=== PATIENT | male | born 1960 | race Caucasian/White ===

== ENCOUNTER 2019-11-20 09:38 | Outpatient (CLI) | payer MEDICARE, SELFPAY ==
--- NOTE | ~2019-11-20 | CT_ITS ---
EXAMINATION: CT lung screening EXAM DATE: 11/20/2019 10:03 INDICATION: Personal history of nicotine dependence. TECHNIQUE: Spiral low dose CT of the chest without contrast. Axial, coronal and sagittal images were reviewed. The dose-length product (DLP) for this examination was 124.01 mGy-cm. The exposure was t ailored according to patient size (auto mA exposure control), and iterative reconstruction (ASIR) was used as additional dose reduction technique. Comparison is made to prior examination from 11/11/2018. FINDINGS: Small ill-defined groundglass region difficult to measure has developed in the right middl e lobe measuring, just above the major fissure. It is about 1 cm in size. There is mild to moderate e mphysema and moderate hyperinflation. Tracheobronchial tree is patent. There is no mediastinal, hi lar or axillary lymphadenopathy. Trace pericardial effusion. There is no pneumothorax. Heart nor mal in size. There is moderate coronary arterial calcification, arterial sclerosis. Upper abdomen i s unremarkable. There is mild thoracic spondylosis without osteoblastic or osteolytic lesions ident ified. IMPRESSION: Lung-RADS category 2, benign appearance or behavior (<1% chance of malignancy); recommend continued LDCT screening in 1 year. Reviewed, dictated and finalized at location A.
== END 2019-11-20 09:39 | disposition home or self-care (01) ==
LOC: ANHIMG 09:48
PROVIDERS: PCP Family Medicine; Visit Provider Family Medicine
DX: Z12.2 Encounter for screening for malignant neoplasm of respiratory organs (principal); Z87.891 Personal history of nicotine dependence
CPT/HCPCS: G0297

== ENCOUNTER 2020-11-04 13:49 | Inpatient (IN) | payer MEDICARE, SELFPAY ==
[2020-11-04] VITALS (8 sets, daily range): BP systolic 92–166; BP diastolic 52–112; PULSE 101–107; RESP 16–22; TEMP 36.2–36.6; O2SAT 94–100; BMI 20.3
--- NOTE | ~2020-11-04 | CT_ITS ---
EXAMINATION: CT chest abdomen pelvis w con EXAM DATE: 11/04/2020 19:10 INDICATION: Altered mental status, syncope. Throat cancer. Low abdominal, mid and low back pain. TECHNIQUE: Spiral CT of the chest, abdomen and pelvis was performed following intravenous injection o f 100 mL Omnipaque 350. Axial, coronal and sagittal images chest, abdomen and pelvis were reviewed. Coronal maximum intensity pixel images of chest reviewed. The dose-length product (DLP) for this ex amination was 407.48 mGy-cm. The exposure was tailored according to patient size (auto mA exposure c ontrol), and iterative reconstruction (ASIR) was used as additional dose reduction technique. Compari son is made to prior examination from 11/20/2019, 11/11/2018. FINDINGS: CHEST: There is mild emphysema and mild bronchiectasis. There are some regions of subsolid left lowe r lobe density appearance most consistent with infectious, postinfectious, or chronic nonspecific pne umonitis (there was similar appearing opacity on prior study in different location). Bronchoalveolar cell cancer not excludable. There are no pleural or pericardial effusions. Tracheobronchial tree is patent. There is no mediastinal, hilar or axillary lymphadenopathy. There is no pneumothorax. Heart normal in size. There is moderate coronary arterial calcification, arterial sclerosis. ABDOMEN PELVIS: The liver, spleen, adrenal glands and pancreas are unremarkable. Gallbladder is unre markable. No biliary obstruction. Portal and splenic veins are patent. Kidneys enhance symmetrical ly. There is no hydronephrosis. The prostate is unremarkable. Small inguinal fat-containing hernia s. The bladder is distended but otherwise unremarkable. There is no retroperitoneal or pelvic lymph adenopathy. There is mild scattered arteriosclerotic disease. The appendix is normal. There is small sliding gastroesophageal hiatal hernia. There is expected am ount of colonic stool. No free intraperitoneal gas. There is mild compression fracture T11 superior endplate, could be acute. Right 4th through 6th subacute rib fractures laterally. There is a T12 bur st fracture with moderate loss of the height centrally, mild loss posteriorly, mild retropulsion supe rior endplate, about 3 mm only causing mild central canal stenosis. Sclerosis of this vertebral body indicates healing response, it is subacute, but is new compared to previous examination and can't exc lude acute component. No osteoblastic or osteolytic lesions identified. IMPRESSION: 1. Several small right lung groundglass opacities, different location than the previously seen opaci ty on prior study. Could be chronic process such as cryptogenic organizing pneumonia, acute or chroni c infectious process, less likely bronchoalveolar cell cancer. Recommend 6-12 month follow-up chest C T. 2. Mild emphysema and bronchiectasis. 3. T11 mild compression fracture which could be acute. 4. Subacute T12 burst fracture, subacute right 4th-6th rib fractures. Can't exclude superimposed acu te component to these. 5. Distended but otherwise unremarkable bladder. Reviewed, dictated and finalized at location A. IMPRESSION: 1. Several small right lung groundglass opacities, different location than the previously seen opacity on prior study. Could be chronic process such as crypt ogenic organizing pneumonia, acute or chronic infectious process, less likely b ronchoalveolar cell cancer. Recommend 6-12 month follow-up chest CT. 2. Mild emphysema and bronchiectasis. 3. T11 mild compression fracture which could be acute. 4. Subacute T12 burst fracture, subacute right 4th-6th rib fractures. Can't ex clude superimposed acute component to these. 5. Distended but otherwise unremarkable bladder.
--- NOTE | ~2020-11-04 | XR_ITS ---
EXAMINATION: XR lumbar spine 2-3V, XR thoracic spine 3V EXAM DATE: 11/04/2020 19:31 INDICATION: Syncope, multiple falls. Mid and low back pain. TECHNIQUE: Lumber spine frontal, lateral, lateral L5-S1 projections for interpretation. Thoracic spi ne frontal, lateral, swimmer's projections. Correlation was made with CT chest abdomen pelvis same da te. FINDINGS: There is T12 burst fracture, with healing response confirmed on CT same date. This has mod erate loss of its height centrally and anteriorly, mild loss posteriorly and slight retropulsion. There is mild compression fracture superior endplate T11 which could be acute. The vertebral body and disc heights are otherwise well maintained. The vertebral bodies are aligned in the AP dimension. Pa raspinal soft tissue is unremarkable. Mild to moderate lower lumbar spondylosis. IMPRESSION: 1. Mild acute T11 compression fracture. 2. Mild to moderate T12 burst fracture, likely subacute. Reviewed, dictated and finalized at location A. IMPRESSION: 1. Mild acute T11 compression fracture. 2. Mild to moderate T12 burst fracture, likely subacute.
--- NOTE | ~2020-11-04 | CT_ITS ---
EXAMINATION: CT brain wo con DATE: 11/04/2020 15:33 INDICATION: Syncope TECHNIQUE: Computed tomography (CT) of the head was performed without intravenous contrast. The mA wa s adjusted according to patient size. Iterative reconstruction technique was employed. Exam dose: 60 5.33 mGy-cm total exam DLP. COMPARISON: None FINDINGS: No intracranial mass lesion or hemorrhage, midline shift or mass effect is evident. There is a chronic lacunar infarct of the left caudate nucleus. There is nonspecific diminished attenuation of the cerebral white matter, likely due to chronic small vessel ischemic changes. Some carotid siphon internal carotid artery calcification is noted. No subdural or epidural hematoma. No orbital mass lesion is detected. There is mucoperiosteal thickening of the maxillary sinuses, right greater than left and some focal s oft tissue opacification of the right ethmoid air cells. The sphenoid and frontal sinuses are clear. The mastoid air cells are normally developed and aerated. No fracture or bone destruction of the cranial vault. IMPRESSION: Cerebral atherosclerosis and chronic small vessel ischemic changes of the cerebral white matter Chronic lacunar infarct left caudate nucleus No acute intracranial abnormality Reviewed, dictated and finalized at Location A. Reviewed, dictated and finalized at location B.
--- NOTE | ~2020-11-04 | XR_ITS ---
EXAMINATION: XR chest 2V DATE: 11/04/2020 15:54 INDICATION: Syncopal episode. Altered mental status. TECHNIQUE: frontal and lateral views of the chest were obtained. COMPARISON: Chest radiograph dated 10/23/[address] dated 11/20/2019 FINDINGS: The lungs are clear with no focal airspace opacities, pulmonary edema, pleural effusion or pneumothor ax. The cardiomediastinal silhouette is normal. Age-indeterminate compression fracture near the thora columbar junction which is new since 11/20/2019. Postoperative changes with multiple surgical clips at the neck. Chronic appearing posterolateral right fourth-sixth rib fractures. IMPRESSION: 1. No acute cardiopulmonary disease. Reviewed, dictated and finalized at location A.
[2020-11-04 14:21] LABS: Glucose Point of Care 183 mg/dl (65-105)
--- NOTE | 2020-11-04 15:15 | ECG_ITS ---
Measurements Intervals Maria Stein Rate: 106 P: 68 CO: 131 QRS: 58 QRSD: 94 T: 50 QT: 371 QTc: 494 Interpretive Statements SINUS TACHYCARDIA BASELINE ARTIFACT- I, II, III, AVR, AVL, AVF, V1-V6 ABNORMAL ECG Electronically Signed On 11-04-2020 16:30:02 CDT by Sourav Limon D.O.
[2020-11-04 15:35] LABS: Add Urine Microscopic? YES; Appearance Urine Clear (Clear); Bilirubin Urine Negative (Negative); Blood Urine Negative (Negative); Color Urine Yellow (Yellow); Glucose Urine UA Negative (Negative); Ketones Urine Trace mg/dL (Negative); Leukocyte Esterase Ur Negative LEU/UL (Negative); Mucus Urine Rare /lpf; Nitrate Urine Negative (Negative); Protein Urine 1+ mg/dL (Negative); RBC Urine 0-2 /hpf (0-2); Specific Grav Ur 1.009 (1.001-1.035); Urobilinogen Urine Negative mg/dL (<2.0); WBC Urine 0-3 /hpf
[2020-11-04 15:56] LABS: Basophils Absolute Auto 0.1 K/mm3 (0.0-0.1); Basophils Percent Auto 0.4 % (0.2-1.2); Eosinophils Absolute Auto 0.2 K/mm3 (0-0.3); Eosinophils Percent Auto 1.3 % (0-4.4); Hematocrit 41.1 % (42.0-52.0); Hemoglobin 12.4 g/dL (14.0-18.0); Immature Granulocyte Absolute 0.15 K/mm3 (0.00-0.031); Immature Granulocyte Percent A 1.1 % (0-0.5); Lymphocytes Absolute Auto 0.77 K/mm3 (0.9-3.2); Lymphocytes Percent Auto 5.9 % (18.3-44.2); Mean Corpuscular HGB Conc 30.2 g/dl (32-36); Mean Corpuscular Hemoglobin 26.8 pg (26-34); Mean Platelet Volume 10.2 fl (7.4-10.4); Monocytes Absolute Auto 0.5 K/mm3 (0.1-0.6); Monocytes Percent Auto 3.4 % (2.6-8.5); Neutrophils Absolute Auto 11.6 K/mm3 (1.3-6.7); Neutrophils Percent Auto 87.9 % (45.5-73.1); Platelet Count Result 315 k/mm3 (150-375); Red Blood Count 4.62 M/mm3 (4.6-6.20); Red Cell Distribution Width 15.4 % (11.5-14.5); White Blood Count 13.2 K/mm3 (4.5-10.0)
[2020-11-04] MEDS: LORazepam INJ (*CRX) 2 MG/ML VIAL 1 MG IV PUSH (16:33)
[2020-11-04] MEDS: SODIUM CHLORIDE 0.9% IV 2,500 ML/1,000 ML BAG 999 ML IV CONT (16:39)
[2020-11-04 16:49] LABS: Lactic Acid Reflex 3.1 mmol/L (0.7-2.1)
[2020-11-04 16:55] LABS: INR 1.1; Prothrombin Time 13.6 Seconds (11.1-14.7)
[2020-11-04 17:03] LABS: Partial Thromboplastin Time 30.7 SECONDS (22.3-36.8)
--- NOTE | 2020-11-04 17:34 | ED.GENADULT ---
HPI - General Adult General Chief complaint: Unspecified <Mike Pacheco MD - Last Filed: 11/05/20 18:34> Stated complaint: ALT LOC <Mike Pacheco MD - Last Filed: 11/05/20 18:34> Time Seen by Provider: 11/04/20 14:38 <Mike Pacheco MD - Last Filed: 11/05/20 18:34> History of Present Illness HPI narrative: Patient is a 60-year-old male who presents ER with syncope and altered mental status. Patient's mother reports over the last several days patient has had multiple episodes of syncope when going from sitting to standing. He is also become more confused than usual. She reports she feels like he needs to use restroom frequently. Patient can only state that he is at a hospital and what his name is. He reports that he is feeling like he has to urinate repeatedly but cannot urinate. No visual evidence of trauma. Patient is not particularly healthy in appearance. <Mike Pacheco MD - Last Filed: 11/05/20 18:34> Related Data Home medications: Home Medications Medication Instructions Recorded Confirmed aspirin 81 mg tablet,delayed 81 mg PO DAILY 05/15/19 11/04/20 release <Mike Pacheco MD - Last Filed: 11/05/20 18:34> Allergies/adverse reactions: Allergies Allergy/AdvReac Type Severity Reaction Status Date / Time morphine Allergy Unknown Vomiting Verified 11/04/20 14:18 <Mike Pacheco MD - Last Filed: 11/05/20 18:34> Review of Systems Review of Systems: ROS unobtainable: Yes unobtainable due to mental status <Mike Pacheco MD - Last Filed: 11/05/20 18:34> [facility] Past Medical History Medical History: Medical History (Updated 11/05/20 @ 11:52 by Jessica Dennis PA-C) Acquired hypothyroidism Autonomic instability Malignant neoplasm overlapping lip, oral cavity and pharynx sites Pure hypercholesterolemia <Mike Pacheco MD - Last Filed: 11/05/20 18:34> Surgical History Surgical History: Surgical History (Updated 11/05/20 @ 01:27 by Sophie Casarez DO) History of oral surgery (~2010) 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 Godwin Rubin code status: DNR/DNI surrogate decision maker: Mother Smoking packs per day: 3 Smoking cigarettes per day: 60.0 Years smoked: 30 Smoking pack-years: 90.00 Smoking status: Former smoker Tobacco type: cigarettes Second hand tobacco smoke exposure: No Smoking end date: 04/26/07 Alcohol intake: never Alcohol use details: He used to drink up to 6 drinks per week but has not done so many years. Substance use: never Substance use type: does not use Additional living arrangements comments: He lives with his mother. 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 Gender identity (if verbalized by the patient): Male Spiritual care concerns: No <Mike Pacheco MD - Last Filed: 11/05/20 18:34> Exam Narrative: Exam Narrative: GENERAL: Ill-appearing, well-nourished, and in mild distress. HEAD: Normocephalic, atraumatic. EYES: PERRL and EOMI. ENT: Mucous membranes moist. CHEST: Clear to auscultation. No respiratory distress. HEART: Tachycardic regular. Normal peripheral pulses. ABDOMEN: Soft, nontender, nondistended, normal active bowel sounds. EXTREMITIES: Normal range of motion. No edema. SKIN: Warm, dry, no rash. NEURO: Alert and
[2020-11-04 17:53] LABS: Alanine Aminotransferase 23 U/L (4-50); Albumin Level 4.4 g/dL (3.5-5.1); Alkaline Phosphatase 62 U/L (38-126); Anion Gap 10 mmol/L (8-16); Aspartate Amino Transferase 70 U/L (17-59); Bilirubin,Total 2.2 mg/dL (0.2-1.3); Blood Urea Nitrogen 8 mg/dL (9-20); Calcium 8.7 mg/dL (8.4-10.2); Carbon Dioxide 23 mmol/L (22-30); Chloride 84 mmol/L (98-107); Estimated CRCL calculation 129 ml/min; Estimated Glomerular Filt Rate > 60; Glucose 126 mg/dL (75-110); Potassium 2.4 mmol/L (3.4-5.0); Sodium 117 mmol/L (137-145)
[2020-11-04 18:07] LABS: CRP 3.6 mg/dL (<1.0)
[2020-11-04] MEDS: POTASSIUM CHLORIDE 20 MEQ PACKET (FOR LIQUID) 40 MEQ PO ×2 (18:23→23:46)
[2020-11-04] MEDS: LORazepam INJ (*CRX) 2 MG/ML VIAL 0.5 MG IV PUSH (19:35)
[2020-11-04 19:38] LABS: Reflex Lactic Acid Yes or No Add Lactic
[2020-11-04] MEDS: SODIUM CHLORIDE 0.9% IV 1,000 ML 999 ML IV CONT (19:40)
[2020-11-04 20:10] LABS: Lactic Acid 1.7 mmol/L (0.7-2.1)
[2020-11-04] MEDS: fentaNYL CITRATE INJ (*CRX) 100 MCG/2 ML VIAL 25 MCG IV PUSH (20:43)
[2020-11-04] MEDS: ONDANSETRON INJ 4 MG/2 ML VIAL IV PUSH (21:44)
[2020-11-04 22:10] LABS: Anion Gap 13 mmol/L (8-16); Blood Urea Nitrogen 6 mg/dL (9-20); Calcium 8.7 mg/dL (8.4-10.2); Carbon Dioxide 25 mmol/L (22-30); Chloride 84 mmol/L (98-107); Estimated CRCL calculation 129 ml/min; Estimated Glomerular Filt Rate > 60; Glucose 166 mg/dL (75-110); Potassium 2.3 mmol/L (3.4-5.0); Sodium 122 mmol/L (137-145)
[2020-11-04 22:31] LABS: Magnesium 1.4 mg/dL (1.6-2.3)
[2020-11-04] MEDS: DEXTROSE 5% 1,000 ML 1,000 ML 100 ML IV CONT (23:46)
[2020-11-05] VITALS (14 sets, daily range): BP systolic 104–137; BP diastolic 52–90; PULSE 64–98; RESP 16–20; TEMP 35.5–36.6; O2SAT 96–100
--- NOTE | 2020-11-05 00:47 | ADMGEN ---
This patient, Emeka Velazco, was admitted to IMU Room 205-01. Patient/family oriented to hospital policies and general routines including ID bracelet, bed and alarms, visiting hours, pain management, procedures, bathroom and other care routines, personal items, smoking policy, room service/diet, and visiting hours. Information on how to activate the Rapid Response Team has been discussed. Patient/Family are encouraged to report perceived risks to care and to ask questions if they do not understand what they are told or what they should do.
--- NOTE | 2020-11-05 01:23 | PM.IMHP ---
H&P: HPI History of Present Illness Date/Time: 11/05/20 01:23 Chief Complaint: Altered mental status Narrative: 60-year-old male with past medical history of oral pharyngeal cancer, COPD, and hypothyroidism who presented to the ER via EMS due to multiple falls and altered mental status. source of information is patient's mother's report and the patient. The patient is a fair historian beds moments of confusion. The patient's mother called EMS because the patient was not acting right. The patient had multiple falls over the last 3-4 days. His mother reported that the patient have been passing out. The patient reports midback pain since his initial fall 3 or 4 days ago. He denies any loss of bowel or bladder control. He reports that his pain is severe in nature and aching. He cannot find a comfortable position. He denies any nausea or vomiting. 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 His mother reports that the patient has no difficulty swallowing thin liquids but has difficulty swallowing certain foods. He reports that he has been feeling very thirsty and states that he drinks a lot a water. Our patients mucous membranes are markedly dry. As he denies any headache or visual changes. He does not think he is been confused recently. He denies any chest pain or shortness of breath. He has not been having any cough or congestion. He did receive his COVID vaccines in June. Review of Systems Review of Systems: Narrative: 12 systems were reviewed with pertinent positives and negatives per HPI. Except as documented in the HPI, all other systems were reviewed and are negative. however patient is only a fair historian and history is somewhat limited. 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 Godwin Rubin code status: DNR/DNI surrogate decision maker: Mother Smoking packs per day: 3 Smoking cigarettes per day: 60.0 Years smoked: 30 Smoking pack-years: 90.00 Smoking status: Former smoker Tobacco type: cigarettes Second hand tobacco smoke exposure: No Smoking end date: 04/26/07 Alcohol intake: never Alcohol use details: He used to drink up to 6 drinks per week but has not done so many years. Substance use: never Substance use type: does not use Additional living arrangements comments: He lives with his mother. 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 Gender identity (if verbalized by the patient): Male Spiritual care concerns: No Meds Home Medications and Allergies Home Medications Medication Instructions Recorded Confirmed Type aspirin 81 mg tablet,delayed 81 mg PO DAILY 05/15/19 11/04/20 History release tramadol 50 mg tablet 50 mg PO Q12H PRN #60 tablet 05/21/20 11/04/20 Rx pantoprazole 40 mg tablet,delayed 40 mg PO QAM #30 tablet 07/02/20 11/04/20 Rx release metoprolol tartrate 50 mg tablet 50 mg PO Q12H #180 tablet 08/20/20 11/04/20 Rx escitalopram oxalate 10 mg tablet 10 mg PO DAILY #30 tablet 09/11/20 11/04/20 Rx levothyroxine 25 mcg tablet 25 mcg PO DAILY #90 table
[2020-11-05] MEDS: HYDROmorphone HCL INJ (*CRX) 1 MG/ML SYR 0.5 MG IV PUSH ×4 (01:55→20:31)
[2020-11-05] MEDS: MAGNESIUM SULF 4 GM/WATER100ML 4 GM/100 ML BAG IVPB (01:55)
[2020-11-05 02:49] LABS: Anion Gap 12 mmol/L (8-16); Blood Urea Nitrogen 5 mg/dL (9-20); Calcium 8.7 mg/dL (8.4-10.2); Carbon Dioxide 23 mmol/L (22-30); Chloride 85 mmol/L (98-107); Estimated CRCL calculation 137 ml/min; Estimated Glomerular Filt Rate > 60; Glucose 141 mg/dL (75-110); Potassium 2.8 mmol/L (3.4-5.0); Sodium 120 mmol/L (137-145)
[2020-11-05] MEDS: POTASSIUM CHLORIDE 20 MEQ PACKET (FOR LIQUID) 40 MEQ PO ×3 (03:20→16:52)
[2020-11-05 05:21] LABS: Free T4 Free Thyroxine Reflex 1.15 ng/dL (0.78-2.19)
[2020-11-05 05:43] LABS: Basophils Percent Auto 0.3 % (0.2-1.2); Eosinophils Absolute Auto 0.1 K/mm3 (0-0.3); Eosinophils Percent Auto 0.7 % (0-4.4); Hematocrit 36.3 % (42.0-52.0); Hemoglobin 12.9 g/dL (14.0-18.0); Immature Granulocyte Absolute 0.15 K/mm3 (0.00-0.031); Immature Granulocyte Percent A 1.3 % (0-0.5); Lymphocytes Absolute Auto 0.76 K/mm3 (0.9-3.2); Lymphocytes Percent Auto 6.6 % (18.3-44.2); Mean Corpuscular HGB Conc 35.5 g/dl (32-36); Mean Corpuscular Hemoglobin 33.9 pg (26-34); Mean Corpuscular Volume 95.5 fl (80-100); Mean Platelet Volume 8.7 fl (7.4-10.4); Monocytes Absolute Auto 0.4 K/mm3 (0.1-0.6); Monocytes Percent Auto 3.6 % (2.6-8.5); Neutrophils Absolute Auto 10.1 K/mm3 (1.3-6.7); Neutrophils Percent Auto 87.5 % (45.5-73.1); Platelet Count Result 221 k/mm3 (150-375); White Blood Count 11.6 K/mm3 (4.5-10.0)
[2020-11-05] MEDS: LEVOTHYROXINE SODIUM 25 MCG TABLET PO (05:51)
[2020-11-05 06:01] LABS: Anion Gap 11 mmol/L (8-16); Blood Urea Nitrogen 4 mg/dL (9-20); Calcium 8.4 mg/dL (8.4-10.2); Carbon Dioxide 26 mmol/L (22-30); Chloride 85 mmol/L (98-107); Estimated CRCL calculation 116 ml/min; Estimated Glomerular Filt Rate > 60; Glucose 132 mg/dL (75-110); Potassium 2.6 mmol/L (3.4-5.0); Sodium 122 mmol/L (137-145)
[2020-11-05 07:38] LABS: Total Triiodothyronine (T3) 0.95 NG/ML (0.97-1.69)
[2020-11-05] MEDS: ENOXAPARIN 40 MG/0.4 ML SYRINGE SUB-Q (08:07)
[2020-11-05] MEDS: ASPIRIN 81 MG ENTERIC TABLET PO (08:07)
[2020-11-05] MEDS: PANTOPRAZOLE 40 MG TABLET PO (08:07)
[2020-11-05] MEDS: METOPROLOL TARTRATE 50 MG TAB PO ×2 (08:08→20:30)
[2020-11-05 09:26] LABS: Anion Gap 10 mmol/L (8-16); Blood Urea Nitrogen 4 mg/dL (9-20); Calcium 8.2 mg/dL (8.4-10.2); Carbon Dioxide 22 mmol/L (22-30); Chloride 86 mmol/L (98-107); Estimated CRCL calculation 137 ml/min; Estimated Glomerular Filt Rate > 60; Glucose 138 mg/dL (75-110); Potassium 3.4 mmol/L (3.4-5.0); Sodium 118 mmol/L (137-145)
--- NOTE | 2020-11-05 11:34 | PM.CNNEP ---
Assessment and Plan Assessment and plan (1) Hyponatremia: Code(s): E87.1 - Hypo-osmolality and hyponatremia Status: Chronic Assessment and Plan: chronic issues as appears to have been present since at least 2016 the highest sodium I was able to find was a readings of 132mmol/L in 2018; most of the time it runs 26 - 130mmol/L related to several issues: - on SSRI - excessive free water intake - possible recurrence of malignancy(?) - less likely based on CT chest/abd/pelvis - lung disease (as noted by CT scan) TSH results noted check cortisol, urine/serum osmolality, SPEP and UPEP check urine electrolytes as well start free water/fluid restriction (2) Hypokalemia: Code(s): E87.6 - Hypokalemia Status: Acute Assessment and Plan: suspect due to total body store depletion continue aggressive repletion follow magnesium (3) Syncope: Qualifiers: Syncope type: unspecified Qualified Code(s): R55 - Syncope and collapse Code(s): R55 - Syncope and collapse Status: Acute Assessment and Plan: related to #1 and #2(?) Brain CT with no acute findings, just old strokes no neurological deficits telemetry without arrhythmias continue supportive therapy (4) Multiple falls: Code(s): R29.6 - Repeated falls Status: Acute Assessment and Plan: as noted by history PT/OT as tolerated Long and extensive discussion (> 20 minutes) with patient's mother at bedside regarding the above issues and plan of action/care. Will continue to follow. History of Present Illness Reason for Consult Consult date: 11/07/20 Reason for consult: hyponatremia and hypokalemia Chief Complaint Chief complaint: Syncopes, multiple falls, hyponatremia,hypokalemia Review of Systems Review of Systems: Narrative: As per HPI. 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 Godwin Rubin code status: DNR/DNI surrogate decision maker: Mother Smoking packs per day: 3 Smoking cigarettes per day: 60.0 Years smoked: 30 Smoking pack-years: 90.00 Smoking status: Former smoker Tobacco type: cigarettes Second hand tobacco smoke exposure: No Smoking end date: 04/26/07 Alcohol intake: never Alcohol use details: He used to drink up to 6 drinks per week but has not done so many years. Substance use: never Substance use type: does not use Additional living arrangements comments: He lives with his mother. 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 Gender identity (if verbalized by the patient): Male Spiritual care concerns: No Meds Home Medications and Allergies Home Medications Medication Instructions Recorded Confirmed Type aspirin 81 mg tablet,delayed 81 mg PO DAILY 05/15/19 11/04/20 History release tramadol 50 mg tablet 50 mg PO Q12H PRN #60 tablet 05/21/20 11/04/20 Rx pantoprazole 40 mg tablet,delayed 40 mg PO QAM #30 tablet 07/02/20 11/04/20 Rx release metoprolol tartrate 50 mg tablet 50 mg PO Q12H #180 tablet 08/20/20 11/04/20 Rx
--- NOTE | 2020-11-05 11:41 | PM.IMPN ---
Progress Note: A&P Assessment and Plan (1) Acute hyponatremia: Code(s): E87.1 - Hypo-osmolality and hyponatremia Status: Acute Assessment and Plan: patient was found to have a sodium of 117 in the ER and was started on normal saline IV fluids - he a corrected a little too fast and was 122 about 4 hours later. He was then switched to D5W by the production administrator - new sodium was 118. D5W has been stopped and repeat sodium in place - Lexapro has been stopped. TSH high and T4 is normal. Will increase levothyroxine by 12.5 as this can cause hyponatremia. - neurology has been consulted and I appreciate their recommendations -last sodium in our records 11/13/19 was 127 so this may be more chronic (2) Acute hypokalemia: Code(s): E87.6 - Hypokalemia Status: Acute Assessment and Plan: potassium was significantly low on admission at 2.4 with a magnesium of 1.4 - he has been getting potassium and his last potassium was 3.4. Will redraw later today as well -electrolyte abnormalities likely cuasing weakness (3) Syncope: Qualifiers: Syncope type: unspecified Qualified Code(s): R55 - Syncope and collapse Code(s): R55 - Syncope and collapse Status: Acute Assessment and Plan: Triage note states pt had been 'passing out since wednesday' -ct brain shows old strokes, nothing acute -no neurological deficits -tele without any arrhythmias, will continue to monitor on there -could be due to dehydration. Will monitor for further symptoms. No seizure like activity here (4) Closed wedge compression fracture of T11 vertebra: Qualifiers: Encounter type: subsequent encounter Fracture healing: with nonunion Qualified Code(s): S22.080K - Wedge compression fracture of T11-T12 vertebra, subsequent encounter for fracture with nonunion Code(s): S22.080A - Wedge compression fracture of T11-T12 vertebra, initial encounter for closed fracture Status: Acute Assessment and Plan: Discussed fractures with Dr. Bishop -No worrisome neurological symptoms as the pt has sensation and function in her LE -Plan for TLSO brace when out of bed -f/u with Dr. bishop -PT/OT for hx of falls (5) Closed burst fracture of T12 vertebra: Code(s): S22.081A - Stable burst fracture of T11-T12 vertebra, initial encounter for closed fracture Status: Acute Assessment and Plan: As above (6) Right rib fracture: Qualifiers: Encounter type: subsequent encounter Fracture healing: with nonunion Fracture type: closed Rib fracture type: multiple ribs Qualified Code(s): S22.41XK - Multiple fractures of ribs, right side, subsequent encounter for fracture with nonunion Code(s): S22.31XA - Fracture of one rib, right side, initial encounter for closed fracture Status: Acute Assessment and Plan: Due to falls (7) Multiple falls: Code(s): R29.6 - Repeated falls Status: Acute Assessment and Plan: PT/OT ordered (8) Abnormal CT scan, lung: Code(s): R91.8 - Other nonspecific abnormal finding of lung field Status: Acute Assessment and Plan: CT reads: Several small right lung groundglass opacities, different location than the previously seen opacity on prior study. Could be chronic process such as cryptogenic organizing pneumonia, acute or chronic infectious process, less likely bronchoalveolar cell cancer. Recommend 6-12 month follow-up chest CT. -No signs of active PNA on exam today but will monitor for cough -consult pulmonology (9) Hypothyroid: Code(s): E03.9 - Hypothyroidism, unspecified Status: Acute Assessment and Plan: TSH 10.3, T4 1.15, T3 .95 -increase levothyroxine dose by 12.5 -can affect sodium Additional Plan old lacunar infarct in the left caudate nucleus-continue daily aspirin. Time Spent With Patient Time with patient: 25 - 35 m
--- NOTE | 2020-11-05 15:05 | PCPTNOTE ---
Attempted PT evaluation. Unable to see due to orders for TLSO brace when out of bed per Dr. Bishop. Pt does not yet have TLSO brace in room. Will follow. KEVIN ArroyoT
[2020-11-05 15:11] LABS: Anion Gap 11 mmol/L (8-16); Blood Urea Nitrogen 4 mg/dL (9-20); Calcium 8.7 mg/dL (8.4-10.2); Carbon Dioxide 24 mmol/L (22-30); Chloride 87 mmol/L (98-107); Estimated CRCL calculation 116 ml/min; Estimated Glomerular Filt Rate > 60; Glucose 85 mg/dL (75-110); Potassium 3.3 mmol/L (3.4-5.0); Sodium 122 mmol/L (137-145)
[2020-11-05 18:12] LABS: Anion Gap 11 mmol/L (8-16); Blood Urea Nitrogen 4 mg/dL (9-20); Calcium 8.6 mg/dL (8.4-10.2); Carbon Dioxide 21 mmol/L (22-30); Chloride 87 mmol/L (98-107); Estimated CRCL calculation 137 ml/min; Estimated Glomerular Filt Rate > 60; Glucose 95 mg/dL (75-110); Potassium 3.8 mmol/L (3.4-5.0)
[2020-11-05 18:20] LABS: Sodium 119 mmol/L (137-145)
[2020-11-05 18:53] LABS: Creatinine Urine 75.8 mg/dL; Total Protein Urine Random 35 mg/dL; Ur Ttl Prot Creatinine Ratio 0.46 mg/mg (0-0.20)
[2020-11-05 19:25] LABS: Potassium Urine Random 47.6 meq/L; Sodium Urine Random 50 meq/L
[2020-11-05 19:47] LABS: Eosinophil Urine None Seen % (None Seen)
[2020-11-05 22:23] LABS: Sodium 120 mmol/L (137-145)
[2020-11-06] VITALS (14 sets, daily range): BP systolic 92–166; BP diastolic 59–85; PULSE 47–100; RESP 14–20; TEMP 36.2–36.5; O2SAT 94–100
[2020-11-06] MEDS: HYDROmorphone HCL INJ (*CRX) 1 MG/ML SYR 0.5 MG IV PUSH ×2 (03:02→20:09)
[2020-11-06 05:37] LABS: Basophils Absolute Auto 0.1 K/mm3 (0.0-0.1); Basophils Percent Auto 1.1 % (0.2-1.2); Eosinophils Absolute Auto 0.4 K/mm3 (0-0.3); Eosinophils Percent Auto 4.5 % (0-4.4); Hematocrit 34.7 % (42.0-52.0); Hemoglobin 12.3 g/dL (14.0-18.0); Lymphocytes Absolute Auto 0.67 K/mm3 (0.9-3.2); Lymphocytes Percent Auto 6.8 % (18.3-44.2); Mean Corpuscular HGB Conc 35.4 g/dl (32-36); Mean Corpuscular Hemoglobin 33.8 pg (26-34); Mean Corpuscular Volume 95.3 fl (80-100); Mean Platelet Volume 9.7 fl (7.4-10.4); Monocytes Absolute Auto 1.4 K/mm3 (0.1-0.6); Monocytes Percent Auto 13.8 % (2.6-8.5); Neutrophils Absolute Auto 7.1 K/mm3 (1.3-6.7); Neutrophils Percent Auto 71.8 % (45.5-73.1); Platelet Count Result 243 k/mm3 (150-375); Red Blood Count 3.64 M/mm3 (4.6-6.20); Red Cell Distribution Width 10.9 % (11.5-14.5); White Blood Count 9.9 K/mm3 (4.5-10.0)
[2020-11-06 05:45] LABS: CRP 4.8 mg/dL (<1.0); Magnesium 1.9 mg/dL (1.6-2.3)
[2020-11-06] MEDS: LEVOTHYROXINE SODIUM 37.5 MCG BY MOUTH (05:58)
[2020-11-06 06:12] LABS: Albumin Level 4.1 g/dL (3.5-5.1); Anion Gap 10 mmol/L (8-16); Blood Urea Nitrogen 8 mg/dL (9-20); Carbon Dioxide 24 mmol/L (22-30); Chloride 86 mmol/L (98-107); Estimated CRCL calculation 80 ml/min; Estimated Glomerular Filt Rate > 60; Glucose 102 mg/dL (75-110); Phosphorus 2.8 mg/dL (2.5-4.5); Potassium 3.8 mmol/L (3.4-5.0); Sodium 120 mmol/L (137-145)
[2020-11-06] MEDS: METOPROLOL TARTRATE 50 MG TAB PO ×2 (08:44→20:08)
[2020-11-06] MEDS: PANTOPRAZOLE 40 MG TABLET PO (08:44)
[2020-11-06] MEDS: ASPIRIN 81 MG ENTERIC TABLET PO (08:44)
[2020-11-06] MEDS: ENOXAPARIN 40 MG/0.4 ML SYRINGE SUB-Q (08:44)
[2020-11-06] MEDS: SODIUM CHLORIDE 500 MG TABLET PO ×2 (12:56→18:02)
[2020-11-06 13:08] LABS: Sodium 120 mmol/L (137-145)
[2020-11-06] MEDS: SODIUM CHLORIDE 0.9% IV 250 ML 50 ML IV CONT (14:01)
--- NOTE | 2020-11-06 14:10 | PM.IMPN ---
Progress Note: A&P Assessment and Plan (1) Acute hyponatremia: Code(s): E87.1 - Hypo-osmolality and hyponatremia Status: Acute Assessment and Plan: patient was found to have a sodium of 117 in the ER and has fluctuated since then. -Last sodium 120, trial of NS now with recheck after it is finished. Dr. Croft has been monitoring this and adjusting treatment as needed - Lexapro has been stopped. TSH high and T4 is normal. Levothyroxine by 12.5 as this can cause hyponatremia. - nephrology has been consulted and I appreciate their recommendations -last sodium in our records 11/13/19 was 127 so this may be more chronic (2) Acute hypokalemia: Code(s): E87.6 - Hypokalemia Status: Acute Assessment and Plan: potassium was significantly low on admission at 2.4 with a magnesium of 1.4 -today his potassium is 3.8 and mag 1.9 -electrolyte abnormalities likely causing weakness (3) Syncope: Qualifiers: Syncope type: unspecified Qualified Code(s): R55 - Syncope and collapse Code(s): R55 - Syncope and collapse Status: Acute Assessment and Plan: Triage note states pt had been 'passing out since wednesday' -ct brain shows old strokes, nothing acute. Pt unaware of old stroke but mom not here to verify -no neurological deficits -tele without any arrhythmias, will continue to monitor on there -could be due to dehydration/ electrolyte imbalances. Will monitor for further symptoms. No seizure like activity here (4) Closed wedge compression fracture of T11 vertebra: Qualifiers: Encounter type: subsequent encounter Fracture healing: with nonunion Qualified Code(s): S22.080K - Wedge compression fracture of T11-T12 vertebra, subsequent encounter for fracture with nonunion Code(s): S22.080A - Wedge compression fracture of T11-T12 vertebra, initial encounter for closed fracture Status: Acute Assessment and Plan: Discussed fractures with Dr. Bishop -No worrisome neurological symptoms as the pt has sensation and function in her LE -Continue TLSO brace when out of bed -f/u with Dr. bishop -PT/OT for hx of falls (5) Closed burst fracture of T12 vertebra: Code(s): S22.081A - Stable burst fracture of T11-T12 vertebra, initial encounter for closed fracture Status: Acute Assessment and Plan: As above (6) Right rib fracture: Qualifiers: Encounter type: subsequent encounter Fracture healing: with nonunion Fracture type: closed Rib fracture type: multiple ribs Qualified Code(s): S22.41XK - Multiple fractures of ribs, right side, subsequent encounter for fracture with nonunion Code(s): S22.31XA - Fracture of one rib, right side, initial encounter for closed fracture Status: Acute Assessment and Plan: Due to falls (7) Multiple falls: Code(s): R29.6 - Repeated falls Status: Acute Assessment and Plan: PT/OT ordered (8) Abnormal CT scan, lung: Code(s): R91.8 - Other nonspecific abnormal finding of lung field Status: Acute Assessment and Plan: CT reads: Several small right lung groundglass opacities, different location than the previously seen opacity on prior study. Could be chronic process such as cryptogenic organizing pneumonia, acute or chronic infectious process, less likely bronchoalveolar cell cancer. Recommend 6-12 month follow-up chest CT. -No signs of active PNA on exam today but will monitor for cough -consult pulmonology (9) Hypothyroid: Code(s): E03.9 - Hypothyroidism, unspecified Status: Acute Assessment and Plan: TSH 10.3, T4 1.15, T3 .95 -levothyroxine increased by 12.5 -can affect sodium Subjective Date/time seen: 11/06/20 14:10 Interval history: Pt is a 60 y/o male here for Electrolyte abnormalities and fall. Patient was seen today and states his pain is much better and feels like
--- NOTE | 2020-11-06 17:21 | P.PNNP_ITS ---
Progress Note: A&P Assessment and Plan (1) Hyponatremia: Code(s): E87.1 - Hypo-osmolality and hyponatremia Status: Chronic Assessment and Plan: * chronic issues as appears to have been present since at least 2015 * the highest sodium I was able to find was a readings of 132mmol/L in 2018; most of the time it runs 126 - 130mmol/L * related to several issues: - on SSRI - excessive free water intake - possible recurrence of malignancy(?) - less likely based on CT chest/abd/pelvis - lung disease (as noted by CT scan) * TSH noted and levothyroxine adjusted * urine/serum osmolality, SPEP and UPEP pending * urine electrolytes suggest some pre-renal issues (due to poor oral intake presumably) * start free water/fluid restriction (known history of excessive fluid/water intake) * will also start salt tabs as well. (2) Hypokalemia: Code(s): E87.6 - Hypokalemia Status: Acute Assessment and Plan: * suspect due to total body store depletion * continue aggressive repletion * follow magnesium (3) Syncope: Qualifiers: Syncope type: unspecified Qualified Code(s): R55 - Syncope and collapse Code(s): R55 - Syncope and collapse Status: Acute Assessment and Plan: * related to #1 and #2(?) * Brain CT with no acute findings, just old strokes * no neurological deficits * telemetry without arrhythmias * continue supportive therapy (4) Multiple falls: Code(s): R29.6 - Repeated falls Status: Acute Assessment and Plan: * as noted by history * PT/OT as tolerated Will continue to follow. Subjective Date/time seen: 11/06/20 17:21 States he is slowly feeling better in general; although his sodium has not improved that much, clinically, he is much more awake and alert than on admission; no apparent distress voiced. Exam Narrative: Exam Narrative: General: WD/WN male in NAD Heart: normal S1 and S2; no rub Lungs: clear to auscultation Abdomen: soft, nontender, nondistended, positive bowel sounds Extremities: no cyanosis or clubbing; no edema Skin: warm and dry Objective Data Vital Signs Vital Signs: Vital Signs Temp Pulse Resp BP Pulse Ox 11/06/20 16:00 36.2 C L 77 18 166/85 H 100 11/06/20 14:00 78 11/06/20 12:00 36.2 C L 100 20 141/83 H 94 11/06/20 10:00 77 11/06/20 08:44 89 11/06/20 08:00 36.5 C 65 18 92/59 L 97 11/06/20 06:00 76 11/06/20 04:00 36.3 C L 74 20 112/66 97 11/06/20 02:00 69 11/05/20 23:26 36.2 C L 64 20 106/52 L 97 11/05/20 22:00 84 11/05/20 20:30 92 11/05/20 20:00 36.4 C 92 20 104/71 97 11/05/20 18:00 75 Intake/Output Intake/Output: Intake & Output 11/03/20 11/04/20 11/05/20 11/06/20 23:59 23:59 23:59 23:59 Intake Total 2800 1750 620 Output Total 500 875 300 Balance 2300 875 320 Meds/Results Medications: Active Medications Generic Name Dose Route Start Last Admin Trade Name Billy PRN Reason Stop Dose Admin Aspirin 81 mg 11/05/20 09:00 11/06/20 08:44 Aspirin 81 Mg Enteric Tablet PO 81 mg DAILY [facility] Administ
--- NOTE | 2020-11-06 17:21 | PM.PNNEP ---
Progress Note: A&P Assessment and Plan (1) Hyponatremia: Code(s): E87.1 - Hypo-osmolality and hyponatremia Status: Chronic Assessment and Plan: chronic issues as appears to have been present since at least 2016 the highest sodium I was able to find was a readings of 132mmol/L in 2018; most of the time it runs 126 - 130mmol/L related to several issues: - on SSRI - excessive free water intake - possible recurrence of malignancy(?) - less likely based on CT chest/abd/pelvis - lung disease (as noted by CT scan) TSH noted and levothyroxine adjusted urine/serum osmolality, SPEP and UPEP pending urine electrolytes suggest some pre-renal issues (due to poor oral intake presumably) start free water/fluid restriction (known history of excessive fluid/water intake) will also start salt tabs as well. (2) Hypokalemia: Code(s): E87.6 - Hypokalemia Status: Acute Assessment and Plan: suspect due to total body store depletion continue aggressive repletion follow magnesium (3) Syncope: Qualifiers: Syncope type: unspecified Qualified Code(s): R55 - Syncope and collapse Code(s): R55 - Syncope and collapse Status: Acute Assessment and Plan: related to #1 and #2(?) Brain CT with no acute findings, just old strokes no neurological deficits telemetry without arrhythmias continue supportive therapy (4) Multiple falls: Code(s): R29.6 - Repeated falls Status: Acute Assessment and Plan: as noted by history PT/OT as tolerated Will continue to follow. Subjective Date/time seen: 11/06/20 17:21 States he is slowly feeling better in general; although his sodium has not improved that much, clinically, he is much more awake and alert than on admission; no apparent distress voiced. Exam Narrative: Exam Narrative: General: WD/WN male in NAD Heart: normal S1 and S2; no rub Lungs: clear to auscultation Abdomen: soft, nontender, nondistended, positive bowel sounds Extremities: no cyanosis or clubbing; no edema Skin: warm and dry Objective Data Vital Signs Vital Signs: Vital Signs Temp Pulse Resp BP Pulse Ox 11/06/20 16:00 36.2 C L 77 18 166/85 H 100 11/06/20 14:00 78 11/06/20 12:00 36.2 C L 100 20 141/83 H 94 11/06/20 10:00 77 11/06/20 08:44 89 11/06/20 08:00 36.5 C 65 18 92/59 L 97 11/06/20 06:00 76 11/06/20 04:00 36.3 C L 74 20 112/66 97 11/06/20 02:00 69 11/05/20 23:26 36.2 C L 64 20 106/52 L 97 11/05/20 22:00 84 11/05/20 20:30 92 11/05/20 20:00 36.4 C 92 20 104/71 97 11/05/20 18:00 75 Intake/Output Intake/Output: Intake & Output 11/03/20 11/04/20 11/05/20 11/06/20 23:59 23:59 23:59 23:59 Intake Total 2800 1750 620 Output Total 500 875 300 Balance 2300 875 320 Meds/Results Medications: Active Medications Generic Name Dose Route Start Last Admin Trade Name Freq PRN Reason Stop Dose Admin Aspirin 81 mg 11/05/20 09:00 11/06/20 08:44 Aspirin 81 Mg Enteric Tablet PO 81 mg DAILY AMANDA Administration Enoxaparin Sodium 40 mg 11/05/20 09:00 11/06/20 08:44 Enoxaparin 40 Mg/0.4 Ml Syringe SUB-Q 40 mg DAILY AMANDA Administration Hydromorphone HCl 0.5 mg 11/05/20 01:22 11/06/20 03:02 Hydromorphone Hcl Inj (*Crx) 1 Mg/Ml Syr IV PUSH 0.5 mg Q3H PRN Administration Pain Rated 7-10 Sodium Chloride 250 mls @ 50 mls/hr 11/06/20 13:45 11/06/20 14:01 Normal Saline Iv IV CONT 11/06/20 17:44 50 mls/hr .Q5H AMANDA Administration Levothyroxine Sodium 12.5 mcg/ 37.5 mcg 11/06/20 06:30 11/06/20 05:58 Levothyroxine Sodium 25 mcg BY MOUTH 37.5 mcg DAILY@0630 AMANDA Administration Metoprolol Tartrate 50 mg 11/05/20 09:00 11/06/20 08:44 Metoprolol Tartrate 50 Mg Tab PO 50 mg Q12HR AMANDA Administration Pantoprazole Sodium
[2020-11-06 19:03] LABS: Sodium 120 mmol/L (137-145)
[2020-11-06 22:56] LABS: Sodium 120 mmol/L (137-145)
[2020-11-07] VITALS (12 sets, daily range): BP systolic 120–151; BP diastolic 75–88; PULSE 68–86; RESP 14–18; TEMP 36.6–37.1; O2SAT 92–100
[2020-11-07 05:25] LABS: Hematocrit 37.6 % (42.0-52.0); Hemoglobin 12.9 g/dL (14.0-18.0); Mean Corpuscular HGB Conc 34.3 g/dl (32-36); Mean Corpuscular Hemoglobin 33.5 pg (26-34); Mean Corpuscular Volume 97.7 fl (80-100); Mean Platelet Volume 9.4 fl (7.4-10.4); Platelet Count Result 264 k/mm3 (150-375); Red Blood Count 3.85 M/mm3 (4.6-6.20); White Blood Count 11.2 K/mm3 (4.5-10.0)
[2020-11-07 05:38] LABS: Anion Gap 11 mmol/L (8-16); Blood Urea Nitrogen 12 mg/dL (9-20); Calcium 9.2 mg/dL (8.4-10.2); Carbon Dioxide 25 mmol/L (22-30); Chloride 88 mmol/L (98-107); Estimated CRCL calculation 80 ml/min; Estimated Glomerular Filt Rate > 60; Glucose 102 mg/dL (75-110); Magnesium 1.6 mg/dL (1.6-2.3); Potassium 3.5 mmol/L (3.4-5.0); Sodium 124 mmol/L (137-145)
[2020-11-07] MEDS: LEVOTHYROXINE SODIUM 37.5 MCG BY MOUTH (05:46)
[2020-11-07] MEDS: ASPIRIN 81 MG ENTERIC TABLET PO (08:56)
[2020-11-07] MEDS: METOPROLOL TARTRATE 50 MG TAB PO ×2 (08:56→20:30)
[2020-11-07] MEDS: SODIUM CHLORIDE 1 GM TABLET PO ×2 (08:58→17:01)
[2020-11-07] MEDS: ENOXAPARIN 40 MG/0.4 ML SYRINGE SUB-Q (08:58)
[2020-11-07] MEDS: PANTOPRAZOLE 40 MG TABLET PO (08:58)
--- NOTE | 2020-11-07 14:05 | PM.IMPN ---
Progress Note: A&P Assessment and Plan (1) Acute hyponatremia: Code(s): E87.1 - Hypo-osmolality and hyponatremia Status: Acute Assessment and Plan: Patient was found to have a sodium of 117 in the ER. Possibly related to excess free water intake and/or hypothyroidism and/or Lexapro. Lexapro has been stopped. TSH high and T4 is normal. Levothyroxine by 12.5 as this can cause hyponatremia. Trial of NS and remains on NaCl. Last sodium in our records 11/13/19 was 127 so this may be more chronic. Sodium 124 this morning. Continue to monitor. Continue fluid restrictions. Home in 1-2 days if sodium continues to improve. (2) Acute hypokalemia: Code(s): E87.6 - Hypokalemia Status: Acute Assessment and Plan: Potassium was significantly low on admission at 2.4 with a magnesium of 1.4. These were replaced. Today his potassium is 3.5 and mag 1.6. Electrolyte abnormalities likely contributing to his weakness. (3) Syncope: Qualifiers: Syncope type: unspecified Qualified Code(s): R55 - Syncope and collapse Code(s): R55 - Syncope and collapse Status: Acute Assessment and Plan: Triage note states pt had been 'passing out since Wednesday'. CT brain shows old strokes but nothing acute. Pt unaware of old stroke. No neurological deficits and up walking in the halls. No seizure like activity here. Tele without any arrhythmias so will stop. Suspect syncope related to dehydration/ electrolyte imbalances. Will monitor for further symptoms. (4) Closed wedge compression fracture of T11 vertebra: Qualifiers: Encounter type: subsequent encounter Fracture healing: with nonunion Qualified Code(s): S22.080K - Wedge compression fracture of T11-T12 vertebra, subsequent encounter for fracture with nonunion Code(s): S22.080A - Wedge compression fracture of T11-T12 vertebra, initial encounter for closed fracture Status: Acute Assessment and Plan: Patient presents with an acute T11 compression fracture and a subacute T12 compression fracture. Case has been discussed with Dr. Bishop. Continue TLSO brace when out of bed. Follow-up with Dr. Bishop. Continue PT and OT. (5) Closed burst fracture of T12 vertebra: Code(s): S22.081A - Stable burst fracture of T11-T12 vertebra, initial encounter for closed fracture Status: Acute Assessment and Plan: As above (6) Right rib fracture: Qualifiers: Encounter type: subsequent encounter Fracture healing: with nonunion Fracture type: closed Rib fracture type: multiple ribs Qualified Code(s): S22.41XK - Multiple fractures of ribs, right side, subsequent encounter for fracture with nonunion Code(s): S22.31XA - Fracture of one rib, right side, initial encounter for closed fracture Status: Acute Assessment and Plan: Due to falls. Continue symptomatic care. (7) Multiple falls: Code(s): R29.6 - Repeated falls Status: Acute Assessment and Plan: Related to his hyponatremia. Continue PT/OT (8) Abnormal CT scan, lung: Code(s): R91.8 - Other nonspecific abnormal finding of lung field Status: Acute Assessment and Plan: CT showing several small right lung groundglass opacities, different location than the previously seen opacity on prior study. Could be chronic process such as cryptogenic organizing pneumonia, acute or chronic infectious process, less likely bronchoalveolar cell cancer. No signs of active PNA. White count was mildly elevated on admission but did trend downward. Recommend 6-12 month follow-up chest CT. (9) Hypothyroid: Code(s): E03.9 - Hypothyroidism, unspecified Status: Acute Assessment and Plan: TSH 10.3, FT4 1.15 and TT3 0.95. Could be contributing to the low sodium. Levothyroxine increased by 12.5mcg. will need repeat TSH as an outpatient. (10) DVT prophylaxis: Cod
[2020-11-07 15:35] LABS: Sodium 122 mmol/L (137-145)
--- NOTE | 2020-11-07 16:33 | P.PNNP_ITS ---
Progress Note: A&P Assessment and Plan (1) Hyponatremia: Code(s): E87.1 - Hypo-osmolality and hyponatremia Status: Chronic Assessment and Plan: * chronic issues as appears to have been present since at least 2015 * the highest sodium I was able to find was a readings of 132mmol/L in 2018; most of the time it runs 126 - 130mmol/L * related to several issues: - on SSRI - excessive free water intake - possible recurrence of malignancy(?) - less likely based on CT chest/abd/pelvis - lung disease (as noted by CT scan) * TSH noted and levothyroxine adjusted * urine/serum osmolality, SPEP and UPEP pending * urine electrolytes suggest some pre-renal issues (due to poor oral intake presumably) * start free water/fluid restriction (known history of excessive fluid/water intake) * titrate salt tab dosage (2) Hypokalemia: Code(s): E87.6 - Hypokalemia Status: Acute Assessment and Plan: * suspect due to total body store depletion * continue aggressive repletion * follow magnesium (3) Syncope: Qualifiers: Syncope type: unspecified Qualified Code(s): R55 - Syncope and collapse Code(s): R55 - Syncope and collapse Status: Acute Assessment and Plan: * related to #1 and #2(?) * Brain CT with no acute findings, just old strokes * no neurological deficits * telemetry without arrhythmias * continue supportive therapy (4) Multiple falls: Code(s): R29.6 - Repeated falls Status: Acute Assessment and Plan: * as noted by history * PT/OT as tolerated Will continue to follow. Subjective Date/time seen: 11/07/20 16:33 Overall, he seems to be doing much better; ambulating in room and hallway; eating okay and in no apparent distress; asking me when can he go home. Exam Narrative: Exam Narrative: General: WD/WN male in NAD Heart: normal S1 and S2; no rub Lungs: clear to auscultation Abdomen: soft, nontender, nondistended, positive bowel sounds Extremities: no cyanosis or clubbing; no edema Skin: warm and intact Objective Data Vital Signs Vital Signs: Vital Signs Temp Pulse Resp BP Pulse Ox 11/07/20 15:52 36.6 C 80 16 151/88 H 100 11/07/20 12:00 36.6 C 73 18 133/75 100 11/07/20 10:47 92 11/07/20 10:00 72 11/07/20 08:56 82 11/07/20 08:00 36.9 C 72 14 148/83 H 94 11/07/20 05:58 76 11/07/20 04:00 37.1 C 72 14 140/86 98 11/07/20 03:29 72 17 96 11/07/20 02:00 70 11/07/20 00:00 37.1 C 68 17 120/80 96 11/06/20 23:59 78 14 100 11/06/20 22:00 76 11/06/20 20:08 78 11/06/20 20:00 36.4 C 75 14 123/85 100 Intake/Output Intake/Output: Intake & Output 11/04/20 11/05/20 11/06/20 11/07/20 23:59 23:59 23:59 23:59 Intake Total 2800 1750 1900 120 Output Total 396 158 9182 1050 Balance 2300 875 400 -930 Meds/Results Medications: Active Medications Generic Name Dose Route Start Last Admin Trade Name Freq PRN Reason Stop Dose Admin Aspirin 81 mg 11/05/20 09:00 11/07/20 08:56 Aspirin 81 Mg Enteric Tablet PO 81 mg DAILY [facility] Administ
--- NOTE | 2020-11-07 16:33 | PM.PNNEP ---
Progress Note: A&P Assessment and Plan (1) Hyponatremia: Code(s): E87.1 - Hypo-osmolality and hyponatremia Status: Chronic Assessment and Plan: chronic issues as appears to have been present since at least 2016 the highest sodium I was able to find was a readings of 132mmol/L in 2018; most of the time it runs 126 - 130mmol/L related to several issues: - on SSRI - excessive free water intake - possible recurrence of malignancy(?) - less likely based on CT chest/abd/pelvis - lung disease (as noted by CT scan) TSH noted and levothyroxine adjusted urine/serum osmolality, SPEP and UPEP pending urine electrolytes suggest some pre-renal issues (due to poor oral intake presumably) start free water/fluid restriction (known history of excessive fluid/water intake) titrate salt tab dosage (2) Hypokalemia: Code(s): E87.6 - Hypokalemia Status: Acute Assessment and Plan: suspect due to total body store depletion continue aggressive repletion follow magnesium (3) Syncope: Qualifiers: Syncope type: unspecified Qualified Code(s): R55 - Syncope and collapse Code(s): R55 - Syncope and collapse Status: Acute Assessment and Plan: related to #1 and #2(?) Brain CT with no acute findings, just old strokes no neurological deficits telemetry without arrhythmias continue supportive therapy (4) Multiple falls: Code(s): R29.6 - Repeated falls Status: Acute Assessment and Plan: as noted by history PT/OT as tolerated Will continue to follow. Subjective Date/time seen: 11/07/20 16:33 Overall, he seems to be doing much better; ambulating in room and hallway; eating okay and in no apparent distress; asking me when can he go home. Exam Narrative: Exam Narrative: General: WD/WN male in NAD Heart: normal S1 and S2; no rub Lungs: clear to auscultation Abdomen: soft, nontender, nondistended, positive bowel sounds Extremities: no cyanosis or clubbing; no edema Skin: warm and intact Objective Data Vital Signs Vital Signs: Vital Signs Temp Pulse Resp BP Pulse Ox 11/07/20 15:52 36.6 C 80 16 151/88 H 100 11/07/20 12:00 36.6 C 73 18 133/75 100 11/07/20 10:47 92 07/15/21 10:00 72 11/07/20 08:56 82 11/07/20 08:00 36.9 C 72 14 148/83 H 94 11/07/20 05:58 76 11/07/20 04:00 37.1 C 72 14 140/86 98 11/07/20 03:29 72 17 96 11/07/20 02:00 70 11/07/20 00:00 37.1 C 68 17 120/80 96 11/06/20 23:59 78 14 100 11/06/20 22:00 76 11/06/20 20:08 78 11/06/20 20:00 36.4 C 75 14 123/85 100 Intake/Output Intake/Output: Intake & Output 11/04/20 11/05/20 11/06/20 11/07/20 23:59 23:59 23:59 23:59 Intake Total 2800 1750 1900 120 Output Total 961 658 4986 1050 Balance 2300 875 400 -930 Meds/Results Medications: Active Medications Generic Name Dose Route Start Last Admin Trade Name Freq PRN Reason Stop Dose Admin Aspirin 81 mg 11/05/20 09:00 11/07/20 08:56 Aspirin 81 Mg Enteric Tablet PO 81 mg DAILY AMANDA Administration Enoxaparin Sodium 40 mg 11/05/20 09:00 11/07/20 08:58 Enoxaparin 40 Mg/0.4 Ml Syringe SUB-Q 40 mg DAILY AMANDA Administration Hydromorphone HCl 0.5 mg 11/05/20 01:22 11/06/20 20:09 Hydromorphone Hcl Inj (*Crx) 1 Mg/Ml Syr IV PUSH 0.5 mg Q3H PRN Administration Pain Rated 7-10 Levothyroxine Sodium 12.5 mcg/ 37.5 mcg 11/06/20 06:30 11/07/20 05:46 Levothyroxine Sodium 25 mcg BY MOUTH 37.5 mcg DAILY@0630 AMANDA Administration Metoprolol Tartrate 50 mg 11/05/20 09:00 11/07/20 08:56 Metoprolol Tartrate 50 Mg Tab PO 50 mg Q12HR AMANDA Administration Pantoprazole Sodium 40 mg 11/05/20 09:00 11/07/20 08:58 Pantoprazole 40 Mg Tablet PO 40 mg QAM AMANDA Administration Sodium Chloride 1 gm 11/07/20 09:00 11/07/20 17:01
--- NOTE | 2020-11-07 18:53 | PM.CNPUL ---
Assessment and Plan Assessment and plan (1) Abnormal CT scan, lung: Code(s): R91.8 - Other nonspecific abnormal finding of lung field Status: Acute Assessment and Plan: He has ground-glass opacities seen in the right lower lung field, radiologist suggests repeat chest CT in 6-12 months Diff Dx : [employer], acute vs chronic infection, bronchoalveolar carcinoma He was admitted with confusion, falls, and abnormal thinking. His ability to give a coherent history is questionable. He does not have specific symptoms to suggest lung disease. He needs PFTs, 6 min walk, f/u CT scan and close observation. He does not require any acute intervention at this time. he was exposed to asbestos using asbestos gloves when he worked at [employer] over 30 yeras ago. He did not use respiratory protective equipment. Latency for development of asbestos-related lung disease is 20-30 years, and he does not have findings on CT scan to suggest asbestosis or mesothelioma. Chest CT shows mild emphysema and bronchiectasis. He is not on COPD meds. He does not says that he has a chronic productive cough. Will start Symbicort 160/4.5, Spiriva 1 inhalation daily and albuterol q.i.d. scheduled to see if this treatment improves pulmonary hygiene and possibly symptoms. Some people with COPD do not realize limitations until starting bronchodilator therapy then feel better. (2) History of tobacco abuse: Code(s): Z87.891 - Personal history of nicotine dependence Status: Acute Assessment and Plan: quit 10 years ago smoked up to 2 ppd, smoked 25 years (3) Emphysema of lung: Code(s): J43.9 - Emphysema, unspecified Status: Acute Assessment and Plan: mild emphysema is noted on chest CT as well as bronchiectasis COPD can be accompanied by bronchiectasis but the patient does not have significant symptoms to suggest his bronchiectasis is clinically problematic will start Symbicort, Spiriva and albuterol outpatient PFTs History of Present Illness History of Present Illness Consult date: 11/07/20 Requesting physician: Jessica Dennis PA-C Reason for consult: abnormal CXR/CT Chief complaint: Syncopes, multiple falls, hyponatremia,hypokalemia Narrative: Had COVID vaccination in June NEW: Emeka Velazco is a 60 yo man with history of oral pharyngeal cancer, COPD, and hypothyroidism admitted 11/05 with multiple falls over 3 days and altered mental status. His mother called 911 because he was confused and not acting right. The patient can provide history but not clearly. After falling he had midback pain. 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 His mother reports that the patient has no difficulty swallowing thin liquids but has difficulty swallowing certain foods. He reports that he has been feeling very thirsty and states that he drinks a lot a water. He had a chest CT showing areas of ground-glass opacities in the right lung, different locations compared to a prior study. The differential diagnosis included cryptogenic organizing pneumonia, acute or chronic infectious process, less likely bronchoalveolar cancer and the radiologist recommended a 6-12 month follow-up CT scan. The patient smokes cigarettes from age 13 until 10 years ago. At most he smoked 2 packs a day. He worked in a [employer] using asbestos gloves. He did this for about for 5 years and this work ended around 1989, so over 30 years ago. He has not been exposed to asbestos in over 30 years. He coughs but not daily. He wheezes when he exerts himself. He does not have a diagnosis of COPD and does not use inhalers. He does not have recurrent infections. He denies sputum production. He does
--- NOTE | 2020-11-07 21:53 | PC.NURSE ---
This patient, Emeka Velazco, was received from [ IMU] on 11/07/20 at 2145. Patient/family oriented to unit policies and routines
--- NOTE | 2020-11-07 22:02 | PC.NURSE ---
This patient, Emeka Velazco, was transferred to [[id number] ] on 11/07/20 at 2202. Personal belongings sent with patient. Report given to [Ramona GLEASON]. Appropriate documentation sent with patient.
[2020-11-07] MEDS: MELATONIN 5 MG TABLET PO (22:36)
[2020-11-07 23:22] LABS: Sodium 122 mmol/L (137-145)
[2020-11-08] VITALS (8 sets, daily range): BP systolic 90–167; BP diastolic 68–90; PULSE 68–93; RESP 14–18; TEMP 36.3–36.9; O2SAT 95–100
[2020-11-08] MEDS: LEVOTHYROXINE SODIUM 37.5 MCG BY MOUTH (06:04)
[2020-11-08 06:49] LABS: Hematocrit 36.1 % (42.0-52.0); Hemoglobin 12.4 g/dL (14.0-18.0); Mean Corpuscular HGB Conc 34.3 g/dl (32-36); Mean Corpuscular Hemoglobin 33.2 pg (26-34); Mean Corpuscular Volume 96.5 fl (80-100); Mean Platelet Volume 9.2 fl (7.4-10.4); Platelet Count Result 282 k/mm3 (150-375); Red Blood Count 3.74 M/mm3 (4.6-6.20); White Blood Count 7.9 K/mm3 (4.5-10.0)
[2020-11-08 07:16] LABS: Albumin Level 4.2 g/dL (3.5-5.1); Carbon Dioxide 27 mmol/L (22-30)
[2020-11-08 07:20] LABS: Anion Gap 11 mmol/L (8-16); Blood Urea Nitrogen 11 mg/dL (9-20); Calcium 9.3 mg/dL (8.4-10.2); Chloride 86 mmol/L (98-107); Estimated CRCL calculation 89 ml/min; Estimated Glomerular Filt Rate > 60; Glucose 107 mg/dL (75-110); Magnesium 1.3 mg/dL (1.6-2.3); Phosphorus 4.1 mg/dL (2.5-4.5); Potassium 3.3 mmol/L (3.4-5.0); Sodium 124 mmol/L (137-145)
[2020-11-08] MEDS: ALBUTEROL SULFATE (*SP) AEROSOL 1 PUFF 2 PUFF INHALATION ×4 (08:00→19:20)
[2020-11-08] MEDS: BUDESONIDE/FORMOTEROL (*SP) 160-4.5 MCG 6 GM INH 2 PUFF INHALATION ×2 (08:00→21:19)
[2020-11-08] MEDS: POTASSIUM CHLORIDE 20 MEQ TABLET 40 MEQ PO (09:18)
[2020-11-08] MEDS: MAGNESIUM SULF 2 GM/WATER 50ML 2 GM/50 ML BAG IVPB (09:18)
[2020-11-08] MEDS: ENOXAPARIN 40 MG/0.4 ML SYRINGE SUB-Q (09:19)
[2020-11-08] MEDS: PANTOPRAZOLE 40 MG TABLET PO (09:19)
[2020-11-08] MEDS: ASPIRIN 81 MG ENTERIC TABLET PO (09:20)
[2020-11-08] MEDS: SODIUM CHLORIDE 0.9% IV 250 ML IV CONT (11:20)
[2020-11-08] MEDS: SODIUM CHLORIDE 0.9% IV 1,000 ML 100 ML IV CONT (13:06)
--- NOTE | 2020-11-08 14:01 | P.PNNP_ITS ---
Progress Note: A&P Assessment and Plan (1) Hyponatremia: Code(s): E87.1 - Hypo-osmolality and hyponatremia Status: Chronic Assessment and Plan: * chronic issues as appears to have been present since at least 2015 * the highest sodium I was able to find was a readings of 132mmol/L in 2018; most of the time it runs 126 - 130mmol/L * related to several issues: - on SSRI - excessive free water intake - possible recurrence of malignancy(?) - less likely based on CT chest/abd/pelvis - lung disease (as noted by CT scan) * TSH noted and levothyroxine adjusted * urine/serum osmolality; SPEP and UPEP pending * urine electrolytes suggest some pre-renal issues (due to poor oral intake presumably) * start free water/fluid restriction (known history of excessive fluid/water intake) * titrate salt tab dosage (2) Hypokalemia: Code(s): E87.6 - Hypokalemia Status: Acute Assessment and Plan: * suspect due to total body store depletion * continue aggressive repletion * follow magnesium (3) Syncope: Qualifiers: Syncope type: unspecified Qualified Code(s): R55 - Syncope and collapse Code(s): R55 - Syncope and collapse Status: Acute Assessment and Plan: * related to #1 and #2(?) * Brain CT with no acute findings, just old strokes * no neurological deficits * telemetry without arrhythmias * continue supportive therapy (4) Multiple falls: Code(s): R29.6 - Repeated falls Status: Acute Assessment and Plan: * as noted by history * PT/OT as tolerated Will continue to follow. Subjective Date/time seen: 11/08/20 14:01 No new issues or problems voiced at this time; electrolytes are slowly improving if not stabilizing with current interventions; no apparent distress to report. Exam Narrative: Exam Narrative: General: WD/WN male in NAD Heart: normal S1 and S2; no rub Lungs: clear to auscultation Abdomen: soft, nontender, nondistended, positive bowel sounds Extremities: no cyanosis or clubbing; no edema Skin: warm and dry Objective Data Vital Signs Vital Signs: Laboratory Tests 11/08/20 06:13 11/08/20 06:13 Intake/Output Intake/Output: Intake & Output 11/05/20 11/06/20 11/07/2016/21 23:59 23:59 23:59 23:59 Intake Total 1750 1900 120 240 Output Total 875 1500 1050 500 Balance [phone] -709 -925 Meds/Results Medications: Active Medications Generic Name Dose Route Start Last Admin Trade Name Freq PRN Reason Stop Dose Admin Albuterol 2 puff 11/08/20 08:00 11/08/20 13:16 Albuterol Sulfate (*Sp) Aerosol 1 Puff INHALATION 2 puff QIDRT AMANDA Administration Aspirin 81 mg 11/05/20 09:00 11/08/20 09:20 Aspirin 81 Mg Enteric Tablet PO 81 mg DAILY AMANDA Administration Budesonide/Formoterol Fumarate 2 puff 11/08/20 08:00 11/08/20 08:00 Budesonide/Formoterol (*Sp) 160-4.5 Mcg 6 Gm Inh INHALATION 2 puff Q12HRT AMANDA Administration Enoxaparin Sodium 40 mg 11/05/20 09:00 11/08/20 09:19 Enoxaparin 40 Mg/0.4 Ml Syringe SUB-Q 40 mg DAILY AMANDA Administration Hydromorphone HCl 0.5 mg 11/05/20 01:22 07
--- NOTE | 2020-11-08 14:01 | PM.PNNEP ---
Progress Note: A&P Assessment and Plan (1) Hyponatremia: Code(s): E87.1 - Hypo-osmolality and hyponatremia Status: Chronic Assessment and Plan: chronic issues as appears to have been present since at least 2016 the highest sodium I was able to find was a readings of 132mmol/L in 2018; most of the time it runs 126 - 130mmol/L related to several issues: - on SSRI - excessive free water intake - possible recurrence of malignancy(?) - less likely based on CT chest/abd/pelvis - lung disease (as noted by CT scan) TSH noted and levothyroxine adjusted urine/serum osmolality; SPEP and UPEP pending urine electrolytes suggest some pre-renal issues (due to poor oral intake presumably) start free water/fluid restriction (known history of excessive fluid/water intake) titrate salt tab dosage (2) Hypokalemia: Code(s): E87.6 - Hypokalemia Status: Acute Assessment and Plan: suspect due to total body store depletion continue aggressive repletion follow magnesium (3) Syncope: Qualifiers: Syncope type: unspecified Qualified Code(s): R55 - Syncope and collapse Code(s): R55 - Syncope and collapse Status: Acute Assessment and Plan: related to #1 and #2(?) Brain CT with no acute findings, just old strokes no neurological deficits telemetry without arrhythmias continue supportive therapy (4) Multiple falls: Code(s): R29.6 - Repeated falls Status: Acute Assessment and Plan: as noted by history PT/OT as tolerated Will continue to follow. Subjective Date/time seen: 11/08/20 14:01 No new issues or problems voiced at this time; electrolytes are slowly improving if not stabilizing with current interventions; no apparent distress to report. Exam Narrative: Exam Narrative: General: WD/WN male in NAD Heart: normal S1 and S2; no rub Lungs: clear to auscultation Abdomen: soft, nontender, nondistended, positive bowel sounds Extremities: no cyanosis or clubbing; no edema Skin: warm and dry Objective Data Vital Signs Vital Signs: Laboratory Tests 11/08/20 06:13 11/08/20 06:13 Intake/Output Intake/Output: Intake & Output 11/05/20 11/06/20 11/07/20 11/08/20 23:59 23:59 23:59 23:59 Intake Total 1750 1900 120 240 Output Total 875 1500 1050 500 Balance [phone] -[phone] Meds/Results Medications: Active Medications Generic Name Dose Route Start Last Admin Trade Name Freq PRN Reason Stop Dose Admin Albuterol 2 puff 11/08/20 08:00 11/08/20 13:16 Albuterol Sulfate (*Sp) Aerosol 1 Puff INHALATION 2 puff QIDRT AMANDA Administration Aspirin 81 mg 11/05/20 09:00 11/08/20 09:20 Aspirin 81 Mg Enteric Tablet PO 81 mg DAILY AMANDA Administration Budesonide/Formoterol Fumarate 2 puff 11/08/20 08:00 11/08/20 08:00 Budesonide/Formoterol (*Sp) 160-4.5 Mcg 6 Gm Inh INHALATION 2 puff Q12HRT AMANDA Administration Enoxaparin Sodium 40 mg 11/05/20 09:00 11/08/20 09:19 Enoxaparin 40 Mg/0.4 Ml Syringe SUB-Q 40 mg DAILY AMANDA Administration Hydromorphone HCl 0.5 mg 11/05/20 01:22 11/06/20 20:09 Hydromorphone Hcl Inj (*Crx) 1 Mg/Ml Syr IV PUSH 0.5 mg Q3H PRN Administration Pain Rated 7-10 Sodium Chloride 1,000 mls @ 100 mls/hr 11/08/20 10:46 11/08/20 13:06 Normal Saline Iv IV CONT 100 mls/hr .Q10H AMANDA Administration Levothyroxine Sodium 12.5 mcg/ 37.5 mcg 11/06/20 06:30 11/08/20 06:04 Levothyroxine Sodium 25 mcg BY MOUTH 37.5 mcg DAILY@0630 AMANDA Administration Melatonin 5 mg 11/07/20 22:30 11/07/20 22:36 Melatonin 5 Mg Tablet PO 5 mg HS AMANDA Administration Metoprolol Tartrate 50 mg 11/05/20 09:00 11/08/20 09:30 Metoprolol Tartrate 50 Mg Tab PO Not Given Q12HR AMANDA Pantoprazole Sodium 40 mg 11/05/20 09:00 11/08/20 09:19 Pantoprazole 40 Mg Tablet PO 40 [facility]
[2020-11-08] MEDS: SODIUM CHLORIDE 500 MG TABLET 1500 MG PO (15:44)
[2020-11-08 16:01] LABS: Sodium Urine Random 49 meq/L
--- NOTE | 2020-11-08 16:38 | PM.IMPN ---
Progress Note: A&P Assessment and Plan (1) Acute hyponatremia: Code(s): E87.1 - Hypo-osmolality and hyponatremia Status: Acute Assessment and Plan: Patient was found to have a sodium of 117 in the ER. Possibly related to excess free water intake and/or hypothyroidism and/or Lexapro. Lexapro has been stopped. TSH high and T4 is normal. Levothyroxine dose increased as this can cause hyponatremia. He remains on NaCl. Last sodium in our records 11/13/19 was 127 so this may be more chronic. Sodium 124 this morning. Continue to monitor. Continue fluid restrictions. Repeat sodium now since receiving the NS. (2) Acute hypokalemia: Code(s): E87.6 - Hypokalemia Status: Acute Assessment and Plan: Potassium was significantly low on admission at 2.4 with a magnesium of 1.4. These were replaced. Today his potassium is 3.3 and mag 1.3. Electrolyte abnormalities likely contributing to his weakness. Replace electrolytes. (3) Syncope: Qualifiers: Syncope type: unspecified Qualified Code(s): R55 - Syncope and collapse Code(s): R55 - Syncope and collapse Status: Acute Assessment and Plan: Triage note states pt had been 'passing out since Wednesday'. CT brain shows old strokes but nothing acute. Pt unaware of old stroke. No neurological deficits and up walking in the halls. No seizure like activity here. Tele without any arrhythmias so this was stopped. Suspect syncope related to dehydration/ electrolyte imbalances/orthostatic HoTN. Fluid bolus given and started on IV fluids. Add Rolando hose. Will monitor for further symptoms. (4) Closed wedge compression fracture of T11 vertebra: Qualifiers: Encounter type: subsequent encounter Fracture healing: with nonunion Qualified Code(s): S22.080K - Wedge compression fracture of T11-T12 vertebra, subsequent encounter for fracture with nonunion Code(s): S22.080A - Wedge compression fracture of T11-T12 vertebra, initial encounter for closed fracture Status: Acute Assessment and Plan: Patient presents with an acute T11 compression fracture and a subacute T12 compression fracture. Case has been discussed with Dr. Bishop. Continue TLSO brace when out of bed. Follow-up with Dr. Bishop. Continue PT and OT. (5) Closed burst fracture of T12 vertebra: Code(s): S22.081A - Stable burst fracture of T11-T12 vertebra, initial encounter for closed fracture Status: Acute Assessment and Plan: As above (6) Right rib fracture: Qualifiers: Encounter type: subsequent encounter Fracture healing: with nonunion Fracture type: closed Rib fracture type: multiple ribs Qualified Code(s): S22.41XK - Multiple fractures of ribs, right side, subsequent encounter for fracture with nonunion Code(s): S22.31XA - Fracture of one rib, right side, initial encounter for closed fracture Status: Acute Assessment and Plan: Due to falls. Continue symptomatic care. (7) Multiple falls: Code(s): R29.6 - Repeated falls Status: Acute Assessment and Plan: Related to his hyponatremia and orthostatic HoTN. Continue PT/OT (8) Abnormal CT scan, lung: Code(s): R91.8 - Other nonspecific abnormal finding of lung field Status: Acute Assessment and Plan: CT showing several small right lung groundglass opacities, different location than the previously seen opacity on prior study. Could be chronic process such as cryptogenic organizing pneumonia, acute or chronic infectious process, less likely bronchoalveolar cell cancer. No signs of active PNA. White count was mildly elevated on admission but did trend to normal. Patient has known exposure risk to asbestos. Recommend 6-12 month follow-up chest CT. Pulmonary consulted and appreciate their input. Medications adjusted. (9) Hypothyroid: Code(s): E03.9 - Hypothyroidism, unspecified
[2020-11-08 17:53] LABS: Sodium 125 mmol/L (137-145)
[2020-11-08] MEDS: METOPROLOL TARTRATE 50 MG TAB PO (21:14)
[2020-11-08] MEDS: MELATONIN 5 MG TABLET PO (21:17)
[2020-11-08 23:16] LABS: Sodium 124 mmol/L (137-145)
[2020-11-09] VITALS (10 sets, daily range): BP systolic 93–158; BP diastolic 65–86; PULSE 73–93; RESP 14–20; TEMP 36.2–36.6; O2SAT 91–100
[2020-11-09] MEDS: LEVOTHYROXINE SODIUM 37.5 MCG BY MOUTH (05:33)
[2020-11-09 06:14] LABS: Kappa\\Lambda Light Chains 1.34 (0.26-1.65); Lambda Light Chain 14.3 mg/L (5.7-26.3)
[2020-11-09 06:58] LABS: Alanine Aminotransferase 19 U/L (4-50); Albumin Level 3.9 g/dL (3.5-5.1); Alkaline Phosphatase 44 U/L (38-126); Anion Gap 7 mmol/L (8-16); Aspartate Amino Transferase 24 U/L (17-59); Bilirubin,Total 0.7 mg/dL (0.2-1.3); Blood Urea Nitrogen 8 mg/dL (9-20); Calcium 8.8 mg/dL (8.4-10.2); Carbon Dioxide 24 mmol/L (22-30); Chloride 95 mmol/L (98-107); Estimated CRCL calculation 105 ml/min; Estimated Glomerular Filt Rate > 60; Glucose 108 mg/dL (65-110); Magnesium 1.3 mg/dL (1.6-2.3); Phosphorus 3.8 mg/dL (2.5-4.5); Potassium 3.6 mmol/L (3.4-5.0); Sodium 126 mmol/L (137-145)
[2020-11-09] MEDS: BUDESONIDE/FORMOTEROL (*SP) 160-4.5 MCG 6 GM INH 2 PUFF INHALATION ×2 (09:33→20:32)
[2020-11-09] MEDS: ALBUTEROL SULFATE (*SP) AEROSOL 1 PUFF 2 PUFF INHALATION ×4 (09:33→20:34)
[2020-11-09] MEDS: SODIUM CHLORIDE 500 MG TABLET 1500 MG PO ×2 (09:50→18:34)
[2020-11-09] MEDS: PANTOPRAZOLE 40 MG TABLET PO (09:50)
[2020-11-09] MEDS: ENOXAPARIN 40 MG/0.4 ML SYRINGE SUB-Q (09:50)
[2020-11-09] MEDS: METOPROLOL TARTRATE 50 MG TAB PO ×2 (09:50→20:46)
[2020-11-09] MEDS: ASPIRIN 81 MG ENTERIC TABLET PO (09:51)
[2020-11-09] MEDS: SODIUM CHLORIDE 0.9% IV 1,000 ML 100 ML IV CONT (09:54)
--- NOTE | 2020-11-09 13:48 | PM.IMPN ---
Progress Note: A&P Assessment and Plan (1) Acute hyponatremia: Code(s): E87.1 - Hypo-osmolality and hyponatremia Status: Acute Assessment and Plan: Patient was found to have a sodium of 117 in the ER At the time of presentation. Possibly related to excess free water intake and/or hypothyroidism and/or Lexapro. Lexapro has been stopped. TSH high and T4 is normal. Levothyroxine dose increased. He remains on NaCl. Last sodium in our records 11/13/19 was 127. It seems that his baseline serum sodium is from 126-130. Sodium 126 this morning. Continue to monitor. Continue fluid restrictions. (2) Acute hypokalemia: Code(s): E87.6 - Hypokalemia Status: Acute Assessment and Plan: Potassium was significantly low on admission at 2.4 with a magnesium of 1.4. These were replaced. Today his potassium is Within acceptable range and mag 1.3. Electrolyte abnormalities likely contributing to his weakness. Replace electrolytes and magnesium will be replaced. Repeat BMP in a.m.. (3) Syncope: Qualifiers: Syncope type: unspecified Qualified Code(s): R55 - Syncope and collapse Code(s): R55 - Syncope and collapse Status: Acute Assessment and Plan: Triage note states pt had been 'passing out since Wednesday'. CT brain shows old strokes but nothing acute. Pt unaware of old stroke. No neurological deficits and up walking in the halls. No seizure like activity here. Tele without any arrhythmias so this was stopped. Suspect syncope related to dehydration/ electrolyte imbalances/orthostatic HoTN. He was given IV fluids.Add Rolando hose. Will monitor for further symptoms. Orthostatic vital will be checked today. (4) Closed wedge compression fracture of T11 vertebra: Qualifiers: Encounter type: subsequent encounter Fracture healing: with nonunion Qualified Code(s): S22.080K - Wedge compression fracture of T11-T12 vertebra, subsequent encounter for fracture with nonunion Code(s): S22.080A - Wedge compression fracture of T11-T12 vertebra, initial encounter for closed fracture Status: Acute Assessment and Plan: Patient presents with an acute T11 compression fracture and a subacute T12 compression fracture. Case has been discussed with Dr. Bishop. Continue TLSO brace when out of bed. He has been refusing to put on brace. Follow-up with Dr. Bishop. Continue PT and OT. I will stop IV pain medicine with Dilaudid. I will put him on Percocet and tramadol for pain control in anticipation of discharge. (5) Closed burst fracture of T12 vertebra: Code(s): S22.081A - Stable burst fracture of T11-T12 vertebra, initial encounter for closed fracture Status: Acute Assessment and Plan: As above (6) Right rib fracture: Qualifiers: Encounter type: subsequent encounter Fracture healing: with nonunion Fracture type: closed Rib fracture type: multiple ribs Qualified Code(s): S22.41XK - Multiple fractures of ribs, right side, subsequent encounter for fracture with nonunion Code(s): S22.31XA - Fracture of one rib, right side, initial encounter for closed fracture Status: Acute Assessment and Plan: Due to falls. Continue symptomatic care. Is complaining of any active pain. (7) Multiple falls: Code(s): R29.6 - Repeated falls Status: Acute Assessment and Plan: Related to his hyponatremia and orthostatic HoTN. Continue PT/OT (8) Abnormal CT scan, lung: Code(s): R91.8 - Other nonspecific abnormal finding of lung field Status: Acute Assessment and Plan: CT showing several small right lung groundglass opacities, different location than the previously seen opacity on prior study. Could be chronic process such as cryptogenic organizing pneumonia, acute or chronic infectious process, less likely bronchoalveolar cell cancer. No signs of active PNA. White count was
--- NOTE | 2020-11-09 13:57 | PM.PNNEP ---
Progress Note: A&P Assessment and Plan (1) Hyponatremia: Code(s): E87.1 - Hypo-osmolality and hyponatremia Status: Chronic Assessment and Plan: chronic issues as appears to have been present since at least 2016 the highest sodium I was able to find was a readings of 132mmol/L in 2018; most of the time it runs 126 - 130mmol/L related to several issues: - on SSRI - excessive free water intake - possible recurrence of malignancy(?) - less likely based on CT chest/abd/pelvis - lung disease (as noted by CT scan) TSH noted and levothyroxine adjusted urine/serum osmolality; SPEP and UPEP pending urine electrolytes suggest some pre-renal issues (due to poor oral intake presumably) start free water/fluid restriction (known history of excessive fluid/water intake) follow trend of sodium level (2) Hypokalemia: Code(s): E87.6 - Hypokalemia Status: Acute Assessment and Plan: suspect due to total body store depletion continue aggressive repletion follow magnesium (3) Syncope: Qualifiers: Syncope type: unspecified Qualified Code(s): R55 - Syncope and collapse Code(s): R55 - Syncope and collapse Status: Acute Assessment and Plan: related to #1 and #2(?) Brain CT with no acute findings, just old strokes no neurological deficits telemetry without arrhythmias continue supportive therapy (4) Multiple falls: Code(s): R29.6 - Repeated falls Status: Acute Assessment and Plan: as noted by history PT/OT as tolerated Not opposed to discharge from renal perspective if otherwise medically stable. Will continue to follow. Subjective Date/time seen: 11/09/20 13:57 Some issues with back pain but otherwise in no apparent distress; sodium level continues to improve; K+ stable but issues with hypomagnesemia noted. Exam Narrative: Exam Narrative: General: WD/WN male in NAD Heart: normal S1 and S2; no rub Lungs: clear to auscultation Abdomen: soft, nontender, nondistended, positive bowel sounds Extremities: no cyanosis or clubbing; no edema Skin: warm and dry Objective Data Vital Signs Vital Signs: Vital Signs Temp Pulse Resp BP Pulse Ox 11/09/20 12:43 36.3 C L 88 20 116/73 100 11/09/20 09:50 76 11/09/20 06:00 36.2 C L 76 18 133/69 98 11/08/20 22:11 92 90/68 L 100 11/08/20 21:57 36.4 C 93 18 167/82 H 100 11/08/20 21:14 68 11/08/20 20:00 36.3 C L 83 18 148/90 H 100 Intake/Output Intake/Output: Intake & Output 11/06/20 11/07/20 11/08/20 11/09/20 23:59 23:59 23:59 23:59 Intake Total 1175 984 2139 720 Output Total 1500 1050 1500 Balance 400 -930 220 720 Meds/Results Medications: Active Medications Generic Name Dose Route Start Last Admin Trade Name Freq PRN Reason Stop Dose Admin Albuterol 2 puff 11/08/20 08:00 11/09/20 12:42 Albuterol Sulfate (*Sp) Aerosol 1 Puff INHALATION 2 puff QIDRT AMANDA Administration Aspirin 81 mg 11/05/20 09:00 11/09/20 09:51 Aspirin 81 Mg Enteric Tablet PO 81 mg DAILY AMANDA Administration Budesonide/Formoterol Fumarate 2 puff 11/08/20 08:00 11/09/20 09:33 Budesonide/Formoterol (*Sp) 160-4.5 Mcg 6 Gm Inh INHALATION 2 puff Q12HRT AMANDA Administration Enoxaparin Sodium 40 mg 11/05/20 09:00 11/09/20 09:50 Enoxaparin 40 Mg/0.4 Ml Syringe SUB-Q 40 mg DAILY AMANDA Administration Levothyroxine Sodium 12.5 mcg/ 37.5 mcg 11/06/20 06:30 11/09/20 05:33 Levothyroxine Sodium 25 mcg BY MOUTH 37.5 mcg DAILY@0630 AMANDA Administration Melatonin 5 mg 11/07/20 22:30 11/08/20 21:17 Melatonin 5 Mg Tablet PO 5 mg HS AMANDA Administration Metoprolol Tartrate 50 mg 11/05/20 09:00 11/09/20 09:50 Metoprolol Tartrate 50 Mg Tab PO 50 mg Q12HR AMANDA Administration Oxycodone/Acetaminophen 1 tablet 11/09/20 13:56 Oxycodone/Acetamino
--- NOTE | 2020-11-09 13:57 | P.PNNP_ITS ---
Progress Note: A&P Assessment and Plan (1) Hyponatremia: Code(s): E87.1 - Hypo-osmolality and hyponatremia Status: Chronic Assessment and Plan: * chronic issues as appears to have been present since at least 2016 * the highest sodium I was able to find was a readings of 132mmol/L in 2018; most of the time it runs 126 - 130mmol/L * related to several issues: - on SSRI - excessive free water intake - possible recurrence of malignancy(?) - less likely based on CT chest/abd/pelvis - lung disease (as noted by CT scan) * TSH noted and levothyroxine adjusted * urine/serum osmolality; SPEP and UPEP pending * urine electrolytes suggest some pre-renal issues (due to poor oral intake presumably) * start free water/fluid restriction (known history of excessive fluid/water intake) * follow trend of sodium level (2) Hypokalemia: Code(s): E87.6 - Hypokalemia Status: Acute Assessment and Plan: * suspect due to total body store depletion * continue aggressive repletion * follow magnesium (3) Syncope: Qualifiers: Syncope type: unspecified Qualified Code(s): R55 - Syncope and collapse Code(s): R55 - Syncope and collapse Status: Acute Assessment and Plan: * related to #1 and #2(?) * Brain CT with no acute findings, just old strokes * no neurological deficits * telemetry without arrhythmias * continue supportive therapy (4) Multiple falls: Code(s): R29.6 - Repeated falls Status: Acute Assessment and Plan: * as noted by history * PT/OT as tolerated Not opposed to discharge from renal perspective if otherwise medically stable. Will continue to follow. Subjective Date/time seen: 11/09/20 13:57 Some issues with back pain but otherwise in no apparent distress; sodium level continues to improve; K+ stable but issues with hypomagnesemia noted. Exam Narrative: Exam Narrative: General: WD/WN male in NAD Heart: normal S1 and S2; no rub Lungs: clear to auscultation Abdomen: soft, nontender, nondistended, positive bowel sounds Extremities: no cyanosis or clubbing; no edema Skin: warm and dry Objective Data Vital Signs Vital Signs: Vital Signs Temp Pulse Resp BP Pulse Ox 11/09/20 12:43 36.3 C L 88 20 116/73 100 11/09/20 09:50 76 11/09/20 06:00 36.2 C L 76 18 133/69 98 11/08/20 22:11 92 90/68 L 100 11/08/20 21:57 36.4 C 93 18 167/82 H 100 11/08/20 21:14 68 11/08/20 20:00 36.3 C L 83 18 148/90 H 100 Intake/Output Intake/Output: Intake & Output 11/06/20 11/07/20 11/08/20 11/09/20 23:59 23:59 23:59 23:59 Intake Total 1879 382 9402 720 Output Total 1500 1050 1500 Balance 400 -930 220 720 Meds/Results Medications: Active Medications Generic Name Dose Route Start Last Admin Trade Name Freq PRN Reason Stop Dose Admin Albuterol 2 puff 11/08/20 08:00 11/09/20 12:42 Albuterol Sulfate (*Sp) Aerosol 1 Puff INHALATION 2 puff QIDRT AMANDA Administration Aspirin 81 mg 11/05/20 09:00 11/09/20 09:51 Aspirin 81 Mg Enteric Tablet PO 81 mg DAILY AMANDA Administration Budesonide/Formoterol Fumarate 2 puff
[2020-11-09] MEDS: MAGNESIUM SULF 4 GM/WATER100ML 4 GM/100 ML BAG IVPB (14:23)
[2020-11-09] MEDS: MELATONIN 5 MG TABLET PO (20:46)
[2020-11-09 22:34] LABS: Osmolality, Urine 367 mOsm/kg (50-1200)
[2020-11-10 04:53] LABS: Albumin 3.7 g/dL (3.8-4.8); Alpha 1 Globulin 0.4 g/dL (0.2-0.3); Alpha 2 Globulin 0.8 g/dL (0.5-0.9); Beta 1 Globulin 0.4 g/dL (0.4-0.6); Protein, Total 6.5 g/dL (6.1-8.1)
[2020-11-10 06:00] VITALS: BP 118/72; PULSE 88; RESP 18; TEMP 36.6; O2SAT 100
[2020-11-10] MEDS: LEVOTHYROXINE SODIUM 37.5 MCG BY MOUTH (06:18)
[2020-11-10 07:17] LABS: Albumin Level 3.8 g/dL (3.5-5.1); Anion Gap 9 mmol/L (8-16); Blood Urea Nitrogen 6 mg/dL (9-20); Calcium 9.1 mg/dL (8.4-10.2); Carbon Dioxide 26 mmol/L (22-30); Chloride 92 mmol/L (98-107); Estimated CRCL calculation 104 ml/min; Estimated Glomerular Filt Rate > 60; Glucose 102 mg/dL (65-110); Magnesium 1.6 mg/dL (1.6-2.3); Phosphorus 3.9 mg/dL (2.5-4.5); Sodium 127 mmol/L (137-145)
[2020-11-10] MEDS: BUDESONIDE/FORMOTEROL (*SP) 160-4.5 MCG 6 GM INH 2 PUFF INHALATION (08:04)
[2020-11-10] MEDS: ALBUTEROL SULFATE (*SP) AEROSOL 1 PUFF 2 PUFF INHALATION ×3 (08:05→14:45)
[2020-11-10] MEDS: ENOXAPARIN 40 MG/0.4 ML SYRINGE SUB-Q (08:55)
[2020-11-10] MEDS: SODIUM CHLORIDE 500 MG TABLET 1500 MG PO (08:55)
[2020-11-10 08:56] VITALS: PULSE 88
[2020-11-10] MEDS: METOPROLOL TARTRATE 50 MG TAB PO (08:56)
[2020-11-10] MEDS: PANTOPRAZOLE 40 MG TABLET PO (08:56)
[2020-11-10] MEDS: ASPIRIN 81 MG ENTERIC TABLET PO (08:57)
[2020-11-10 12:04] VITALS: PULSE 84; RESP 14
[2020-11-10] MEDS: POTASSIUM CHLORIDE 20 MEQ TABLET 40 MEQ PO ×2 (12:22→15:01)
--- NOTE | 2020-11-10 12:55 | PM.DS ---
DS: Admitting Diagnosis Admitting Diagnosis Admitting Diagnosis: Acute symptomatic hyponatremia hypokalemia syncope compression fraction of T11 and closed burst fracture of T12 chronic rib fracture multiple falls DS: Discharge Diagnosis Discharge Diagnosis (1) Acute hyponatremia: Code(s): E87.1 - Hypo-osmolality and hyponatremia Status: Acute Assessment and Plan: Patient was found to have a sodium of 117 in the ER At the time of presentation. Possibly related to excess free water intake and/or hypothyroidism and/or Lexapro. Lexapro has been stopped. TSH high and T4 is normal. Levothyroxine dose increased. He remains on NaCl. Last sodium in our records 11/13/19 was 127. It seems that his baseline serum sodium is from 126-130. Sodium 127 this morning. Continue fluid restrictions. He was encouraged to take 5285-4120 cc of fluid on the daily Basis. He will need to have a BMP checked at some point by his primary care physician in 1-2 weeks. (2) Acute hypokalemia: Code(s): E87.6 - Hypokalemia Status: Acute Assessment and Plan: Potassium was significantly low on admission at 2.4 with a magnesium of 1.4. These were replaced. Electrolyte abnormalities likely contributing to his weakness. Today potassium was 3.0. He was given 40 mEq of potassium p.o. and will be given another dose of 40 mEq of potassium p.o. before discharge. He was encouraged to take care of his nutrition and take potassium food. (3) Syncope: Qualifiers: Syncope type: unspecified Qualified Code(s): R55 - Syncope and collapse Code(s): R55 - Syncope and collapse Status: Acute Assessment and Plan: Triage note states pt had been 'passing out since Wednesday'. CT brain shows old strokes but nothing acute. Pt unaware of old stroke. No neurological deficits and up walking in the halls. No seizure like activity here. Tele without any arrhythmias so this was stopped. Suspect syncope related to dehydration/ electrolyte imbalances/orthostatic HoTN. He was given IV fluids. Add Rolando hose. Will monitor for further symptoms. Orthostatic vitals checked yesterday were negative. (4) Closed wedge compression fracture of T11 vertebra: Qualifiers: Encounter type: subsequent encounter Fracture healing: with nonunion Qualified Code(s): S22.080K - Wedge compression fracture of T11-T12 vertebra, subsequent encounter for fracture with nonunion Code(s): S22.080A - Wedge compression fracture of T11-T12 vertebra, initial encounter for closed fracture Status: Acute Assessment and Plan: Patient presents with an acute T11 compression fracture and a subacute T12 compression fracture. Case has been discussed with Dr. Bishop. Continue TLSO brace when out of bed. He has been refusing to put on brace. Follow-up with Dr. Bishop. Continue PT and OT. He was on Dilaudid for pain control initially which was switched to p.o. pain control with Percocet and tramadol. He will continue his tramadol after discharge for pain control. (5) Closed burst fracture of T12 vertebra: Code(s): S22.081A - Stable burst fracture of T11-T12 vertebra, initial encounter for closed fracture Status: Acute Assessment and Plan: As above (6) Right rib fracture: Qualifiers: Encounter type: subsequent encounter Fracture healing: with nonunion Fracture type: closed Rib fracture type: multiple ribs Qualified Code(s): S22.41XK - Multiple fractures of ribs, right side, subsequent encounter for fracture with nonunion Code(s): S22.31XA - Fracture of one rib, right side, initial encounter for closed fracture Status: Acute Assessment and Plan: Due to falls. Continue symptomatic care. Is Not complaining of any active pain. (7) Multiple falls: Code(s): R29.6 - Repeated falls Status: Acute Assessment and Plan: Related t
[2020-11-10 13:47] LABS: Chloride Rand Ur 79 mmol/L (32-290); Chloride/Creatinine Rand Ur 103 (23-275); Creatinine Random Urine 77 mg/dL (20-320)
[2020-11-10 13:56] VITALS: BP 159/99; PULSE 81; RESP 14; TEMP 36.5; O2SAT 90
--- NOTE | 2020-11-10 16:06 | PCPTNOTE ---
Attempted therapy session, Upon entering room Pt was dressed and ready for D/C, ADOPTION WORKER came in a few moments later with W/C to take Pt down to his ride.
--- NOTE | 2020-11-11 13:27 | PC.NURSE ---
SPEP- No M spike. Dr. Avilez aware.
[2020-11-11 21:38] LABS: Creatinine, Random Urine 77 mg/dL (20-320); Total Protein/Creatinine Ratio 455 mg/g creat (22-128)
== END 2020-11-10 16:10 | disposition home health service (06) | DRG 641 ==
LOC: ANHED 17:57 → ANHIMU 11-05 00:42 → ANH3MEDSUR 11-08 13:03
PROVIDERS: Emergency Medicine; Internal Medicine; Internal Medicine Nephrology; Admitting Provider Internal Medicine; Emergency Provider Emergency Medicine; PCP Family Medicine; Visit Provider Physician Assistant
DX: E87.1 Hypo-osmolality and hyponatremia (principal); S22.081A Stable burst fracture of T11-T12 vertebra, initial encounter for closed fracture; S22.080K Wedge compression fracture of T11-T12 vertebra, subsequent encounter for fracture with nonunion; S22.41XK Multiple fractures of ribs, right side, subsequent encounter for fracture with nonunion; I95.1 Orthostatic hypotension; E87.6 Hypokalemia; E83.42 Hypomagnesemia; R29.6 Repeated falls; J43.9 Emphysema, unspecified; R91.8 Other nonspecific abnormal finding of lung field; E03.9 Hypothyroidism, unspecified; E78.00 Pure hypercholesterolemia, unspecified; Z66 Do not resuscitate; Z79.82 Long term (current) use of aspirin; Z79.899 Other long term (current) drug therapy; Z85.818 Personal history of malignant neoplasm of other sites of lip, oral cavity, and pharynx; Z86.73 Personal history of transient ischemic attack (TIA), and cerebral infarction without residual deficits; Z87.891 Personal history of nicotine dependence
CPT/HCPCS: 36415; 51701; 70450; 71046; 71260; 72072; 72100; 74177; 80048; 80053; 80069; 81001; 81050; 82436; 82533; 82570; 82948; 83605; 83735; 83883; 83930; 83935; 84100; 84133; 84155; 84156; 84165; 84166; 84295; 84300; 84439; 84443; 84480; 85025; 85027; 85610; 85730; 85999; 86140; 87040; 93005; 94640; 96361; 96365; 96366; 96375; 96376; 97116; 97161; 97530; 99285; A9270; J0456; J0696; J1170; J1650; J2060; J2405; J3010; J3475; J3480; J7030; J7050; J7070; Q9967

== ENCOUNTER → 2020-12-26 14:00 | Outpatient (CLI) | payer MEDICARE, SELFPAY ==
--- NOTE | ~2020-12-26 | XR_ITS ---
EXAMINATION: XR finger 4th RT min 2V DATE: 12/26/2020 14:26 INDICATION: Right hand fourth digit pain. TECHNIQUE: 5 views of right hand fourth digit were obtained. COMPARISON: None. FINDINGS: There is flexion of the fourth and fifth proximal interphalangeal joints on all views. No f racture. Joint spaces are normal. IMPRESSION: 1. No fracture. Reviewed, dictated and finalized at location A. IMPRESSION: 1. No fracture.
== END ==
PROVIDERS: PCP Family Medicine; Visit Provider Family Medicine
DX: M79.646 Pain in unspecified finger(s) (principal)
CPT/HCPCS: 73140

== ENCOUNTER 2022-01-08 07:12 | Outpatient (CLI) | payer MEDICARE, SELFPAY ==
--- NOTE | ~2022-01-08 | CT_ITS ---
EXAMINATION: CT soft tissue neck w con DATE: 01/08/2022 07:52 INDICATION: Throat cancer. TECHNIQUE: Computed tomography (CT) of the neck was performed with 75 mL Omnipaque-350 intravenous co ntrast. Automated exposure control and iterative reconstruction technique were employed. The dose-shaunna gth product was 652.50 mGy-cm. COMPARISON: Neck CT 04/08/2017 FINDINGS: There is mild emphysema. There is mild scarring at the lung apices. There is mucous in the trachea and right mainstem bronchus. There is plaque in proximal right internal carotid artery with 4 2% stenosis relative to normal distal artery lumen diameter. There is severe stenosis of distal left common carotid artery. There is 0% stenosis of proximal left internal carotid artery relative to norm al distal artery lumen diameter. There are surgical clips in the submandibular region. There are no p athologically enlarged lymph nodes. There is fat stranding in the neck, consistent with changes of rebolledo rgery and radiation. There is mild mucosal thickening in the maxillary sinuses. There are multiple ca rious lesions in the teeth. There are periapical lucencies around many of the teeth. There is moderat e cervical spondylosis. IMPRESSION: 1. No specific evidence of malignancy. 2. Severe stenosis of distal left common carotid artery. Reviewed, dictated and finalized at location A.
[2022-01-08 07:41] LABS: Estimated Glomerular Filt Rate > 60
== END 2022-01-08 07:13 | disposition home or self-care (01) ==
LOC: ANHIMG 07:14
PROVIDERS: PCP Family Medicine; Visit Provider Family Medicine
DX: R68.84 Jaw pain (principal); I65.22 Occlusion and stenosis of left carotid artery; Z85.819 Personal history of malignant neoplasm of unspecified site of lip, oral cavity, and pharynx
CPT/HCPCS: 70491; Q9967

== ENCOUNTER 2023-05-27 01:08 | Day surgery (SDC) | payer MEDICARE, SELFPAY ==
[2023-04-29 11:11] VITALS: BMI 23.8
--- NOTE | 2023-05-25 08:56 | SUR.PREOP ---
Patient called regarding upcoming procedure. Spoke with spouse. Reviewed preop instructions, appointment times, and procedure prep.
--- NOTE | 2023-05-26 15:55 | PM.HPGS ---
History of Present Illness History of Present Illness Consent: Risks, benefits, and alternatives have been discussed and questions answered. Patient agrees to proceed with procedure. Chief complaint: family hx colon ca Narrative: Emeka Velazco is a 62 year old male Referred for colon cancer screening. Her last colonoscopy was 5 years ago. His mother had colon cancer. 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 Godwin Rubin code status: DNR/DNI surrogate decision maker: Mother Smoking packs per day: 3 Smoking cigarettes per day: 60.0 Years smoked: 30 Smoking pack-years: 90.00 Smoking status: Former smoker Tobacco type: cigarettes Second hand tobacco smoke exposure: No Smoking end date: 04/26/07 Alcohol intake: current Drinks per week: 4 Alcohol use details: He used to drink up to 6 drinks per week but has not done so many years. Substance use: never Substance use type: does not use Living arrangements: with family Additional living arrangements comments: He lives with his mother. 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 Gender identity (if verbalized by the patient): Male Sexual Orientation (if Verbalized by the Patient): Straight or Heterosexual Spiritual care concerns: No Meds Home Medications and Allergies Home Medications Medication Instructions Recorded Confirmed Type aspirin 81 mg tablet,delayed 81 mg PO DAILY 05/15/19 04/29/23 History release pantoprazole 40 mg tablet,delayed 40 mg PO QAM #90 tabs 08/07/23 01/04/24 Rx release (Protonix) escitalopram oxalate 10 mg tablet 10 mg PO DAILY 04/29/23 04/29/23 History levothyroxine 25 mcg tablet 25 mcg PO DAILY 04/29/23 04/29/23 History metoprolol tartrate 50 mg tablet 50 mg PO DAILY 04/29/23 04/29/23 History multivitamin 1 tablet PO DAILY 04/29/23 04/29/23 History Allergies Allergy/AdvReac Type Severity Reaction Status Date / Time morphine AdvReac Unknown Nausea and Verified 05/27/23 09:04 Vomiting Exam Const: General: alert Orientation/consciousness: patient oriented x3 Resp: Auscultation: clear to auscultation bilaterally Cardio: Rhythm: regular rhythm GI: GI Palp: Yes Soft to palpation and No Tenderness to palpation present (GI) Neuro: General: patient oriented x3 Assessment and Plan Assessment and plan (1) Family history of colon cancer: Code(s): Z80.0 - Family history of malignant neoplasm of digestive organs Status: Acute Assessment and Plan: Colonoscopy with possible biopsy or polypectomy or cautery or injection of substances.
[2023-05-27 09:06] VITALS: BP 122/80; PULSE 70; RESP 18; TEMP 35.5; O2SAT 100
[2023-05-27] MEDS: LACTATED RINGERS 1,000 ML 150 ML IV CONT (09:20)
--- NOTE | 2023-05-27 09:21 | SUR.PREOP ---
DR SILVA AND DR ABEL MADE AWARE PT HAS BEEN SIPPING WATER THROUGHOUT THE NIGHT AND THIS MORNING UNTIL 0830. NEW ORDERS RECEIVED TO HOLD PT PROCEDURE UNTIL AFTER NEXT PT. DR SILVA SEEING PT.
--- NOTE | 2023-05-27 09:24 | WPDANESEPPF ---
Anes - Initial Pre Proc Eval Procedure: Operation Date: 05/27/23 10:00 Proposed Procedures p Colonoscopy - Aaron Stringer MD Date/Time: 05/27/23 09:24 Surgeon: Aaron Stringer MD Pre Op Diagnosis: family hx colon ca Patient Data Age: 62 Gender: M Height: 1.85 m Weight: 76.6 kg Last Vital Signs Temp 35.5 C L 05/27/23 09:06 Pulse 70 05/27/23 09:06 Resp 18 05/27/23 09:06 BP 122/80 05/27/23 09:06 Pulse Ox 100 05/27/23 09:06 O2 Del Method Room Air 05/27/23 09:06 Allergies Allergy/AdvReac Type Severity Reaction Status Date / Time morphine AdvReac Unknown Nausea and Verified 05/27/23 09:04 Vomiting Home Medications Medication Instructions Recorded Confirmed Type aspirin 81 mg tablet,delayed 81 mg PO DAILY 05/15/19 04/29/23 History release pantoprazole 40 mg tablet,delayed 40 mg PO QAM #90 tabs 11/30/22 04/29/23 Rx release (Protonix) escitalopram oxalate 10 mg tablet 10 mg PO DAILY 04/29/23 04/29/23 History levothyroxine 25 mcg tablet 25 mcg PO DAILY 04/29/23 04/29/23 History metoprolol tartrate 50 mg tablet 50 mg PO DAILY 04/29/23 04/29/23 History multivitamin 1 tablet PO DAILY 04/29/23 04/29/23 History Patient hx anesthesia problems: none Family hx anesthesia problems: none Results Review: All pre-operative results and documents have been reviewed as part of the pre-operative evaluation. 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 Godwin Rubin code status: DNR/DNI surrogate decision maker: Mother Smoking packs per day: 3 Smoking cigarettes per day: 60.0 Years smoked: 30 Smoking pack-years: 90.00 Smoking status: Former smoker Tobacco type: cigarettes Second hand tobacco smoke exposure: No Smoking end date: 04/26/07 Alcohol intake: current Drinks per week: 4 Alcohol use details: He used to drink up to 6 drinks per week but has not done so many years. Substance use: never Substance use type: does not use Living arrangements: with family Additional living arrangements comments: He lives with his mother. 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 Gender identity (if verbalized by the patient): Male Sexual Orientation (if Verbalized by the Patient): Straight or Heterosexual Spiritual care concerns: No Anes - Eval Final PreProcedure Day of Procedure 05/27/23 09:24 Patient weight: normal Heart: regular rate and rhythm Lungs: decreased breath sounds Airway: Mallampati scale class III Neurological: alert and oriented Last oral intake: >/= 8 hours ASA classification: III Emergent: no Anesthetic plan: proceed Anesthesia type and monitoring: general GIVS and standard monitoring Results Review: All pre-operative results and documents have been reviewed as part of the pre-operative evaluation. Informed Consent: The patient's anesthetic plan and its attendant risks and benefits were discussed with the patient/family/POA. Questions were solicited and answers provided to the satisfaction of the patient/family/POA.
[2023-05-27 11:01] VITALS: BP 93/64; PULSE 61; RESP 25; O2SAT 95
[2023-05-27 11:11] VITALS: BP 142/79; PULSE 59; RESP 22; O2SAT 100
[2023-05-27 11:21] VITALS: BP 143/78; PULSE 67; RESP 18; O2SAT 100
== END 2023-05-27 11:45 | disposition home or self-care (01) ==
PROVIDERS: PCP Family Medicine; Visit Provider Internal Medicine Gastroenterology
PROC: 0DJD8ZZ Inspection of Lower Intestinal Tract, Via Natural or Artificial Opening Endoscopic (ICD-10-PCS; CPT 45378; principal; 2023-05-27 10:00)
DX: Z12.11 Encounter for screening for malignant neoplasm of colon (principal); K64.8 Other hemorrhoids; E03.9 Hypothyroidism, unspecified; E78.00 Pure hypercholesterolemia, unspecified; Z79.82 Long term (current) use of aspirin; Z98.890 Other specified postprocedural states; Z87.891 Personal history of nicotine dependence; Z85.818 Personal history of malignant neoplasm of other sites of lip, oral cavity, and pharynx; Z80.0 Family history of malignant neoplasm of digestive organs; Z80.8 Family history of malignant neoplasm of other organs or systems
CPT/HCPCS: G0105; J2001; J2704; J7120

== ENCOUNTER 2024-12-05 19:08 | Inpatient (IN) | payer MEDICARE, SELFPAY ==
[2024-12-05] VITALS (8 sets, daily range): BP systolic 102–147; BP diastolic 53–100; PULSE 92–111; RESP 18–24; TEMP 35.4–37.6; O2SAT 93–100
--- NOTE | ~2024-12-05 | XR_ITS ---
HISTORY: arm pain COMPARISON: None TECHNIQUE: 2 views of the left elbow were performed FINDINGS: No acute fracture is identified. No elevation of the anterior or posterior fat pads are identified to suggest a supracondylar fracture . Overlying soft tissues are unremarkable. Periarticular osteopenia suggesting osteoarthritis. IMPRESSION: Degenerative disease, without acute fracture. Reviewed, dictated and finalized at location A.
--- NOTE | ~2024-12-05 | CT_ITS ---
History: Acute confusion and hyponatremia PROCEDURE: CT head without contrast. COMPARISON: 11/04/2020 TECHNIQUE: Axial imaging of the head performed from the skull base to the vertex without IV contrast. Sagittal a nd coronal reformations obtained. Examination is somewhat by motion artifact DLP: 681 mGy-cm FINDINGS: The ventricles are unremarkable in size, shape and position. There is no mass, mass effect or midline shift. There is no abnormal extra-axial fluid collection or intracranial hemorrhage. Visualized paranasal sinuses are clear. The mastoid air cells are well aerated. No acute displaced fractures within the overlying cranium. Impression: No acute intracranial hemorrhage or suspicious mass effect. Reviewed, dictated and finalized at location A. Impression: No acute intracranial hemorrhage or suspicious mass effect.
--- OUTSIDE RECORDS SUMMARY | 2024-12-05 19:10 | XMS_ITS | Clinical Summary ---
Author Organization [facility] Address [address] [place] [address] Care Team Providers Care Victim Witness Administrator Name Role Phone Godwin Rubin MD Primary Care Provider [phone] Source Comments [facility],non-owned Affiliates and Associated Physician Practices is amultiple site organization consisting of ambulatory clinics and hospital sitesin [place], [place], [place] and [place]. This disclosure is being madepursuant to the Care Everywhere program and may not contain all information available regarding this patient. 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 Gender Identity Not on file Sexual Orientation Not on file Plan of Treatment Health Maintenance Due Date Last Done Comments COLOGUARD (AGES 45-75) - COL ON CA SCREENING 1960 COLON MONITORING 1960 COLONOSCOPY - COLON CA SCREENING 1960 CT COLONOGRAPHY - COLON CA SCREENING 1960 Colorectal Cancer Screening 1960 FIT - COLON CA SCREENING 1960 FLEX SIG - COLON CA SCREENING 1960 LIPID TESTING 1960 HIV SCREENING 07/22/1975 HEPATITIS C SCREENING 07/17/1978 DTAP/TDAP/TD VACCINES (1 - Tdap) 07/22/1979 PNEUMOCOCCAL VACCINE 50+ (1 of 1 - PCV) 2010 ZOSTER VACCINE (1 of 2) 2010 COVID-19 VACCINE (1 - 2023-2 5 season) 2023 DEPRESSION SCREENING 04/26/2024 INFLUENZA VACCINE (#1) 2024 Respiratory Syncytial Virus (RSV) Vaccine Pt: or over 60 yrs (1 - 1-dose 75+ series) 07/22/2035 HEPATITIS B VACCINE Aged Out No longe r eligible based on patient's age to complete this topic HIB VACCINE Aged Out No longer eligi ble based on patient's age to complete this topic HPV VACCINE Aged Out No longer eligi ble based on patient's age to complete this topic MENINGOCOCCAL (Group B) VACC INE SHARED DECISION-MAKING Aged Out No longer eligibl e based on patient's age to complete this topic MENINGOCOCCAL GROUPS A/C/Y/W VACCINE Aged Out No longer eligible b ased on patient's age to complete this topic Care Teams Victim Witness Administrator Relationship Specialty Start Date End Date Godwin Rubin MD [address] [place] [address] PCP - General 10/29/15
--- OUTSIDE RECORDS SUMMARY | 2024-12-05 19:10 | XMS_ITS | Clinical Summary ---
Author Organization [facility] Address [address] [place] [id number] Care Team Providers Care Bulk System Operator Name Role Phone Unavailable Primary Care Provider Unavailabl e Social History Tobacco Use Types Packs/Day Years Used Date Smoking Tobacco: Never Assessed Sex and Gender Information Value Date Recorded Sex Assigned at Not on file Legal Sex Male 6:27 PM CDT Gender Identity Not on file Sexual Orientation Not on file Plan of Treatment Health Maintenance Due Date Last Done Comments Colorectal Cancer Screening Colonoscopy (10 Years) 1960 Annual Physical 07/22/1963 Hepatitis C 1978 DTaP, Tdap and Td Vaccines ( 1 - Tdap) 07/22/1979 Pneumococcal Vaccine: 50+ Ye ars (1 of 1 - PCV) 2010 Zoster Vaccines (1 of 2) 2010 COVID-19 Vaccine ( - 2023-2 5 season) 2023 RSV Immunization or 60+ Years (1 - 1-dose 75+ series) 07/22/2035 Meningococcal B Vaccine Aged Out No l onger eligible based on patient's age to complete this topic Meningococcal Vaccine Aged Out No roseline uzair eligible based on patient's age to complete this topic RSV Immunizations Under 20 Months Aged Out No longer eligible based on patient's age to complete this topic
--- NOTE | 2024-12-05 19:23 | PC.NURSE ---
Rns attempted oral temperature twice, two axillary temperatures, and one temporal. Pt is too diaphoretic for temporal to read. Both oral and axillary both read cool temperatures. RNs attempting rectal temp at this time for accurate reading.
[2024-12-05 19:29] LABS: Hematocrit 49.6 % (42.0-52.0); Hemoglobin 17.7 g/dL (14.0-18.0); Immature Granulocyte Percent A 0.9 % (0-0.5); Lymphocytes Absolute Auto 0.41 K/mm3 (0.9-3.2); Mean Corpuscular HGB Conc 35.7 g/dl (32-36); Mean Corpuscular Hemoglobin 33.0 pg (26-34); Mean Corpuscular Volume 92.5 fl (80-100); Nucleated Red Blood Cells Absolute Auto 0.000 K/mm3 (0.0-0.012); Nucleated Red Blood Cells Perc 0.0 % (0.0-0.2); Platelet Count Result 332 k/mm3 (150-375); Red Blood Count 5.36 M/mm3 (4.6-6.20); White Blood Count 13.8 K/mm3 (4.5-10.0)
[2024-12-05 19:44] LABS: Alanine Aminotransferase 29 U/L (6-50); Albumin Level 5.1 g/dL (3.5-5.1); Alkaline Phosphatase 65 U/L (38-126); Anion Gap 17 mmol/L (4-12); Aspartate Amino Transferase 46 U/L (17-59); Bilirubin,Total 2.2 mg/dL (0.2-1.3); Blood Urea Nitrogen 14 mg/dL (9-20); Calcium 9.8 mg/dL (8.4-10.2); Carbon Dioxide 23 mmol/L (22-30); Chloride 79 mmol/L (98-107); Estimated CRCL calculation 58 ml/min; Estimated Glomerular Filt Rate > 60; Glucose 162 mg/dL (65-110); Lipase 40 U/L (23-300); Potassium 3.5 mmol/L (3.4-5.0); Sodium 119 mmol/L (137-145); Total Protein 8.6 g/dL (6.3-8.2)
--- NOTE | 2024-12-05 20:20 | PC.NURSE ---
Pt. self removed IV. Gauze place on site.
[2024-12-05 20:46] LABS: Acetaminophen < 10 ug/mL (10-30)
[2024-12-05 20:54] LABS: Magnesium 1.5 mg/dL (1.6-2.3)
--- NOTE | 2024-12-05 22:17 | ED_ITS ---
HPI - Nausea/Vomiting/Diarrhea General Chief complaint: Nausea/Vomiting/Diarrhea Stated complaint: n/v x24hrs, R arm injury Time Seen by Provider: 12/05/24 21:58 History of Present Illness HPI Narrative: 64-year-old male with a past medical history including hypothyroidism, throat cancer status post radiation therapy, polydipsia, alcohol abuse, episodes of acute and chronic hyponatremia. Patient presents to the emergency department today with confusion, nausea vomiting for 24 hours in complaints of arm pain. Patient is a terrible historian but states that he had no apparent injuries aside from potentially pulling a muscle in his left arm as complaining of significant amounts of pain in his left shoulder and elbow. States that he injured it while he was trying to reach for 2 L bottle in his car. States he took pain medications at home including Tylenol and ibuprofen. His family knows that he is severely confused, not acting himself and drinking tons of water which is not unusual for him. Ever since his throat cancer he has been having dry mouth chronically and drink significant amounts of water all the time leading to episodes of hyponatremia dating back to 2013. Patient also endorses a pt of whiskey per day drinking. No history of alcohol withdrawals. Patient is in distress, breathing heavily and dramatic in triage requesting water. He is not any respiratory distress and awake and answering questions. Family states these symptoms today and resemble the last time he had acute hyponatremia requiring hospitalization. He has been seen here several times for this and seen by our Nephrology team for this here as well. Related Data Home Medications ?Medication ?Instructions ?Recorded ?Confirmed ?Last Taken ?Type aspirin 81 mg tablet,delayed 81 mg PO DAILY 05/15/19 12/06/24 12/04/24 History release metoprolol tartrate 50 mg tablet 50 mg PO DAILY 04/29/23 12/06/24 12/04/24 History multivitamin 1 tablet PO DAILY 04/29/23 12/06/24 12/04/24 History Allergies Allergy/AdvReac Type Severity Reaction Status Date / Time morphine AdvReac Unknown Nausea and Verified 01/12/24 14:20 Vomiting Review of Systems 2 Review of Systems: As reviewed above in HPI All systems reviewed & are unremarkable except as noted in HPI and below PMFSH Past Medical History Medical History (Updated 12/06/24 @ 06:18 by Arvind Degroot MD) Alcohol abuse Malignant neoplasm overlapping lip, oral cavity and pharynx sites Acquired hypothyroidism Autonomic instability Pure hypercholesterolemia Surgical History Surgical History History of oral surgery (~2010) 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 Godwin Rubin code status: DNR/DNI surrogate decision maker: Mother Smoking packs per day: 3 Smoking cigarettes per day: 60.0 Years smoked: 30 Smoking pack-years: 90.00 Smoking status: Former smoker Tobacco type: cigarettes Second hand tobacco smoke exposure: No Smoking end date: 04/26/07 Alcohol intake: current Drinks per week: 4 Alcohol use details: He used to drink up to 6 drinks per week but has not done so many years. Substance use: current Substance use type: marijuana Other substance usage details: drinks one pint nightly Last use: Wednesday Lack of Transportation: YES Lack of Food: Never True Current Housing: I Have Housing Concerned About Future Housing: No Difficulty Paying Gas/Electric Bills: No Difficulty Paying for Meds: No Currently Unemployed: No Education: High School Diploma/GED Difficulty w/ Childcare or Family Care: No Living arrangements: with family Additional living arrangements comments: He lives with his mother. 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 Gender identity (if verbalized by the patient): Male Sexual Orientation (if Verbalized by the Patient): Straight or Heterosexual Spiritual care concerns: No Exam 2 Narrative: GENERAL: Tachypneic and dramatic in his mannerism and during examination, flopping around the bed HEAD: [Normocephalic, atraumatic.] EYES: [PERRLA and EOMI.] ENT: Nares clear, no rhinorrhea or epistaxis. Mucous membranes dry. NECK: Supple. CHEST: [Clear to auscultation. No respiratory distress.] HEART: [Regular rate and rhythm]. No murmur heard. [Normal peripheral pulses.] ABDOMEN: [Soft, nondistended], [nontender], [No rigidity or guarding] EXTREMITIES: Normal range of motion. [No edema.] No appreciable step-offs deformities in the extremity. Full range of motion of the upper extremity both at the shoulder elbow and at the wrist. No roustabout crew leader strength deficits and able to oppose each digit. SKIN: Warm, dry, no rash. NEURO: No lateralizing deficits. Alert but confused, moving all extremities, no obvious sensory motor deficits. No facial asymmetry or slurring speech. Course Vital Signs Vital signs: Vital Signs Pulse Rate 110 H 12/05/24 19:12 Respiratory Rate 18 12/05/24 19:12 Blood Pressure 126/100 H 12/05/24 19:12 Pulse Oximetry 95 12/05/24 19:12 Oxygen Delivery Room Air 12/05/24 19:12 Temperature 36.4 C 12/06/24 04:00 Pulse Rate 91 12/06/24 04:00 Respiratory Rate 28 H 12/06/24 04:00 Blood Pressure 143/75 H 12/06/24 04:00 Pulse Oximetry 90 12/06/24 04:00 Oxygen Delivery Room Air 12/06/24 04:00 MDM - Nausea/Vomiting/Diarrhea MDM Narrative Medical decision making narrative: 64-year-old male with a past medical history including hypothyroidism, throat cancer status post radiation therapy, polydipsia, alcohol abuse, episodes of acute and chronic hyponatremia. Patient presents to the emergency department today with confusion, nausea vomiting for 24 hours in complaints of arm pain. Patient is a terrible historian but states that he had no apparent injuries aside from potentially pulling a muscle in his left arm as complaining of significant amounts of pain in his left shoulder and elbow. States that he injured it while he was trying to reach for 2 L bottle in his car. States he took pain medications at home including Tylenol and ibuprofen. His family knows that he is severely confused, not acting himself and drinking tons of water which is not unusual for him. Ever since his throat cancer he has been having dry mouth chronically and drink significant amounts of water all the time leading to episodes of hyponatremia dating back to 2013. Patient also endorses a pt of whiskey per day drinking. No history of alcohol withdrawals. Patient is in distress, breathing heavily and dramatic in triage requesting water. He is not any respiratory distress and awake and answering questions. Family states these symptoms today and resemble the last time he had acute hyponatremia requiring hospitalization. He has been seen here several times for this and seen by our Nephrology team for this here as well. Patient is not in any acute physical or respiratory distress but is tachypneic and asking for water. He is tachycardic, normal blood pressure, afebrile, saturating well on room air. Has no lateralizing deficits on neurological examination but is confused and complaining of nauseousness with multiple episodes of vomiting per family. He endorses significant amounts of alcohol intake daily as well as significant amounts of water intake with previous episodes of acute and chronic hyponatremia with similar presentations. No apparent injuries on examination of the extremity but x-rays were obtained to rule out any occult injuries. Suspect primary polydipsia, medication side effects, alcoholism as the source of his acute hyponatremia with a sodium 119 obtained in triage. Several hours of water restriction before patient was triaged to an examination room and repeat sodium obtained as well as urinary tests. CT of the head and other additional laboratory studies to evaluate other causes of acute confusion such as dehydration, kidney injury, liver injury, intracranial pathology, or infection such as urinary tract infection. Patient has not had any vomiting here but is retching and nauseous. Will discuss with Nephrology for hypertonic initiation based on sodium levels. Repeat sodium after 3 hours water restriction without any acute changes. At this time given his severe symptoms he was given 150 cc bolus dose of hypertonic saline and after discussion with Nephrology Dr. Acevedo we will initiate 75 cc of normal saline per hour with Q 4 sodium checks. I discussed the case with the ICU Dr. Hair who accepted the patient to the intensive care unit this time. Discussed with the hospitalist mid-level provider also accepted the patient to the hospital at this time. Remaining workup unremarkable. CT of the head without any acute concerning findings and workup otherwise just shows some slight leukocytosis from significant dehydration with hemoconcentration. Repeat electrolytes came up to 122 in line with appropriate level and rise. Urine studies pending. Patient admitted to the hospital and went upstairs without any further issue. Medical Records Attestation: I reviewed the patient's medical records. Lab Data Attestation: I reviewed the patient's lab results. 12/05/24 19:22 12/06/24 01:33 Labs: Lab Results 12/05/24 12/05/24 12/05/24 Range/Units 19:22 22:14 22:52 WBC 13.8 H (4.5-10.0) K/mm3 RBC 5.36 (4.6-6.20) M/mm3 Hgb 17.7 D (14.0-18.0) g/dL Hct 49.6 (42.0-52.0) % MCV 92.5 (80-100) fl MCH 33.0 (26-34) pg MCHC 35.7 (32-36) g/dl RDW 12.1 (11.5-14.5) % Plt Count 332 (150-375) k/mm3 MPV 8.6 (7.4-10.4) fl Immature Gran % (Auto) 0.9 H (0-0.5) % Neut % (Auto) 89.1 H (45.5-73.1) % Lymph % (Auto) 3.0 L (18.3-44.2) % Marshall % (Auto) 6.6 (2.6-8.5) % Eos % (Auto) 0.1 (0-4.4) % Baso % (Auto) 0.3 (0.2-1.2) % Lymph # (Auto) 0.41 L (0.9-3.2) K/mm3 Marshall # (Auto) 0.9 H (0.1-0.6) K/mm3 Eos # (Auto) 0.0 (0-0.3) K/mm3 Baso # (Auto) 0.0 (0.0-0.1) K/mm3 Abs Immat Gran (auto) 0.12 H (0.00-0.031) K/mm3 Absolute Neuts (auto) 12.3 H (1.3-6.7) K/mm3 Absolute Nucleated RBC 0.000 (0.0-0.012) K/mm3 Nucleated RBC % 0.0 (0.0-0.2) % Sodium 119 L* 119 L* (137-145) mmol/L Potassium 3.5 (3.4-5.0) mmol/L Chloride 79 L (98-107) mmol/L Carbon Dioxide 23 (22-30) mmol/L Anion Gap 17 H (4-12) mmol/L BUN 14 D (9-20) mg/dL Creatinine 0.99 (0.7-1.3) mg/dL Estim Creat Clear Calc 58 ml/min Estimated GFR > 60 (59 - ) Glucose 162 H (65-110) mg/dL Serum Osmolality Pending Calcium 9.8 (8.4-10.2) mg/dL Magnesium 1.5 L (1.6-2.3) mg/dL Total Bilirubin 2.2 H (0.2-1.3) mg/dL AST 46 (17-59) U/L ALT 29 (6-50) U/L Alkaline Phosphatase 65 (38-126) U/L Total Protein 8.6 H (6.3-8.2) g/dL Albumin 5.1 (3.5-5.1) g/dL Lipase 40 (23-300) U/L TSH (Reflex) 3.990 (0.465-4.68) uIU/mL Urine Color Yellow (Yellow) Urine Appearance Clear (Clear) Urine pH 7.0 (5.0-9.0) Ur Specific [place] 1.013 (1.001-1.035) Urine Protein Trace (Negative) mg/dL Urine Glucose (UA) Negative (Negative) mg/dL Urine Ketones 2+ H (Negative) mg/dL Ur Blood (Man) Negative (Negative) Urine Nitrate Negative (Negative) Urine Bilirubin Negative (Negative) Urine Urobilinogen 0.2 (<2.0) mg/dL Leukocyte Esterase Rfl Negative (Negative) RIN/UL Urine RBC 3-5 H (0-2) /hpf Urine WBC 0-5 (0-3) /hpf Ur Squamous Epith Cells None seen (Few) /hpf Urine Bacteria None seen /hpf Urine Casts 0-2 Urine Osmolality Pending Ur Random Creatinine Pending Ur Random Sodium 24 meq/L Urine Creatinine 109.2 mg/dL Urine Chloride Pending Nasal MRSA (PCR) (NOT DETECTE) Urine Opiates Screen Negative (Negative) Urine Methadone Screen Negative (Negative) Acetaminophen < 10 L (10-30) ug/mL Ur Barbiturates Screen Negative (Negative) Ur Phencyclidine Scrn Negative (Negative) Ur Amphetamine Screen Negative (Negative) U Benzodiazepines Scrn Negative (Negative) Urine Cocaine Screen Negative (Negative) U Cannabinoids Screen Positive A (Negative) Ethyl Alcohol < 10 (<10) mg/dL 12/06/24 Range/Units 00:17 WBC (4.5-10.0) K/mm3 RBC (4.6-6.20) M/mm3 Hgb (14.0-18.0) g/dL Hct (42.0-52.0) % MCV (80-100) fl MCH (26-34) pg MCHC (32-36) g/dl RDW (11.5-14.5) % Plt Count (150-375) k/mm3 MPV (7.4-10.4) fl Immature Gran % (Auto) (0-0.5) % Neut % (Auto) (45.5-73.1) % Lymph % (Auto) (18.3-44.2) % Marshall % (Auto) (2.6-8.5) % Eos % (Auto) (0-4.4) % Baso % (Auto) (0.2-1.2) % Lymph # (Auto) (0.9-3.2) K/mm3 Marshall # (Auto) (0.1-0.6) K/mm3 Eos # (Auto) (0-0.3) K/mm3 Baso # (Auto) (0.0-0.1) K/mm3 Abs Immat Gran (auto) (0.00-0.031) K/mm3 Absolute Neuts (auto) (1.3-6.7) K/mm3 Absolute Nucleated RBC (0.0-0.012) K/mm3 Nucleated RBC % (0.0-0.2) % Sodium (137-145) mmol/L Potassium (3.4-5.0) mmol/L Chloride (98-107) mmol/L Carbon Dioxide (22-30) mmol/L Anion Gap (4-12) mmol/L BUN (9-20) mg/dL Creatinine (0.7-1.3) mg/dL Estim Creat Clear Calc ml/min Estimated GFR (59 - ) Glucose (65-110) mg/dL Serum Osmolality Calcium (8.4-10.2) mg/dL Magnesium (1.6-2.3) mg/dL Total Bilirubin (0.2-1.3) mg/dL AST (17-59) U/L ALT (6-50) U/L Alkaline Phosphatase (38-126) U/L Total Protein (6.3-8.2) g/dL Albumin (3.5-5.1) g/dL Lipase (23-300) U/L TSH (Reflex) (0.465-4.68) uIU/mL Urine Color (Yellow) Urine Appearance (Clear) Urine pH (5.0-9.0) Ur Specific [place] (1.001-1.035) Urine Protein (Negative) mg/dL Urine Glucose (UA) (Negative) mg/dL Urine Ketones (Negative) mg/dL Ur Blood (Man) (Negative) Urine Nitrate (Negative) Urine Bilirubin (Negative) Urine Urobilinogen (<2.0) mg/dL Leukocyte Esterase Rfl (Negative) RIN/UL Urine RBC (0-2) /hpf Urine WBC (0-3) /hpf Ur Squamous Epith Cells (Few) /hpf Urine Bacteria /hpf Urine Casts Urine Osmolality Ur Random Creatinine Ur Random Sodium meq/L Urine Creatinine mg/dL Urine Chloride Nasal MRSA (PCR) Not detected (NOT DETECTE) Urine Opiates Screen (Negative) Urine Methadone Screen (Negative) Acetaminophen (10-30) ug/mL Ur Barbiturates Screen (Negative) Ur Phencyclidine Scrn (Negative) Ur Amphetamine Screen (Negative) U Benzodiazepines Scrn (Negative) Urine Cocaine Screen (Negative) U Cannabinoids Screen (Negative) Ethyl Alcohol (<10) mg/dL Imaging Data Attestation: I personally reviewed and interpreted this imaging study as follows: My impression: Impressions Head CT 12/05/24 23:23 Impression: No acute intracranial hemorrhage or suspicious mass effect. Elbow X-Ray 12/05/24 23:45 IMPRESSION: Degenerative disease, without acute fracture. Critical Care Time Critical Care Time Critical Care Time: Yes Total Critical Care Time: 75 Discharge Plan Discharge Clinical Impression: Acute hyponatremia, Alcohol abuse, Acute confusion, Primary polydipsia, Nausea & vomiting, Elbow pain Patient Disposition: Still a Patient Condition: Guarded Prognosis Time of Disposition: 00:00
[2024-12-05] MEDS: LORazepam INJ (*CRX) 2 MG/ML VIAL 1 MG IV PUSH (22:19)
[2024-12-05] MEDS: ONDANSETRON INJ 4 MG/2 ML VIAL IV PUSH (22:20)
--- OUTSIDE RECORDS SUMMARY | 2024-12-05 22:26 | XMS_ITS | Clinical Summary ---
Author Organization [facility] Address [address] [place] [id number] Care Team Providers Care Boat Engines Installer Name Role Phone Unavailable Primary Care Provider [...]
--- OUTSIDE RECORDS SUMMARY | 2024-12-05 22:26 | XMS_ITS | Clinical Summary ---
Author Organization [facility] Address [address] [place] [address] Care Team Providers Care Director Of Compliance Name Role Phone Godwin Rubin MD Primary Care Provider [phone] Source Comments [facility] [employer],non-owned Affiliates and Associated Physician Practices is amultiple site organization consisting of ambulatory clinics and hospital sitesin [place], [place], [place] and [place]. This disclosure is being madepursuant to the Care Everywhere program and may not contain all information available regarding this patient. Last updated 18.[facility] [employer] Social History Tobacco Use Types Packs/Day Years Used Date Smoking Tobacco: Never Assessed Sex and Gender Information Value Date Recorded Sex Assigned at Not on file Legal Sex Male 6:24 PM MUCK [employer] Gender Identity Not on file Sexual Orientation [...] age to complete this topic Care Teams Director Of Compliance Relationship Specialty Start Date End Date Godwin Rubin MD [address] [place] [address] PCP - General 10/29/15
[2024-12-05 22:40] LABS: Sodium 119 mmol/L (137-145)
[2024-12-05 23:03] LABS: Add Urine Microscopic? YES; Appearance Urine Clear (Clear); Glucose Urine UA Negative (Negative); Leukocyte Esterase Ur Negative LEU/UL (Negative); Nitrate Urine Negative (Negative); Non Pathogenic Casts 0-2; Specific Grav Ur 1.013 (1.001-1.035)
[2024-12-05] MEDS: SODIUM CHLORIDE 3% 150 ML 450 ML IV CONT (23:13)
[2024-12-05 23:21] LABS: Cannabinoid Screen Urine Positive (Negative)
[2024-12-05 23:21] LABS: Thyroid Stimulating Hormone Reflex 3.990 uIU/mL (0.465-4.68)
[2024-12-06] VITALS (14 sets, daily range): BP systolic 106–174; BP diastolic 61–92; PULSE 62–106; RESP 11–28; TEMP 36.4–36.7; O2SAT 90–100; BMI 21.0
[2024-12-06] MEDS: SODIUM CHLORIDE 0.9% IV 1,000 ML 75 ML IV CONT (00:07)
[2024-12-06 01:33] LABS: MRSA (PCR) NOT DETECTED (NOT DETECTE)
--- NOTE | 2024-12-06 01:43 | ADMGEN ---
This patient, Emeka Velazco, was admitted to Intensive Care Unit-8. Patient/family oriented to hospital policies and general routines including ID bracelet, bed and alarms, visiting hours, pain management, procedures, bathroom and other care routines, personal items, smoking policy, room service/diet, and visiting hours. Information on how to activate the Rapid Response Team has been discussed. Patient/Family are encouraged to report perceived risks to care and to ask questions if they do not understand what they are told or what they should do.
[2024-12-06 02:08] LABS: Anion Gap 11 mmol/L (4-12); Blood Urea Nitrogen 16 mg/dL (9-20); Calcium 9.2 mg/dL (8.4-10.2); Carbon Dioxide 26 mmol/L (22-30); Chloride 85 mmol/L (98-107); Estimated CRCL calculation 56 ml/min; Estimated Glomerular Filt Rate > 60; Glucose 124 mg/dL (65-110); Potassium 3.0 mmol/L (3.4-5.0); Sodium 122 mmol/L (137-145)
--- NOTE | 2024-12-06 02:50 | P.HP_ITS ---
H&P: HPI History of Present Illness Date/Time: 12/06/24 02:50 Chief Complaint: altered mental status, symptomatic hyponatremia Narrative: 64-year-old male with a past medical history including hypothyroidism, throat cancer status post radiation therapy, polydipsia, alcohol abuse, episodes of acute and chronic hyponatremia. Patient also complained of left arm pain. His family notes that he is severely confused, not acting himself and drinking tons of water which is not unusual for him. Ever since his throat cancer he has been having dry mouth chronically and drink significant amounts of water all the time leading to episodes of hyponatremia dating back to 2013. Patient also endorses a pt of whiskey per day drinking. No history of alcohol withdrawals. Family states these symptoms today and resemble the last time he had acute hyponatremia requiring hospitalization. He has been seen here several times for this and seen by our Nephrology team for this here as well. Workup in ER shows initial sodium level 119 with verification draw confirming 119. He received 3% saline 150 mL over 20 minutes. Potassium was 3.5 but not replaced. Magnesium 1.5 and not replaced. Glucose 162. WBC elevated at 13.8, patient afebrile. Repeat Metabolic panel shows sodium up to 122 and potassium down to 3.0. Ordered potassium and magnesium infusions on arrival to the ICU. Hyponatremia felt to be multifactorial including primary polydypsia/water intoxication, alcohol abuse and possibly side effect of medication as well as physiologic stress on the body. Urine labs and osmolalities collected. Patient NPO for now. Nephrology consulted and ICU consulted. Patient is getting IV potassium so next lab draw will be around 0700. 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 Godwin Rubin code status: DNR/DNI surrogate decision maker: Mother Smoking packs per day: 3 Smoking cigarettes per day: 60.0 Years smoked: 30 Smoking pack-years: 90.00 Smoking status: Former smoker Tobacco type: cigarettes Second hand tobacco smoke exposure: No Smoking end date: 04/26/07 Alcohol intake: current Drinks per week: 4 Alcohol use details: He used to drink up to 6 drinks per week but has not done so many years. Substance use: current Substance use type: marijuana Other substance usage details: drinks one pint nightly Last use: Wednesday Lack of Transportation: YES Lack of Food: Never True Current Housing: I Have Housing Concerned About Future Housing: No Difficulty Paying Gas/Electric Bills: No Difficulty Paying for Meds: No Currently Unemployed: No Education: High School Diploma/GED Difficulty w/ Childcare or Family Care: No Living arrangements: with family Additional living arrangements comments: He lives with his mother. 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 Gender identity (if verbalized by the patient): Male Sexual Orientation (if Verbalized by the Patient): Straight or Heterosexual Spiritual care concerns: No Meds Home Medications and Allergies Home Medications ?Medication ?Instructions ?Recorded ?Confirmed ?Type aspirin 81 mg tablet,delayed 81 mg PO DAILY 05/15/19 12/06/24 History release metoprolol tartrate 50 mg tablet 50 mg PO DAILY 04/29/23 12/06/24 History multivitamin 1 tablet PO DAILY 04/29/23 12/06/24 History escitalopram oxalate 10 mg tablet 10 mg PO DAILY #90 tabs 06/25/24 12/06/24 Rx levothyroxine 75 mcg tablet See Rx Instructions .Route 08/11/24 12/06/24 Rx .COMPLEX #90 tabs pantoprazole 40 mg tablet,delayed 40 mg PO QAM #90 tabs 10/31/24 12/06/24 Rx release (Protonix) Allergies Allergy/AdvReac Type Severity Reaction Status Date / Time morphine AdvReac Unknown Nausea and Verified 01/12/24 14:20 Vomiting Vital Signs Vital Signs - 24 hr 12/05/24 19:12 12/05/24 19:30 12/05/24 20:29 Temperature 37.6 C 35.4 C L Pulse Rate 110 H 111 H Respiratory Rate 18 Blood Pressure 126/100 H 147/53 H Pulse Oximetry 95 96 Oxygen Delivery Room Air 12/05/24 21:37 12/05/24 22:00 12/05/24 22:06 Temperature Pulse Rate 105 H 102 H 111 H Respiratory Rate 20 24 H 22 H Blood Pressure 118/68 104/74 104/74 Pulse Oximetry 100 98 93 Oxygen Delivery Room Air 12/05/24 23:00 12/05/24 23:30 12/06/24 00:00 Temperature Pulse Rate 92 92 88 Respiratory Rate 19 23 H 15 Blood Pressure 102/69 112/69 135/80 Pulse Oximetry 100 98 95 Oxygen Delivery 12/06/24 00:30 12/06/24 01:00 12/06/24 01:47 Temperature Pulse Rate 84 90 106 H Respiratory Rate 21 H 18 Blood Pressure 124/76 139/81 Pulse Oximetry 95 95 Oxygen Delivery 12/06/24 01:55 12/06/24 02:29 Temperature 36.6 C Pulse Rate 103 H Respiratory Rate 20 Blood Pressure 174/92 H Pulse Oximetry 100 Oxygen Delivery Room Air Exam Narrative: GENERAL: Well-appearing, well-nourished, and in no acute distress. HEAD: Normocephalic, atraumatic. ENT:? Mucous membranes moist. CHEST: Clear to auscultation.? No respiratory distress. HEART: Regular rate and rhythm. ? Normal peripheral pulses. ABDOMEN: Soft, nontender, nondistended. EXTREMITIES: Normal range of motion. No peripheral edema. SKIN: Warm dry normal color NEURO: Alert and oriented x3. PSYCH: Normal mood and affect H&P: Results Labs Labs: Short CBC 12/05/24 Range/Units 19:22 WBC 13.8 H (4.5-10.0) K/mm3 Hgb 17.7 D (14.0-18.0) g/dL Hct 49.6 (42.0-52.0) % Plt Count 332 (150-375) k/mm3 [facility] 12/05/24 12/05/24 12/06/24 19:22 22:14 01:33 Sodium 119 L* 119 L* 122 L Potassium 3.5 3.0 L Chloride 79 L 85 L Carbon Dioxide 23 26 BUN 14 D 16 Creatinine 0.99 1.03 Glucose 162 H 124 H Calcium 9.8 9.2 Liver Function 12/05/24 Range/Units 19:22 Total Bilirubin 2.2 H (0.2-1.3) mg/dL AST 46 (17-59) U/L ALT 29 (6-50) U/L Alkaline Phosphatase 65 (38-126) U/L Albumin 5.1 (3.5-5.1) g/dL Urine 12/05/24 Range/Units 22:52 Urine Color Yellow (Yellow) Urine Appearance Clear (Clear) Urine pH 7.0 (5.0-9.0) Ur Specific [place] 1.013 (1.001-1.035) Urine Protein Trace (Negative) mg/dL Urine Glucose (UA) Negative (Negative) mg/dL Pulse Oximetry SpO2 results: 95-100% on room air Attestation: I personally reviewed and interpreted this pulse oximetry as follows: Interpretation: No need for supplemental oxygenation at this time Imaging CT scan - head: Radiologist's impression: History: Acute confusion and hyponatremia PROCEDURE: CT head without contrast. COMPARISON: 11/04/2020 TECHNIQUE: Axial imaging of the head performed from the skull base to the vertex without IV contrast. Sagittal and coronal reformations obtained. Examination is somewhat by motion artifact DLP: 681 mGy-cm FINDINGS: The ventricles are unremarkable in size, shape and position. There is no mass, mass effect or midline shift. There is no abnormal extra-axial fluid collection or intracranial hemorrhage. Visualized paranasal sinuses are clear. The mastoid air cells are well aerated. No acute displaced fractures within the overlying cranium. Impression: No acute intracranial hemorrhage or suspicious mass effect. Reviewed, dictated and finalized at location A. Left elbow x-ray: Radiologist's impression: HISTORY: arm pain COMPARISON: None TECHNIQUE: 2 views of the left elbow were performed FINDINGS: No acute fracture is identified. No elevation of the anterior or posterior fat pads are identified to suggest a supracondylar fracture. Overlying soft tissues are unremarkable. Periarticular osteopenia suggesting osteoarthritis. IMPRESSION: Degenerative disease, without acute fracture. Reviewed, dictated and finalized at location A. Assessment and Plan Assessment and plan (1) Hyponatremia: Code(s): E87.1 - Hypo-osmolality and hyponatremia Status: Acute Assessment and Plan: -Acute exacerbation of chronic hyponatremia, symptomatic with LOC changes -Sodium 119 on arrival -Sodium 122 after 150 mL 3% saline bolus in ER -NS at 75 mL/hr per Nephrology who was consulted by ER -Hold NS while getting Potassium IV infusion then resume -Q4H metabolic panels -Dry mouth s/p facial surgery leads to excessive free water intake (2) Hypokalemia: Code(s): E87.6 - Hypokalemia Status: Acute Assessment and Plan: -Potassium 3.0, ordered 40 mEq oral and 40 mEq IV -Added magnesium to labs expecting it will be low as well (3) Acquired hypothyroidism: Code(s): E03.9 - Hypothyroidism, unspecified Status: Chronic Assessment and Plan: -TSH normal, continue levothyroxine, change to IV at half the dose if patient unable to take oral medication. (4) COPD (chronic obstructive pulmonary disease): Code(s): J44.9 - Chronic obstructive pulmonary disease, unspecified Status: Chronic (5) History of tobacco abuse: Code(s): Z87.891 - Personal history of nicotine dependence Status: Acute Assessment and Plan: -Nicotine patch ordered (6) History of oral surgery: Onset Date: ~2010 Code(s): Z98.890 - Other specified postprocedural states Status: Acute Assessment and Plan: -Facial surgery in 2010 due to head and neck cancer -Dry mouth with primary polydipsia and continued alcohol use daily (7) Alcohol abuse: Code(s): F10.10 - Alcohol abuse, uncomplicated Status: Acute Assessment and Plan: -Drinks a pint of whiskey daily -Contributor to chronic hyponatremia Quality VTE Prophylaxis VTE prophylaxis: pharmacologic ordered Hospitalist MIPS Advance Care Plan I have confirmed that the patient's Advanced Care Plan is present, code status is documented, or surrogate decision maker is listed in patient medical record.: Yes Medication Reconciliation I have utilized all available resources to obtain, update and review the patients current medications (includes all prescriptions, OTC, herbals, cannabis, and nutritional supplements).: Yes
[2024-12-06] MEDS: POTASSIUM CHLORIDE 20 MEQ ER TABLET 40 MEQ PO (03:14)
[2024-12-06] MEDS: POTASSIUM CHLORIDE INJ 40 MEQ in SODIUM CHLORIDE 0.9% IV 500 ML 130 MEQ IVPB (03:17)
[2024-12-06] MEDS: MAGNESIUM SULFATE 3GM/D5W100ML 3 GM/100 ML BAG IVPB (03:29)
[2024-12-06] MEDS: ACETAMINOPHEN 325 MG TABLET 650 MG PO ×2 (03:29→11:50)
[2024-12-06] MEDS: LEVOTHYROXINE SODIUM 75 MCG TABLET PO (05:25)
[2024-12-06 08:00] LABS: Hematocrit 46.7 % (42.0-52.0); Hemoglobin 16.3 g/dL (14.0-18.0); Immature Granulocyte Percent A 2.8 % (0-0.5); Lymphocytes Absolute Auto 0.96 K/mm3 (0.9-3.2); Mean Corpuscular HGB Conc 34.9 g/dl (32-36); Mean Corpuscular Hemoglobin 33.1 pg (26-34); Mean Corpuscular Volume 94.7 fl (80-100); Nucleated Red Blood Cells Absolute Auto 0.000 K/mm3 (0.0-0.012); Nucleated Red Blood Cells Perc 0.0 % (0.0-0.2); Platelet Count Result 301 k/mm3 (150-375); Red Blood Count 4.93 M/mm3 (4.6-6.20); White Blood Count 14.9 K/mm3 (4.5-10.0)
[2024-12-06 08:11] LABS: Alanine Aminotransferase 15 U/L (6-50); Albumin Level 4.1 g/dL (3.5-5.1); Alkaline Phosphatase 54 U/L (38-126); Anion Gap 9 mmol/L (4-12); Aspartate Amino Transferase 39 U/L (17-59); Bilirubin,Total 1.3 mg/dL (0.2-1.3); Blood Urea Nitrogen 14 mg/dL (9-20); Calcium 8.8 mg/dL (8.4-10.2); Carbon Dioxide 24 mmol/L (22-30); Chloride 91 mmol/L (98-107); Estimated CRCL calculation 75 ml/min; Estimated Glomerular Filt Rate > 60; Glucose 106 mg/dL (65-110); Magnesium 2.8 mg/dL (1.6-2.3); Potassium 3.5 mmol/L (3.4-5.0); Sodium 124 mmol/L (137-145); Total Protein 6.9 g/dL (6.3-8.2)
[2024-12-06] MEDS: ASPIRIN 81 MG ENTERIC TABLET PO (08:26)
[2024-12-06] MEDS: MULTIVITAMINS THERAPEUTIC TAB (*BKC) 1 TABLET PO (08:26)
[2024-12-06] MEDS: PANTOPRAZOLE 40 MG TABLET PO (08:26)
[2024-12-06] MEDS: METOPROLOL TARTRATE 50 MG TAB PO ×2 (08:26→21:54)
--- NOTE | 2024-12-06 09:47 | P.CONIN_ITS ---
Assessment and Plan Assessment and plan (1) Acute hyponatremia: Code(s): E87.1 - Hypo-osmolality and hyponatremia Status: Acute Assessment and Plan: Presented with acute to infusion, altered mental status. Polydypsia, sodium levels of 119 -patient was given IV fluids in the ED -started on normal saline at 75 mL/hour per with Nephrology -sodium levels this morning 124 -mentation is improved significantly -appreciate Nephrology following the patient -continue BMPs (2) Acute confusion: Code(s): R41.0 - Disorientation, unspecified Status: Acute Assessment and Plan: Patient presented with altered mental status, acute confusion, polydipsia. According the family these were similar symptoms when he had an episode of acute hypokalemia the last time he was admitted to the hospital [facility]. -12/06: This morning patient is awake, alert, oriented, sodium levels have improved (3) Alcohol abuse: Code(s): F10.10 - Alcohol abuse, uncomplicated Status: Acute Assessment and Plan: Patient drinks 1 pint of whiskey daily, -CIWA protocol has been ordered -Librium 25 mg p.o. q.6 hours schedule -thiamine and folic acid (4) COPD (chronic obstructive pulmonary disease): Code(s): J44.9 - Chronic obstructive pulmonary disease, unspecified Status: Chronic Assessment and Plan: History of COPD, will add p.r.n. bronchodilators (5) Hypothyroid: Code(s): E03.9 - Hypothyroidism, unspecified Status: Acute Assessment and Plan: Continue levothyroxine (6) Hypertension: Code(s): I10 - Essential (primary) hypertension Status: Acute Assessment and Plan: Continue metoprolol Plan DVT prophylaxis: Lovenox Stress ulcer prophylaxis: Not indicated Nutrition: Regular diet Code Status: Full code Critical Care Time Spent: 46 minutes Due to a high probability of clinically significant, life threatening deterioration, the patient required my highest level of preparedness to intervene emergently and I personally spent this critical care time directly and personally managing the patient. This critical care time included obtaining a history; examining the patient; pulse oximetry; ordering and review of studies; arranging urgent treatment with development of a management plan; evaluation of patient's response to treatment; frequent reassessment; and discussions with other providers. It was exclusive of separately billable procedures and treating other patients and teaching time. Please see Assessment and Plan section and the rest of the note for further information on patient assessment and treatment This dictation may have been done utilizing a voice recognition system. Attempts have been made to correct errors. However, there may be uncorrected grammatical, spelling, and recognitions errors present. 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 patient also complained of right arm injury will try and reach out from bottle and scar. Patient to Tylenol and ibuprofen for his right elbow injury. Patient has been drinking a lot of water due to having dry mouth chronically and also has a history of drinking a pint of whiskey per day. His family noted that he was severely confused, not acting himself and drinking a lot of water which is not usual for him. These symptoms according the family resemble the last time he was here at [facility] hyponatremia. Patient was not noted to be any acute physical respiratory distress in the ER. Hemodynamically was stable, O2 sats were good on room air. In the ER patient's WBC count was 13.8, hemoglobin 17.7, platelets 332. Sodium 119, potassium 3.0, chloride 85, CO2 26, BUN 16, creatinine 1.03, blood sugars 124, LFTs are within normal limits. UA was unremarkable. Urine drug screen was positive for cannabinoids, alcohol levels < 10, acetaminophen < 10. CT brain with no acute intracranial hemorrhage or suspicious mass effect Right elbow x-ray degenerative disease without acute fracture Patient was transferred to the ICU for further management, nephrology was consulted Patient seen and examined this morning in the ICU, is awake, alert, oriented, nonfocal, follows simple commands and answers to questions appropriately. Denies any chest pain, shortness of breath, abdominal pain, nausea, vomiting. Hemodynamically stable, afebrile, adequate urine output. 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 Godwin Rubin code status: DNR/DNI surrogate decision maker: Mother Smoking packs per day: 3 Smoking cigarettes per day: 60.0 Years smoked: 30 Smoking pack-years: 90.00 Smoking status: Former smoker Tobacco type: cigarettes Second hand tobacco smoke exposure: No Smoking end date: 04/26/07 Alcohol intake: current Drinks per week: 4 Alcohol use details: He used to drink up to 6 drinks per week but has not done so many years. Substance use: current Substance use type: marijuana Other substance usage details: drinks one pint nightly Last use: Wednesday Lack of Transportation: YES Lack of Food: Never True Current Housing: I Have Housing Concerned About Future Housing: No Difficulty Paying Gas/Electric Bills: No Difficulty Paying for Meds: No Currently Unemployed: No Education: High School Diploma/GED Difficulty w/ Childcare or Family Care: No Living arrangements: with family Additional living arrangements comments: He lives with his mother. 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 Gender identity (if verbalized by the patient): Male Sexual Orientation (if Verbalized by the Patient): Straight or Heterosexual Spiritual care concerns: No Meds Home Medications and Allergies Home Medications ?Medication ?Instructions ?Recorded ?Confirmed ?Type aspirin 81 mg tablet,delayed 81 mg PO DAILY 05/15/19 12/06/24 History release metoprolol tartrate 50 mg tablet 50 mg PO DAILY 04/29/23 12/06/24 History multivitamin 1 tablet PO DAILY 04/29/23 12/06/24 History escitalopram oxalate 10 mg tablet 10 mg PO DAILY #90 tabs 06/25/24 12/06/24 Rx levothyroxine 75 mcg tablet See Rx Instructions .Route 08/11/24 12/06/24 Rx .COMPLEX #90 tabs pantoprazole 40 mg tablet,delayed 40 mg PO QAM #90 tabs 10/31/24 12/06/24 Rx release (Protonix) Allergies Allergy/AdvReac Type Severity Reaction Status Date / Time morphine AdvReac Unknown Nausea and Verified 01/12/24 14:20 Vomiting Vital Signs Vital Signs - 24 hr 12/05/24 19:12 12/05/24 19:30 12/05/24 20:29 Temperature 99.6 F 95.7 F L Pulse Rate 110 H 111 H Respiratory Rate 18 Blood Pressure 126/100 H 147/53 H Pulse Oximetry 95 96 Oxygen Delivery Room Air 12/05/24 21:37 12/05/24 22:00 12/05/24 22:06 Temperature Pulse Rate 105 H 102 H 111 H Respiratory Rate 20 24 H 22 H Blood Pressure 118/68 104/74 104/74 Pulse Oximetry 100 98 93 Oxygen Delivery Room Air 12/05/24 23:00 12/05/24 23:30 12/06/24 00:00 Temperature Pulse Rate 92 92 88 Respiratory Rate 19 23 H 15 Blood Pressure 102/69 112/69 135/80 Pulse Oximetry 100 98 95 Oxygen Delivery 12/06/24 00:30 12/06/24 01:00 12/06/24 01:47 Temperature Pulse Rate 84 90 106 H Respiratory Rate 21 H 18 Blood Pressure 124/76 139/81 Pulse Oximetry 95 95 Oxygen Delivery 12/06/24 01:55 12/06/24 02:29 12/06/24 04:00 Temperature 97.9 F Pulse Rate 103 H 91 Respiratory Rate 20 Blood Pressure 174/92 H Pulse Oximetry 100 Oxygen Delivery Room Air 12/06/24 04:00 12/06/24 04:00 12/06/24 06:00 Temperature 97.6 F Pulse Rate 91 92 Respiratory Rate 28 H 19 Blood Pressure 143/75 H 106/61 Pulse Oximetry 90 95 Oxygen Delivery Room Air 12/06/24 06:00 12/06/24 08:00 12/06/24 08:00 Temperature 98.1 F Pulse Rate 85 86 Respiratory Rate 26 H Blood Pressure 127/69 Pulse Oximetry 92 Oxygen Delivery Room Air 12/06/24 08:00 Temperature Pulse Rate 85 Respiratory Rate Blood Pressure Pulse Oximetry Oxygen Delivery Exam 2 Narrative: General: Pleasant gentleman in no acute distress HEENT:? Pupils equal and reactive, sclera is clear, moist oral mucosa Neck:? Supple Respiratory:? Clear to auscultation bilaterally, no wheezing, adequate air entry Cardiac:? S1-S2 normal, regular rate and rhythm Abdomen:? Soft, nontender, nondistended, normoactive bowel sound Extremities:? No edema, palpable pedal pulses Neuro:? Patient is awake, alert, oriented to place, person, was able to tell me his date of , nonfocal, answers to questions appropriately and follows simple commands in all extremities Skin:? No skin lesions noted, skin is warm and dry Psych:? Normal mentation and affect Results Labs 12/06/24 07:36 12/06/24 07:36 Labs: Short CBC 12/05/24 12/06/24 Range/Units 19:22 07:36 WBC 13.8 H 14.9 H (4.5-10.0) K/mm3 Hgb 17.7 D 16.3 (14.0-18.0) g/dL Hct 49.6 46.7 (42.0-52.0) % Plt Count 332 301 (150-375) k/mm3 [facility] [place]/05/[place] 12/05/24 12/06/24 19:22 22:14 01:33 Sodium 119 L* 119 L* 122 L Potassium 3.5 3.0 L Chloride 79 L 85 L Carbon Dioxide 23 26 BUN 14 D 16 Creatinine 0.99 1.03 Glucose 162 H 124 H Calcium 9.8 9.2 12/06/24 07:36 Sodium 124 L Potassium 3.5 Chloride 91 L Carbon Dioxide 24 BUN 14 Creatinine 0.93 Glucose 106 Calcium 8.8 Liver Function 12/05/24 12/06/24 Range/Units 19:22 07:36 Total Bilirubin 2.2 H 1.3 (0.2-1.3) mg/dL AST 46 39 (17-59) U/L ALT 29 15 (6-50) U/L Alkaline Phosphatase 65 54 (38-126) U/L Albumin 5.1 4.1 (3.5-5.1) g/dL Urine 12/05/24 Range/Units 22:52 Urine Color Yellow (Yellow) Urine Appearance Clear (Clear) Urine pH 7.0 (5.0-9.0) Ur Specific [place] 1.013 (1.001-1.035) Urine Protein Trace (Negative) mg/dL Urine Glucose (UA) Negative (Negative) mg/dL Quality VTE Prophylaxis VTE prophylaxis: pharmacologic ordered Hospitalist MIPS Advance Care Plan I have confirmed that the patient's Advanced Care Plan is present, code status is documented, or surrogate decision maker is listed in patient medical record.: Yes Medication Reconciliation I have utilized all available resources to obtain, update and review the patients current medications (includes all prescriptions, OTC, herbals, cannabis, and nutritional supplements).: Yes
[2024-12-06] MEDS: THIAMINE HCL 100 MG TABLET PO (10:52)
[2024-12-06] MEDS: FOLIC ACID 1 MG TABLET PO (10:52)
[2024-12-06 11:21] LABS: Sodium 125 mmol/L (137-145)
[2024-12-06] MEDS: chlordiazePOXIDE (*CRX) 25 MG CAPSULE PO ×2 (11:50→17:59)
[2024-12-06] MEDS: ENOXAPARIN 40 MG/0.4 ML SYRINGE SUB-Q (11:54)
--- NOTE | 2024-12-06 13:07 | P.CONNP_ITS ---
Assessment and Plan Assessment and plan (1) Hyponatremia: Code(s): E87.1 - Hypo-osmolality and hyponatremia Status: Acute Assessment and Plan: * chronic issue as appears to have been present since at least 2016 (from review of records) * baseline sodium seems to run ~ 126 - 132mmol/L * related to several issues: * alcohol abuse * on SSRI (escitalopram) * thyroid disease * PPI use * excessive free water intake (known history) * lung disease/COPD * evaluation (previous and current hospitalization) noted: * TSH okay * cortisol lower side of normal - consider stim test (if sodium does not improve) * SPEP/UPEP negative * urine electrolytes prerenal * urine > serum osmolality on last check * head CT negative * s/p 3% saline in ER (due to #2) * s/p normal saline IVFs * discontinued to prevent overcorrection * goal of therapy is a rate of change of 6 - 8mmol/L in 24 hours (this was achieved) * follow trend of repeat sodium levels (2) Hypokalemia: Code(s): E87.6 - Hypokalemia Status: Acute Assessment and Plan: * suspect due to total body store depletion from diminished oral intake * low magnesium on admission played a role as well * replete as needed * follow magnesium (3) Altered mental status: Code(s): R41.82 - Altered mental status, unspecified Status: Acute Assessment and Plan: * improvement noted * noted on admission to ER * per family -- similar symptom when he had an episode of acute hyponatremia on previous [facility] admission * mentation seems back to baseline at this time (4) Hypertension: Code(s): I10 - Essential (primary) hypertension Status: Chronic Assessment and Plan: * reasonable control * on metoprolol * follow trend of hemodynamics (5) COPD (chronic obstructive pulmonary disease): Code(s): J44.9 - Chronic obstructive pulmonary disease, unspecified Status: Chronic Assessment and Plan: * no evidence of exacerbation * PRN nebulizer treatments (6) Alcohol abuse: Code(s): F10.10 - Alcohol abuse, uncomplicated Status: Acute Assessment and Plan: * as noted by history * drinks 1 pint of whiskey daily * CIWA protocol in place * Librium 25 mg p.o. q.6 hours * on thiamine and folic acid I will continue to follow the patient with you while he remains hospitalized and make further recommendations as deemed necessary. Thank you for allowing me to participate in the care of this patient. L History of Present Illness Reason for Consult Consult date: 12/06/24 Reason for consult: hyponatremia (acute on chronic) Chief Complaint Chief complaint: Severe symptomatic hyponatremia, confusion nausea History of Present Illness Narrative: The patient is a 64-year-old male with a past medical history as outlined below who presented to [facility] Emergency Room with complaints of the altered mental status. According to his family, the patient has been having issues and problems left arm pain but more recently, he has been quite confused with ongoing progression of this symptom over last few days. He apparently also has been drinking a significant amount of water but this is not unusual for him as he has a chronic issue with regard to this ever since his history of throat cancer and subsequent problems with chronic dry mouth leading to his increased fluid intake. Further complicating matters is that he has also noted to have significant alcohol intake approximately 1 pt of whiskey a day. Given his progressive confusion and the fact that the symptoms seem to be similar to when he has had issues and problems with acute on chronic hyponatremia, his family brought him into the emergency room for further assessment. Workup and evaluation emergency room demonstrated the patient be hemodynamically stable but confused. Routine blood tests were done including a chemistry was she was significant for a sodium of 119 millimoles per L. repeat labs were done and this was confirmed. He had no other critical electrolyte abnormalities although his Potassium and magnesium were on the lower limits of normal. His CBC showed a white blood count of 13.8 but no other abnormalities. CT scan of his head did not demonstrate any acute pathology. Given his acute confusion which is thought to be secondary to his acute hyponatremia, the ER doctor gave 3% saline in effort to correct this issue. He was subsequently admitted to the intensive care unit for closer monitoring as well as further evaluation and therapy. Since his admission, he was receiving normal saline but this was discontinued due to concerns for possible over-correction. His potassium and magnesium dropped to by repeat labs any received IV supplementation for these electrolytes. His mental status has significantly improved this morning. Renal consultation was requested due to his acute on chronic hyponatremia. The patient is somewhat familiar to me as I have taking care of him before in the past for this same issue. From review his records, he has chronic hyponatremia that dates back as far as 2015 if not longer and is thought to be secondary to excessive free water intake which is precipitated by his chronic dry mouth ever since he had his throat cancer treated. Other factors that could be playing a role with regard to his acute and chronic hyponatremia are the fact he is on medications that predispose him to this issue, known history of COPD, and prerenal factors given his poor nutritional intake as well as alcohol abuse. Currently, at the time my evaluation, he appears to be in no acute distress. Review of Systems 2 Review of Systems: As per HPI. 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 Godwin Rubin code status: DNR/DNI surrogate decision maker: Mother Smoking packs per day: 3 Smoking cigarettes per day: 60.0 Years smoked: 30 Smoking pack-years: 90.00 Smoking status: Former smoker Tobacco type: cigarettes Second hand tobacco smoke exposure: No Smoking end date: 04/26/07 Alcohol intake: current Drinks per week: 4 Alcohol use details: He used to drink up to 6 drinks per week but has not done so many years. Substance use: current Substance use type: marijuana Other substance usage details: drinks one pint nightly Last use: Wednesday Lack of Transportation: YES Lack of Food: Never True Current Housing: I Have Housing Concerned About Future Housing: No Difficulty Paying Gas/Electric Bills: No Difficulty Paying for Meds: No Currently Unemployed: No Education: High School Diploma/GED Difficulty w/ Childcare or Family Care: No Living arrangements: with family Additional living arrangements comments: He lives with his mother. 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 Gender identity (if verbalized by the patient): Male Sexual Orientation (if Verbalized by the Patient): Straight or Heterosexual Spiritual care concerns: No Meds Home Medications and Allergies Home Medications ?Medication ?Instructions ?Recorded ?Confirmed ?Type aspirin 81 mg tablet,delayed 81 mg PO DAILY 05/15/19 12/06/24 History release metoprolol tartrate 50 mg tablet 50 mg PO DAILY 04/29/23 12/06/24 History multivitamin 1 tablet PO DAILY 04/29/23 12/06/24 History escitalopram oxalate 10 mg tablet 10 mg PO DAILY #90 tabs 06/25/24 12/06/24 Rx levothyroxine 75 mcg tablet See Rx Instructions .Route 08/11/24 12/06/24 Rx .COMPLEX #90 tabs pantoprazole 40 mg tablet,delayed 40 mg PO QAM #90 tabs 10/31/24 12/06/24 Rx release (Protonix) Allergies Allergy/AdvReac Type Severity Reaction Status Date / Time morphine AdvReac Unknown Nausea and Verified 01/12/24 14:20 Vomiting Vital Signs Vital Signs Temp Pulse Resp BP Pulse Ox O2 Del Method 12/06/24 12:00 98.0 F 71 20 127/75 95 Room Air 12/06/24 10:07 67 25 H 111/67 93 12/06/24 08:00 85 12/06/24 08:00 Room Air 12/06/24 08:00 98.1 F 86 26 H 127/69 92 12/06/24 06:00 85 12/06/24 06:00 92 19 106/61 95 12/06/24 04:00 Room Air 12/06/24 04:00 97.6 F 91 28 H 143/75 H 90 12/06/24 04:00 91 12/06/24 02:29 Room Air 12/06/24 01:55 97.9 F 103 H 20 174/92 H 100 12/06/24 01:47 106 H 12/06/24 01:00 90 18 139/81 95 12/06/24 00:30 84 21 H 124/76 95 12/06/24 00:00 88 15 135/80 95 12/05/24 23:30 92 23 H 112/69 98 12/05/24 23:00 92 19 102/69 100 08/12/25 22:06 111 H 22 H 104/74 93 Room Air 12/05/24 22:00 102 H 24 H 104/74 98 12/05/24 21:37 105 H 20 118/68 100 12/05/24 20:29 95.7 F L 111 H 147/53 H 96 12/05/24 19:30 99.6 F 12/05/24 19:12 110 H 18 126/100 H 95 Room Air Exam 2 Narrative: GENERAL APPEARANCE: well developed well nourished male in no acute distress HEENT: normocephalic, atraumatic, normal conjunctiva and sclera, nares patient NECK: no lymphadenopathy, thyromegaly, or JVD MOUTH: normal lips, teeth, and gums CARDIOVASCULAR: RRR, normal S1 and S2, no rub RESPIRATORY: clear to auscultation bilaterally ABDOMEN: soft, nontender, nondistended, positive bowel sounds present EXTREMITIES: no evidence of cyanosis, clubbing, or edema NEUROLOGICAL: alert and oriented x 3; CN II - XII intact bilaterally; no focal deficits noted Results Lab Results 12/07/24 03:39 12/07/24 03:39 Lab results: Most recent lab results Calcium 8.8 mg/dL (8.4-10.2) 12/06/24 07:36 Phosphorus 2.9 mg/dL (2.5-4.5) 12/06/24 07:36 Phosphorus Cancelled 12/06/24 07:36 Magnesium 2.8 mg/dL (1.6-2.3) H 12/06/24 07:36 Magnesium Cancelled 12/06/24 07:36 Urine Creatinine 109.2 mg/dL 12/05/24 22:52
[2024-12-06 15:20] LABS: Sodium 125 mmol/L (137-145)
--- NOTE | 2024-12-06 16:59 | PM.IMPN ---
Progress Note: A&P Assessment and Plan (1) Acute hyponatremia: Code(s): E87.1 - Hypo-osmolality and hyponatremia Status: Acute Assessment and Plan: Presented with acute to infusion, altered mental status. Polydypsia, sodium levels of 119 -Asymptomatic HypoNa -TSH normal 3.9 -if necessary Cortisol will be measured -Possible due to polydipsia -Euvolemia -Goal 6-8 meq/l in 24 hr period -Urine Na pending -urine osmolarity pending -patient was given IV fluids in the ED -started on normal saline at 75 mL/hour per with Nephrology -fluid stopped As per Nephrology recommendation -sodium levels this morning 124 -mentation is improved significantly -appreciate Nephrology following the patient -continue BMPs (2) Acute confusion: Code(s): R41.0 - Disorientation, unspecified Status: Acute Assessment and Plan: Patient presented with altered mental status, acute confusion, polydipsia. According the family these were similar symptoms when he had an episode of acute hypokalemia the last time he was admitted to the [facility]. -12/06: This morning patient is awake, alert, oriented, sodium levels have improved (3) Alcohol abuse: Code(s): F10.10 - Alcohol abuse, uncomplicated Status: Acute Assessment and Plan: Patient drinks 1 pint of whiskey daily, -CIWA protocol has been ordered -Librium 25 mg p.o. q.6 hours schedule -thiamine and folic acid (4) COPD (chronic obstructive pulmonary disease): Code(s): J44.9 - Chronic obstructive pulmonary disease, unspecified Status: Chronic Assessment and Plan: History of COPD, will add p.r.n. bronchodilators (5) Hypothyroid: Code(s): E03.9 - Hypothyroidism, unspecified Status: Acute Assessment and Plan: Continue levothyroxine (6) Hypertension: Code(s): I10 - Essential (primary) hypertension Status: Acute Assessment and Plan: Continue metoprolol Subjective Date/time seen: 12/06/24 16:59 Interval history: Patient reports doing well. Currently not on fluids. Nephrology on board. 1 L restricted diet Review of Systems Review of Systems: All systems reviewed & are unremarkable except as noted in HPI and below ROS unobtainable: Yes unobtainable due to mental status Exam Narrative: General: Pleasant gentleman in no acute distress HEENT:? Pupils equal and reactive, sclera is clear, moist oral mucosa Neck:? Supple Respiratory:? Clear to auscultation bilaterally, no wheezing, adequate air entry Cardiac:? S1-S2 normal, regular rate and rhythm Abdomen:? Soft, nontender, nondistended, normoactive bowel sound Extremities:? No edema, palpable pedal pulses Neuro:? Patient is awake, alert, oriented to place, person, was able to tell me his date of , nonfocal, answers to questions appropriately and follows simple commands in all extremities Skin:? No skin lesions noted, skin is warm and dry Psych:? Normal mentation and affect Objective Data Vital Signs Vital Signs: Vital Signs - 24 hr 12/05/24 19:12 12/05/24 19:30 12/05/24 20:29 Temperature 99.6 F 95.7 F L Pulse Rate 110 H 111 H Respiratory Rate 18 Blood Pressure 126/100 H 147/53 H Pulse Oximetry 95 96 Oxygen Delivery Room Air 12/05/24 21:37 12/05/24 22:00 12/05/24 22:06 Temperature Pulse Rate 105 H 102 H 111 H Respiratory Rate 20 24 H 22 H Blood Pressure 118/68 104/74 104/74 Pulse Oximetry 100 98 93 Oxygen Delivery Room Air 12/05/24 23:00 12/05/24 23:30 12/06/24 00:00 Temperature Pulse Rate 92 92 88 Respiratory Rate 19 23 H 15 Blood Pressure 102/69 112/69 135/80 Pulse Oximetry 100 98 95 Oxygen Delivery 12/06/24 00:30 12/06/24 01:00 12/06/24 01:47 Temperature Pulse Rate 84 90 106 H Respiratory Rate 21 H 18 Blood Pressure 124/76 139/81 Pulse Oximetry 95 95 Oxygen Delivery 12/06/24 01:55 12/06/24 02:29 12/06/24 04:00 Temperature 97.9 F Pulse Rate 103 H 91 Respiratory Rate 20 Blood Pressure 174/92 H Pulse Oximetry 100 Oxygen Delivery Room Air 12/06/24 04:00 12/06/24 04:00 12/06/24 06:00 Temperature 97.6 F Pulse Rate 91 92 Respiratory Rate 28 H 19 Blood Pressure 143/75 H 106/61 Pulse Oximetry 90 95 Oxygen Delivery Room Air 12/06/24 06:00 12/06/24 08:00 12/06/24 08:00 Temperature 98.1 F Pulse Rate 85 86 Respiratory Rate 26 H Blood Pressure 127/69 Pulse Oximetry 92 Oxygen Delivery Room Air 12/06/24 08:00 12/06/24 10:07 12/06/24 12:00 Temperature 98.0 F Pulse Rate 85 67 71 Respiratory Rate 25 H 20 Blood Pressure 111/67 127/75 Pulse Oximetry 93 95 Oxygen Delivery 12/06/24 12:00 12/06/24 16:00 12/06/24 16:44 Temperature 97.7 F Pulse Rate 70 68 Respiratory Rate 11 L Blood Pressure 115/74 Pulse Oximetry 94 Oxygen Delivery Intake/Output Intake/Output: Intake & Output 12/03/24 12/04/24 12/05/24 12/06/24 23:59 23:59 23:59 23:59 Intake Total 150 896.2 Output Total 1460 Balance 150 -563.8 Meds/Results Medications: Active Medications Generic Name Dose Route Start Last Admin Trade Name Freq PRN Reason Stop Dose Admin Acetaminophen 650 mg 12/06/24 00:01 12/06/24 11:50 Acetaminophen 325 Mg Tablet PO 650 mg Q4H PRN Administration Mild Pain (1-3) or Fever Albuterol/Ipratropium 3 ml 12/06/24 11:02 Ipratropium 0.5 Mg/Albuterol Sulfate 2.5 Mg Ampul.Neb 3 Ml INHALATION Q6HRT PRN Wheezing and respiratory distress Aspirin 81 mg 12/06/24 09:00 12/06/24 08:26 Aspirin 81 Mg Enteric Tablet PO 81 mg DAILY AMANDA Administration Chlordiazepoxide HCl 25 mg 12/06/24 12:00 12/06/24 11:50 Chlordiazepoxide (*Crx) 25 Mg Capsule PO 25 mg Q6HR AMANDA Administration Enoxaparin Sodium 40 mg 12/07/24 09:00 Enoxaparin 40 Mg/0.4 Ml Syringe SUB-Q DAILY AMANDA Escitalopram Oxalate 10 mg 12/06/24 09:00 Escitalopram Oxalate 10 Mg Tablet PO DAILY AMANDA Folic Acid 1 mg 12/06/24 10:00 12/06/24 10:52 Folic Acid 1 Mg Tablet PO 1 mg DAILY AMANDA Administration Sodium Chloride 1,000 mls @ 75 mls/hr 12/06/24 00:05 12/06/24 06:41 Normal Saline Iv IV CONT 0 mls/hr .[id number] AMANDA Infusion Levothyroxine Sodium 75 mcg 12/06/24 06:30 12/06/24 05:25 Levothyroxine Sodium 75 Mcg Tablet PO 75 mcg DAILY@0630 AMANDA Administration Lorazepam 2 mg 12/06/24 09:58 Lorazepam Inj (*Crx) 2 Mg/Ml Vial IV PUSH Q2H PRN CIWA>8, HR>100, or DBP>100 Metoprolol Tartrate 50 mg 12/06/24 09:00 12/06/24 08:26 Metoprolol Tartrate 50 Mg Tab PO 50 mg Q12HR AMANDA Administration Multivitamins Therapeutic 1 tablet 12/06/24 09:00 12/06/24 08:26 Multivitamins Therapeutic Tab (*Bkc) PO 1 tablet DAILY AMANDA Administration Nicotine 1 patch 12/06/24 02:50 12/06/24 03:16 Nicotine (*Pbkc) 21 Mg Patch TRANSDERM Not Given DAILY [facility] Ondansetron HCl 4 mg 12/06/24 00:01 Ondansetron Inj 4 Mg/2 Ml Vial IV PUSH Q4H PRN Nausea Pantoprazole Sodium 40 mg 12/06/24 09:00 12/06/24 08:26 Pantoprazole 40 Mg Tablet PO 40 mg QAM AMANDA Administration Thiamine HCl 100 mg 12/06/24 10:00 12/06/24 10:52 Thiamine Hcl 100 Mg Tablet PO 100 mg DAILY AMANDA Administration Radiology Results: ITS Impressions Head CT 12/05/24 23:23 Impression: No acute intracranial hemorrhage or suspicious mass effect. Elbow X-Ray 12/05/24 23:45 IMPRESSION: Degenerative disease, without acute fracture. Labs Labs: Laboratory Results - last 24 hr 12/05/24 12/05/24 12/05/24 19:22 22:14 22:52 WBC 13.8 H RBC 5.36 Hgb 17.7 D Hct 49.6 MCV 92.5 MCH 33.0 MCHC 35.7 RDW 12.1 Plt Count 332 MPV 8.6 Immature Gran % (Auto) 0.9 H Neut % (Auto) 89.1 H Lymph % (Auto) 3.0 L [place] % (Auto) 6.6 Eos % (Auto) 0.1 Baso % (Auto) 0.3 Lymph # (Auto) 0.41 L [place] # (Auto) 0.9 H Eos # (Auto) 0.0 Baso # (Auto) 0.0 Abs Immat Gran (auto) 0.12 H Absolute Neuts (auto) 12.3 H Absolute Nucleated RBC 0.000 Nucleated RBC % 0.0 Sodium 119 L* 119 L* Potassium 3.5 Chloride 79 L Carbon Dioxide 23 Anion Gap 17 H BUN 14 D Creatinine 0.99 Estim Creat Clear Calc 58 Estimated GFR > 60 Glucose 162 H Serum Osmolality Cancelled Calcium 9.8 Phosphorus Magnesium 1.5 L Total Bilirubin 2.2 H AST 46 ALT 29 Alkaline Phosphatase 65 Total Protein 8.6 H Albumin 5.1 Lipase 40 TSH (Reflex) 3.990 Urine Color Yellow Urine Appearance Clear Urine pH 7.0 Ur Specific [place] 1.013 Urine Protein Trace Urine Glucose (UA) Negative Urine Ketones 2+ H Ur Blood (Man) Negative Urine Nitrate Negative Urine Bilirubin Negative Urine Urobilinogen 0.2 Leukocyte Esterase Rfl Negative Urine RBC 3-5 H Urine WBC 0-5 Ur Squamous Epith Cells None seen Urine Bacteria None seen Urine Casts 0-2 Ur Random Sodium 24 Urine Creatinine 109.2 Nasal MRSA (PCR) Urine Opiates Screen Negative Urine Methadone Screen Negative Acetaminophen < 10 L Ur Barbiturates Screen Negative Ur Phencyclidine Scrn Negative Ur Amphetamine Screen Negative U Benzodiazepines Scrn Negative Urine Cocaine Screen Negative U Cannabinoids Screen Positive A Ethyl Alcohol < 10 12/06/24 12/06/24 12/06/24 00:17 01:33 07:36 WBC 14.9 H RBC 4.93 Hgb 16.3 Hct 46.7 MCV 94.7 MCH 33.1 MCHC 34.9 RDW 12.5 Plt Count 301 MPV 8.6 Immature Gran % (Auto) 2.8 H Neut % (Auto) 78.9 H Lymph % (Auto) 6.4 L [place] % (Auto) 11.2 H Eos % (Auto) 0.4 Baso % (Auto) 0.3 Lymph # (Auto) 0.96 [place] # (Auto) 1.7 H Eos # (Auto) 0.1 Baso # (Auto) 0.0 Abs Immat Gran (auto) 0.41 H Absolute Neuts (auto) 11.8 H Absolute Nucleated RBC 0.000 Nucleated RBC % 0.0 Sodium 122 L 124 L Potassium 3.0 L 3.5 Chloride 85 L 91 L Carbon Dioxide 26 24 Anion Gap 11 9 BUN 16 14 Creatinine 1.03 0.93 Estim Creat Clear Calc 56 75 Estimated GFR > 60 > 60 Glucose 124 H 106 Serum Osmolality Calcium 9.2 8.8 Phosphorus 2.9 Magnesium Total Bilirubin AST ALT Alkaline Phosphatase Total Protein Albumin Lipase TSH (Reflex) Urine Color Urine Appearance Urine pH Ur Specific [place] Urine Protein Urine Glucose (UA) Urine Ketones Ur Blood (Man) Urine Nitrate Urine Bilirubin Urine Urobilinogen Leukocyte Esterase Rfl Urine RBC Urine WBC Ur Squamous Epith Cells Urine Bacteria Urine Casts Ur Random Sodium Urine Creatinine Nasal MRSA (PCR) Not detected Urine Opiates Screen Urine Methadone Screen Acetaminophen Ur Barbiturates Screen Ur Phencyclidine Scrn Ur Amphetamine Screen U Benzodiazepines Scrn Urine Cocaine Screen U Cannabinoids Screen Ethyl Alcohol 12/06/24 12/06/24 12/06/24 07:36 07:36 10:53 WBC RBC Hgb Hct MCV MCH MCHC RDW Plt Count MPV Immature Gran % (Auto) Neut % (Auto) Lymph % (Auto) [place] % (Auto) Eos % (Auto) Baso % (Auto) Lymph # (Auto) [place] # (Auto) Eos # (Auto) Baso # (Auto) Abs Immat Gran (auto) Absolute Neuts (auto) Absolute Nucleated RBC Nucleated RBC % Sodium 125 L Potassium Chloride Carbon Dioxide Anion Gap BUN Creatinine Estim Creat Clear Calc Estimated GFR Glucose Serum Osmolality Calcium Phosphorus Cancelled Magnesium 2.8 H Cancelled Total Bilirubin 1.3 AST 39 ALT 15 Alkaline Phosphatase 54 Total Protein 6.9 Albumin 4.1 Lipase TSH (Reflex) Urine Color Urine Appearance Urine pH Ur Specific [place] Urine Protein Urine Glucose (UA) Urine Ketones Ur Blood (Man) Urine Nitrate Urine Bilirubin Urine Urobilinogen Leukocyte Esterase Rfl Urine RBC Urine WBC Ur Squamous Epith Cells Urine Bacteria Urine Casts Ur Random Sodium Urine Creatinine Nasal MRSA (PCR) Urine Opiates Screen Urine Methadone Screen Acetaminophen Ur Barbiturates Screen Ur Phencyclidine Scrn Ur Amphetamine Screen U Benzodiazepines Scrn Urine Cocaine Screen U Cannabinoids Screen Ethyl Alcohol 12/06/24 14:59 WBC RBC Hgb Hct MCV MCH MCHC RDW Plt Count MPV Immature Gran % (Auto) Neut % (Auto) Lymph % (Auto) [place] % (Auto) Eos % (Auto) Baso % (Auto) Lymph # (Auto) [place] # (Auto) Eos # (Auto) Baso # (Auto) Abs Immat Gran (auto) Absolute Neuts (auto) Absolute Nucleated RBC Nucleated RBC % Sodium 125 L Potassium Chloride Carbon Dioxide Anion Gap BUN Creatinine Estim Creat Clear Calc Estimated GFR Glucose Serum Osmolality Calcium Phosphorus Magnesium Total Bilirubin AST ALT Alkaline Phosphatase Total Protein Albumin Lipase TSH (Reflex) Urine Color Urine Appearance Urine pH Ur Specific [place] Urine Protein Urine Glucose (UA) Urine Ketones Ur Blood (Man) Urine Nitrate Urine Bilirubin Urine Urobilinogen Leukocyte Esterase Rfl Urine RBC Urine WBC Ur Squamous Epith Cells Urine Bacteria Urine Casts Ur Random Sodium Urine Creatinine Nasal MRSA (PCR) Urine Opiates Screen Urine Methadone Screen Acetaminophen Ur Barbiturates Screen Ur Phencyclidine Scrn Ur Amphetamine Screen U Benzodiazepines Scrn Urine Cocaine Screen U Cannabinoids Screen Ethyl Alcohol Quality VTE Prophylaxis VTE prophylaxis: pharmacologic ordered Hospitalist [facility] Advance Care Plan I have confirmed that the patient's Advanced Care Plan is present, code status is documented, or surrogate decision maker is listed in patient medical record.: Yes Medication Reconciliation I have utilized all available resources to obtain, update and review the patients current medications (includes all prescriptions, OTC, herbals, cannabis, and nutritional supplements).: Yes
--- NOTE | 2024-12-06 22:45 | PC.NURSE ---
This patient, Emeka Velazco, was transferred to [facility] on 12/06/24 at 2235. Personal belongings sent with patient. Report given to VICTORINO rIene. Appropriate documentation sent with patient.
[2024-12-06 23:31] LABS: Sodium 125 mmol/L (137-145)
[2024-12-07] VITALS (13 sets, daily range): BP systolic 119–150; BP diastolic 73–98; PULSE 56–77; RESP 16–21; TEMP 36.3–36.7; O2SAT 96–100
[2024-12-07] MEDS: chlordiazePOXIDE (*CRX) 25 MG CAPSULE PO ×4 (00:14→17:19)
[2024-12-07 04:04] LABS: Hematocrit 47.4 % (42.0-52.0); Hemoglobin 16.3 g/dL (14.0-18.0); Immature Granulocyte Percent A 1.0 % (0-0.5); Lymphocytes Absolute Auto 1.52 K/mm3 (0.9-3.2); Mean Corpuscular HGB Conc 34.4 g/dl (32-36); Mean Corpuscular Hemoglobin 33.1 pg (26-34); Mean Corpuscular Volume 96.3 fl (80-100); Nucleated Red Blood Cells Absolute Auto 0.000 K/mm3 (0.0-0.012); Nucleated Red Blood Cells Perc 0.0 % (0.0-0.2); Platelet Count Result 307 k/mm3 (150-375); Red Blood Count 4.92 M/mm3 (4.6-6.20); White Blood Count 11.5 K/mm3 (4.5-10.0)
[2024-12-07 04:17] LABS: Alanine Aminotransferase 18 U/L (6-50); Albumin Level 4.2 g/dL (3.5-5.1); Alkaline Phosphatase 50 U/L (38-126); Anion Gap 10 mmol/L (4-12); Aspartate Amino Transferase 42 U/L (17-59); Bilirubin,Total 1.4 mg/dL (0.2-1.3); Blood Urea Nitrogen 13 mg/dL (9-20); Calcium 9.1 mg/dL (8.4-10.2); Carbon Dioxide 26 mmol/L (22-30); Chloride 92 mmol/L (98-107); Estimated CRCL calculation 77 ml/min; Estimated Glomerular Filt Rate > 60; Glucose 92 mg/dL (65-110); Magnesium 2.0 mg/dL (1.6-2.3); Potassium 3.2 mmol/L (3.4-5.0); Sodium 128 mmol/L (137-145); Total Protein 7.0 g/dL (6.3-8.2)
[2024-12-07] MEDS: SODIUM CHLORIDE 0.9% IV 1,000 ML 75 ML IV CONT (05:02)
[2024-12-07] MEDS: LEVOTHYROXINE SODIUM 75 MCG TABLET PO (05:05)
[2024-12-07] MEDS: NICOTINE (*PBKC) 21 MG PATCH 1 PATCH TRANSDERM (08:58)
[2024-12-07] MEDS: MULTIVITAMINS THERAPEUTIC TAB (*BKC) 1 TABLET PO (08:59)
[2024-12-07] MEDS: THIAMINE HCL 100 MG TABLET PO (08:59)
[2024-12-07] MEDS: METOPROLOL TARTRATE 50 MG TAB PO ×2 (08:59→20:40)
[2024-12-07] MEDS: ASPIRIN 81 MG ENTERIC TABLET PO (08:59)
[2024-12-07] MEDS: ENOXAPARIN 40 MG/0.4 ML SYRINGE SUB-Q (08:59)
[2024-12-07] MEDS: PANTOPRAZOLE 40 MG TABLET PO (08:59)
[2024-12-07] MEDS: FOLIC ACID 1 MG TABLET PO (09:00)
[2024-12-07 12:08] LABS: Chloride, Urine 28 mmol/L (Not Estab.)
[2024-12-07] MEDS: POTASSIUM CHLORIDE 20 MEQ ER TABLET 40 MEQ PO ×2 (12:54→18:17)
--- NOTE | 2024-12-07 13:01 | P.PNNP_ITS ---
Progress Note: A&P Assessment and Plan (1) Hyponatremia: Code(s): E87.1 - Hypo-osmolality and hyponatremia Status: Acute Assessment and Plan: * chronic issues as appears to have been present since at least 2016 (from review of records) * baseline sodium seems to run ~ 126 - 132mmol/L * related to several issues: * alcohol abuse * on SSRI (escitalopram) * thyroid disease * PPI use * excessive free water intake (known history) * lung disease/COPD * evaluation (previous and current hospitalization) noted: * TSH okay * cortisol lowish - consider stim test (if sodium does not improve) * SPEP/UPEP negative * urine electrolytes prerenal * urine > serum osmolality on last check * head CT negative * s/p 3% saline in ER (due to #2) * s/p normal saline IVFs * discontinued to prevent overcorrection * goal of therapy is a rate of change of 6 - 8mmol/L in 24 hours (this was acheived) * agree with fluid restriction * follow trend of repeat sodium levels (2) Hypokalemia: Code(s): E87.6 - Hypokalemia Status: Acute Assessment and Plan: * suspect due to total body store depletion from diminished oral intake * low magnesium on admission played a role as well * replete as needed * follow magnesium (3) Altered mental status: Code(s): R41.82 - Altered mental status, unspecified Status: Acute Assessment and Plan: * improvement noted * noted on admission to ER * per family -- similar symptom when he had an episode of acute hyponatremia on previous [facility] admission * mentation seems back to baseline at this time (4) Hypertension: Code(s): I10 - Essential (primary) hypertension Status: Chronic Assessment and Plan: * reasonable control * on metoprolol * follow trend of hemodynamics (5) COPD (chronic obstructive pulmonary disease): Code(s): J44.9 - Chronic obstructive pulmonary disease, unspecified Status: Chronic Assessment and Plan: * no evidence of exacerbation * PRN nebulizer treatments (6) Alcohol abuse: Code(s): F10.10 - Alcohol abuse, uncomplicated Status: Acute Assessment and Plan: * as noted by history * drinks 1 pint of whiskey daily * CIWA protocol in place * Librium 25 mg p.o. q.6 hours * on thiamine and folic acid Would not be opposed to discharge from renal perspective later today or tomorrow if he is otherwise medically stable. Will continue to follow. L Subjective Date/time seen: 12/07/24 13:01 Interval history: Follow-up for acute on chronic hyponatremia. Transferred out of ICU; sodium continues to improve with current interventions/therapy (just on fluid restriction); no apparent distress noted at the time of my visit; no issues/events overnight or earlier this morning. Exam 2 Narrative: General: WD/WN male in NAD Heart: normal S1 and S2; no rub Lungs: clear to auscultation Abdomen: soft, nontender, nondistended, positive bowel sounds Extremities: no cyanosis or clubbing; no edema Skin: warm and dry Objective Data Vital Signs Vital Signs: Vital Signs Temp Pulse Resp BP Pulse Ox O2 Del Method 12/07/24 12:00 97.8 F 64 18 148/73 H 98 12/07/24 08:59 58 L 12/07/24 08:40 70 12/07/24 08:00 97.9 F 58 L 20 139/80 100 12/07/24 06:23 58 L 12/07/24 04:00 63 12/07/24 00:20 98.1 F 56 L 21 H 143/76 H 97 12/07/24 00:10 97 Room Air 12/07/24 00:00 62 12/06/24 21:54 64 12/06/24 20:00 Room Air 12/06/24 20:00 62 12/06/24 20:00 97.6 F 65 22 H 132/80 98 12/06/24 16:44 97.7 F 94 12/06/24 16:00 69 12/06/24 16:00 68 11 L 115/74 Intake/Output Intake/Output: Intake & Output 12/04/24 12/05/24 12/06/24 12/07/24 23:59 23:59 23:59 23:59 Intake Total 150 1196.2 310 Output Total 1460 1550 Balance 150 -263.8 -1240 Meds/Results Medications: Active Medications Generic Name Dose Route Start Last Admin Trade Name Freq PRN Reason Stop Dose Admin Acetaminophen 650 mg 12/06/24 00:01 12/06/24 11:50 Acetaminophen 325 Mg Tablet PO 650 mg Q4H PRN Administration Mild Pain (1-3) or Fever Albuterol/Ipratropium 3 ml 12/06/24 11:02 Ipratropium 0.5 Mg/Albuterol Sulfate 2.5 Mg Ampul.Neb 3 Ml INHALATION Q6HRT PRN Wheezing and respiratory distress Aspirin 81 mg 12/06/24 09:00 12/07/24 08:59 Aspirin 81 Mg Enteric Tablet PO 81 mg DAILY AMANDA Administration Chlordiazepoxide HCl 25 mg 12/06/24 12:00 12/07/24 12:54 Chlordiazepoxide (*Crx) 25 Mg Capsule PO 25 mg Q6HR AMANDA Administration Enoxaparin Sodium 40 mg 12/07/24 09:00 12/07/24 08:59 Enoxaparin 40 Mg/0.4 Ml Syringe SUB-Q 40 mg DAILY AMANDA Administration Escitalopram Oxalate 10 mg 12/06/24 09:00 Escitalopram Oxalate 10 Mg Tablet PO DAILY AMANDA Folic Acid 1 mg 12/06/24 10:00 12/07/24 09:00 Folic Acid 1 Mg Tablet PO 1 mg DAILY AMANDA Administration Sodium Chloride 1,000 mls @ 75 mls/hr 12/06/24 00:05 12/07/24 05:02 Normal Saline Iv IV CONT 75 mls/hr .[id number] AMANDA Administration Levothyroxine Sodium 75 mcg 12/06/24 06:30 12/07/24 05:05 Levothyroxine Sodium 75 Mcg Tablet PO 75 mcg DAILY@0630 AMANDA Administration Lorazepam 2 mg 12/06/24 09:58 Lorazepam Inj (*Crx) 2 Mg/Ml Vial IV PUSH Q2H PRN CIWA>8, HR>100, or DBP>100 Metoprolol Tartrate 50 mg 12/06/24 09:00 12/07/24 08:59 Metoprolol Tartrate 50 Mg Tab PO 50 mg Q12HR AMANDA Administration Multivitamins Therapeutic 1 tablet 12/06/24 09:00 12/07/24 08:59 Multivitamins Therapeutic Tab (*Bkc) PO 1 tablet DAILY AMANDA Administration Nicotine 1 patch 12/06/24 02:50 12/07/24 08:58 Nicotine (*Pbkc) 21 Mg Patch TRANSDERM 1 patch DAILY AMANDA Administration Ondansetron HCl 4 mg 12/06/24 00:01 Ondansetron Inj 4 Mg/2 Ml Vial IV PUSH Q4H PRN Nausea Pantoprazole Sodium 40 mg 12/06/24 09:00 12/07/24 08:59 Pantoprazole 40 Mg Tablet PO 40 mg QAM AMANDA Administration Thiamine HCl 100 mg 12/06/24 10:00 12/07/24 08:59 Thiamine Hcl 100 Mg Tablet PO 100 mg DAILY AMANDA Administration Radiology Results: ITS Impressions Head CT 12/05/24 23:23 Impression: No acute intracranial hemorrhage or suspicious mass effect. Elbow X-Ray 12/05/24 23:45 IMPRESSION: Degenerative disease, without acute fracture. Labs Labs: Laboratory Tests 12/07/24 03:39 12/07/24 03:39 Calcium 9.1 Phosphorus 3.0 Magnesium 2.0 Total Bilirubin 1.4 H AST 42 ALT 18 Alkaline Phosphatase 50 Total Protein 7.0 Albumin 4.2
--- NOTE | 2024-12-07 14:36 | PC.NURSE ---
pt moved to room 251 via bed accompanied by staff- belongings with pt- report called to [facility]
--- NOTE | 2024-12-07 14:39 | PC.NURSE ---
This patient, Emeka Velazco, was received from IMU on 12/07/24 at 1435. Patient/family oriented to unit policies and routines
--- NOTE | 2024-12-07 16:53 | PM.IMPN ---
Progress Note: A&P Assessment and Plan (1) Acute hyponatremia: Code(s): E87.1 - Hypo-osmolality and hyponatremia Status: Acute Assessment and Plan: Presented with acute to infusion, altered mental status. Polydypsia, sodium levels of 119 -Asymptomatic HypoNa -TSH normal 3.9 -if necessary Cortisol will be measured -Possible due to polydipsia -Euvolemia -Goal 6-8 meq/l in 24 hr period -Urine Na pending -urine osmolarity pending -patient was given IV fluids in the ED -started on normal saline at 75 mL/hour per with Nephrology -fluid stopped As per Nephrology recommendation -sodium levels this morning 124 -mentation is improved significantly -appreciate Nephrology following the patient -continue BMPs (2) Acute confusion: Code(s): R41.0 - Disorientation, unspecified Status: Acute Assessment and Plan: Patient presented with altered mental status, acute confusion, polydipsia. According the family these were similar symptoms when he had an episode of acute hypokalemia the last time he was admitted to the [facility]. -12/06: This morning patient is awake, alert, oriented, sodium levels have improved (3) Alcohol abuse: Code(s): F10.10 - Alcohol abuse, uncomplicated Status: Acute Assessment and Plan: Patient drinks 1 pint of whiskey daily, -CIWA protocol has been ordered -Librium 25 mg p.o. q.6 hours schedule -thiamine and folic acid (4) COPD (chronic obstructive pulmonary disease): Code(s): J44.9 - Chronic obstructive pulmonary disease, unspecified Status: Chronic Assessment and Plan: History of COPD, will add p.r.n. bronchodilators (5) Hypothyroid: Code(s): E03.9 - Hypothyroidism, unspecified Status: Acute Assessment and Plan: Continue levothyroxine (6) Hypertension: Code(s): I10 - Essential (primary) hypertension Status: Chronic Assessment and Plan: Continue metoprolol Subjective Date/time seen: 12/07/24 16:53 Interval history: Discussed with the patient mother. No acute events overnight. Patient lives with his mother. 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 Patient follows up with oncologist but last follow up years ago. As per mother she only able to take care of his son at home. Will discuss with direct support professional caregiver Review of Systems Review of Systems: All systems reviewed & are unremarkable except as noted in HPI and below ROS unobtainable: Yes unobtainable due to mental status Exam Narrative: General: Pleasant gentleman in no acute distress HEENT:? Pupils equal and reactive, sclera is clear, moist oral mucosa Neck:? Supple Respiratory:? Clear to auscultation bilaterally, no wheezing, adequate air entry Cardiac:? S1-S2 normal, regular rate and rhythm Abdomen:? Soft, nontender, nondistended, normoactive bowel sound Extremities:? No edema, palpable pedal pulses Neuro:? Patient is awake, alert, oriented to place, person, was able to tell me his date of , nonfocal, answers to questions appropriately and follows simple commands in all extremities Skin:? No skin lesions noted, skin is warm and dry Psych:? Normal mentation and affect Objective Data Vital Signs Vital Signs: Vital Signs - 24 hr 12/06/24 20:00 12/06/24 20:00 12/06/24 20:00 Temperature 97.6 F Pulse Rate 65 62 Respiratory Rate 22 H Blood Pressure 132/80 Pulse Oximetry 98 Oxygen Delivery Room Air 12/06/24 21:54 12/07/24 00:00 12/07/24 00:10 Temperature Pulse Rate 64 62 Respiratory Rate Blood Pressure Pulse Oximetry 97 Oxygen Delivery Room Air 12/07/24 00:20 12/07/24 04:00 12/07/24 06:23 Temperature 98.1 F Pulse Rate 56 L 63 58 L Respiratory Rate 21 H Blood Pressure 143/76 H Pulse Oximetry 97 Oxygen Delivery 12/07/24 08:00 12/07/24 08:40 12/07/24 08:59 Temperature 97.9 F Pulse Rate 58 L 70 58 L Respiratory Rate 20 Blood Pressure 139/80 Pulse Oximetry 100 Oxygen Delivery 12/07/24 12:00 12/07/24 14:40 12/07/24 16:00 Temperature 97.8 F 97.6 F Pulse Rate 64 61 Respiratory Rate 18 18 Blood Pressure 148/73 H 150/98 H Pulse Oximetry 98 100 Oxygen Delivery Room Air 12/07/24 16:00 Temperature Pulse Rate 77 Respiratory Rate Blood Pressure Pulse Oximetry Oxygen Delivery Intake/Output Intake/Output: Intake & Output 12/04/24 12/05/24 12/06/2425 23:59 23:59 23:59 23:59 Intake Total 150 1196.2 310 Output Total 1460 1550 Balance 150 -263.8 -1240 Meds/Results Medications: Active Medications Generic Name Dose Route Start Last Admin Trade Name Freq PRN Reason Stop Dose Admin Acetaminophen 650 mg 12/06/24 00:01 12/06/24 11:50 Acetaminophen 325 Mg Tablet PO 650 mg Q4H PRN Administration Mild Pain (1-3) or Fever Albuterol/Ipratropium 3 ml 12/06/24 11:02 Ipratropium 0.5 Mg/Albuterol Sulfate 2.5 Mg Ampul.Neb 3 Ml INHALATION Q6HRT PRN Wheezing and respiratory distress Aspirin 81 mg 12/06/24 09:00 12/07/24 08:59 Aspirin 81 Mg Enteric Tablet PO 81 mg DAILY AMANDA Administration Chlordiazepoxide HCl 25 mg 12/06/24 12:00 12/07/24 12:54 Chlordiazepoxide (*Crx) 25 Mg Capsule PO 25 mg Q6HR AMANDA Administration Enoxaparin Sodium 40 mg 12/07/24 09:00 12/07/24 08:59 Enoxaparin 40 Mg/0.4 Ml Syringe SUB-Q 40 mg DAILY AMANDA Administration Escitalopram Oxalate 10 mg 12/06/24 09:00 Escitalopram Oxalate 10 Mg Tablet PO DAILY AMANDA Folic Acid 1 mg 12/06/24 10:00 12/07/24 09:00 Folic Acid 1 Mg Tablet PO 1 mg DAILY AMANDA Administration Levothyroxine Sodium 75 mcg 12/06/24 06:30 12/07/24 05:05 Levothyroxine Sodium 75 Mcg Tablet PO 75 mcg DAILY@0630 AMANDA Administration Lorazepam 2 mg 12/06/24 09:58 Lorazepam Inj (*Crx) 2 Mg/Ml Vial IV PUSH Q2H PRN CIWA>8, HR>100, or DBP>100 Metoprolol Tartrate 50 mg 12/06/24 09:00 12/07/24 08:59 Metoprolol Tartrate 50 Mg Tab PO 50 mg Q12HR AMANDA Administration Multivitamins Therapeutic 1 tablet 12/06/24 09:00 12/07/24 08:59 Multivitamins Therapeutic Tab (*Bkc) PO 1 tablet DAILY AMANDA Administration Nicotine 1 patch 12/06/24 02:50 12/07/24 08:58 Nicotine (*Pbkc) 21 Mg Patch TRANSDERM 1 patch DAILY AMANDA Administration Ondansetron HCl 4 mg 12/06/24 00:01 Ondansetron Inj 4 Mg/2 Ml Vial IV PUSH Q4H PRN Nausea Pantoprazole Sodium 40 mg 12/06/24 09:00 12/07/24 08:59 Pantoprazole 40 Mg Tablet PO 40 mg QAM AMANDA Administration Thiamine HCl 100 mg 12/06/24 10:00 12/07/24 08:59 Thiamine Hcl 100 Mg Tablet PO 100 mg DAILY AMANDA Administration Radiology Results: ITS Impressions Head CT 12/05/24 23:23 Impression: No acute intracranial hemorrhage or suspicious mass effect. Elbow X-Ray 12/05/24 23:45 IMPRESSION: Degenerative disease, without acute fracture. Labs Labs: Laboratory Results - last 24 hr 12/05/24 12/06/24 12/06/24 22:52 18:17 23:13 WBC RBC Hgb Hct MCV MCH MCHC RDW Plt Count MPV Immature Gran % (Auto) Neut % (Auto) Lymph % (Auto) Harney % (Auto) Eos % (Auto) Baso % (Auto) Lymph # (Auto) [place] # (Auto) Eos # (Auto) Baso # (Auto) Abs Immat Gran (auto) Absolute Neuts (auto) Absolute Nucleated RBC Nucleated RBC % Sodium 125 L Potassium Chloride Carbon Dioxide Anion Gap BUN Creatinine Estim Creat Clear Calc Estimated GFR Glucose POC Capillary Glucose 126 H Calcium Phosphorus Magnesium Total Bilirubin AST ALT Alkaline Phosphatase Total Protein Albumin Ur Random Creatinine 103.3 Urine Chloride 28 12/07/24 12/07/24 12/07/24 00:16 03:39 06:13 WBC 11.5 H RBC 4.92 Hgb 16.3 Hct 47.4 MCV 96.3 MCH 33.1 MCHC 34.4 RDW 12.5 Plt Count 307 MPV 8.7 Immature Gran % (Auto) 1.0 H Neut % (Auto) 71.0 Lymph % (Auto) 13.2 L Har[place] % (Auto) 11.5 H Eos % (Auto) 2.0 Baso % (Auto) 1.3 H Lymph # (Auto) 1.52 [place] # (Auto) 1.3 H Eos # (Auto) 0.2 Baso # (Auto) 0.2 H Abs Immat Gran (auto) 0.11 H Absolute Neuts (auto) 8.2 H Absolute Nucleated RBC 0.000 Nucleated RBC % 0.0 Sodium 128 L Potassium 3.2 L Chloride 92 L Carbon Dioxide 26 Anion Gap 10 BUN 13 Creatinine 0.90 Estim Creat Clear Calc 77 Estimated GFR > 60 Glucose 92 POC Capillary Glucose 256 H 105 Calcium 9.1 Phosphorus 3.0 Magnesium 2.0 Total Bilirubin 1.4 H AST 42 ALT 18 Alkaline Phosphatase 50 Total Protein 7.0 Albumin 4.2 Ur Random Creatinine Urine Chloride 12/07/24 11:42 WBC RBC Hgb Hct MCV MCH MCHC RDW Plt Count MPV Immature Gran % (Auto) Neut % (Auto) Lymph % (Auto) Har[place] % (Auto) Eos % (Auto) Baso % (Auto) Lymph # (Auto) Harney # (Auto) Eos # (Auto) Baso # (Auto) Abs Immat Gran (auto) Absolute Neuts (auto) Absolute Nucleated RBC Nucleated RBC % Sodium Potassium Chloride Carbon Dioxide Anion Gap BUN Creatinine Estim Creat Clear Calc Estimated GFR Glucose POC Capillary Glucose 90 Calcium Phosphorus Magnesium Total Bilirubin AST ALT Alkaline Phosphatase Total Protein Albumin Ur Random Creatinine Urine Chloride Quality VTE Prophylaxis VTE prophylaxis: pharmacologic ordered Hospitalist MIPS Advance Care Plan I have confirmed that the patient's Advanced Care Plan is present, code status is documented, or surrogate decision maker is listed in patient medical record.: Yes Medication Reconciliation I have utilized all available resources to obtain, update and review the patients current medications (includes all prescriptions, OTC, herbals, cannabis, and nutritional supplements).: Yes
[2024-12-07 17:28] LABS: Anion Gap 9 mmol/L (4-12); Blood Urea Nitrogen 12 mg/dL (9-20); Calcium 9.0 mg/dL (8.4-10.2); Carbon Dioxide 25 mmol/L (22-30); Chloride 92 mmol/L (98-107); Estimated CRCL calculation 87 ml/min; Estimated Glomerular Filt Rate > 60; Glucose 91 mg/dL (65-110); Potassium 3.3 mmol/L (3.4-5.0); Sodium 126 mmol/L (137-145)
[2024-12-08] VITALS (13 sets, daily range): BP systolic 119–138; BP diastolic 60–89; PULSE 58–82; RESP 16–20; TEMP 36.3–36.4; O2SAT 96–97
[2024-12-08] MEDS: chlordiazePOXIDE (*CRX) 25 MG CAPSULE PO ×5 (00:36→23:41)
[2024-12-08] MEDS: LEVOTHYROXINE SODIUM 75 MCG TABLET PO (05:44)
[2024-12-08 05:48] LABS: Hematocrit 48.1 % (42.0-52.0); Hemoglobin 16.2 g/dL (14.0-18.0); Immature Granulocyte Percent A 1.6 % (0-0.5); Lymphocytes Absolute Auto 1.46 K/mm3 (0.9-3.2); Mean Corpuscular HGB Conc 33.7 g/dl (32-36); Mean Corpuscular Hemoglobin 33.3 pg (26-34); Mean Corpuscular Volume 98.8 fl (80-100); Nucleated Red Blood Cells Absolute Auto 0.000 K/mm3 (0.0-0.012); Nucleated Red Blood Cells Perc 0.0 % (0.0-0.2); Platelet Count Result 303 k/mm3 (150-375); Red Blood Count 4.87 M/mm3 (4.6-6.20); White Blood Count 10.4 K/mm3 (4.5-10.0)
[2024-12-08 06:08] LABS: Alanine Aminotransferase 18 U/L (6-50); Albumin Level 4.3 g/dL (3.5-5.1); Alkaline Phosphatase 52 U/L (38-126); Anion Gap 7 mmol/L (4-12); Aspartate Amino Transferase 38 U/L (17-59); Bilirubin,Total 1.5 mg/dL (0.2-1.3); Blood Urea Nitrogen 13 mg/dL (9-20); Calcium 9.4 mg/dL (8.4-10.2); Carbon Dioxide 26 mmol/L (22-30); Chloride 94 mmol/L (98-107); Estimated CRCL calculation 77 ml/min; Estimated Glomerular Filt Rate > 60; Glucose 82 mg/dL (65-110); Magnesium 1.8 mg/dL (1.6-2.3); Potassium 3.9 mmol/L (3.4-5.0); Sodium 127 mmol/L (137-145); Total Protein 7.1 g/dL (6.3-8.2)
[2024-12-08] MEDS: ENOXAPARIN 40 MG/0.4 ML SYRINGE SUB-Q (08:37)
[2024-12-08] MEDS: FOLIC ACID 1 MG TABLET PO (08:38)
[2024-12-08] MEDS: METOPROLOL TARTRATE 50 MG TAB PO ×2 (08:38→20:13)
[2024-12-08] MEDS: MULTIVITAMINS THERAPEUTIC TAB (*BKC) 1 TABLET PO (08:38)
[2024-12-08] MEDS: PANTOPRAZOLE 40 MG TABLET PO (08:38)
[2024-12-08] MEDS: ASPIRIN 81 MG ENTERIC TABLET PO (08:38)
[2024-12-08] MEDS: THIAMINE HCL 100 MG TABLET PO (08:38)
[2024-12-08 12:41] LABS: Osmolality, Urine 346
--- NOTE | 2024-12-08 13:26 | P.PNNP_ITS ---
Progress Note: A&P Assessment and Plan (1) Hyponatremia: Code(s): E87.1 - Hypo-osmolality and hyponatremia Status: Acute Assessment and Plan: * appears to have stabilized * chronic issues as appears to have been present since at least 2016 (from review of records) * baseline sodium seems to run ~ 126 - 132mmol/L * related to several issues: * alcohol abuse * on SSRI (escitalopram) * thyroid disease * PPI use * excessive free water intake (known history) * lung disease/COPD * evaluation (previous and current hospitalization) noted: * TSH okay * cortisol lowish - consider stim test (if sodium does not improve) * SPEP/UPEP negative * urine electrolytes prerenal * urine > serum osmolality on this and last admission * head CT negative * s/p 3% saline in ER (due to #2) * s/p normal saline IVFs * discontinued to prevent overcorrection * goal of therapy is a rate of change of 6 - 8mmol/L in 24 hours (this was achieved) * continue fluid restriction * consider salt tabs + lasix if sodium declines further * he was apparently on salt tablets before... * follow trend of repeat sodium levels (2) Hypokalemia: Code(s): E87.6 - Hypokalemia Status: Acute Assessment and Plan: * suspect due to total body store depletion from diminished oral intake * low magnesium on admission played a role as well * replete as needed * follow magnesium (3) Altered mental status: Code(s): R41.82 - Altered mental status, unspecified Status: Acute Assessment and Plan: * improvement noted * noted on admission to ER * per family -- similar symptom when he had an episode of acute hyponatremia on previous [facility] admission * mentation seems back to baseline at this time (4) Hypertension: Code(s): I10 - Essential (primary) hypertension Status: Chronic Assessment and Plan: * reasonable control * on metoprolol * follow trend of hemodynamics (5) COPD (chronic obstructive pulmonary disease): Code(s): J44.9 - Chronic obstructive pulmonary disease, unspecified Status: Chronic Assessment and Plan: * no evidence of exacerbation * PRN nebulizer treatments (6) Alcohol abuse: Code(s): F10.10 - Alcohol abuse, uncomplicated Status: Acute Assessment and Plan: * as noted by history * drinks 1 pint of whiskey daily * [facility] protocol in place * Librium 25 mg p.o. q.6 hours * on thiamine and folic acid Will continue to follow. L Subjective Date/time seen: 12/08/24 13:26 Interval history: Follow-up for acute on chronic hyponatremia. Sodium remains relatively stable with current therapy/interventions; mentation appears stable if not at baseline; no apparent distress voiced at this time; no other issues/events overnight or earlier this morning. Exam 2 Narrative: General: WD/WN male in NAD Heart: normal S1 and S2; no rub Lungs: clear to auscultation Abdomen: soft, nontender, nondistended, positive bowel sounds Extremities: no cyanosis or clubbing; no edema Skin: warm and intact Objective Data Vital Signs Vital Signs: Vital Signs Temp Pulse Resp BP Pulse Ox O2 Del Method 12/08/24 12:03 Room Air 12/08/24 10:57 Room Air 12/08/24 08:38 82 12/08/24 08:03 66 12/08/24 08:03 66 20 97 Room Air 12/08/24 06:22 97.3 F L 79 20 123/60 97 12/08/24 05:11 97.3 F L 79 20 123/60 97 12/08/24 04:00 58 L 12/08/24 04:00 119/83 12/08/24 00:00 62 12/08/24 00:00 119/83 12/07/24 23:29 97.3 F L 72 16 119/83 96 12/07/24 20:40 76 12/07/24 20:00 62 12/07/24 20:00 Room Air 12/07/24 20:00 150/98 H Intake/Output Intake/Output: Intake & Output 12/05/24 12/06/24 12/07/24 12/08/24 23:59 23:59 23:59 23:59 Intake Total 150 1196.2 860 240 Output Total 1460 1820 350 Balance 150 -263.8 -960 -110 Meds/Results Medications: Active Medications Generic Name Dose Route Start Last Admin Trade Name Freq PRN Reason Stop Dose Admin Acetaminophen 650 mg 12/06/24 00:01 12/06/24 11:50 Acetaminophen 325 Mg Tablet PO 650 mg Q4H PRN Administration Mild Pain (1-3) or Fever Albuterol/Ipratropium 3 ml 12/06/24 11:02 Ipratropium 0.5 Mg/Albuterol Sulfate 2.5 Mg Ampul.Neb 3 Ml INHALATION Q6HRT PRN Wheezing and respiratory distress Aspirin 81 mg 12/06/24 09:00 12/08/24 08:38 Aspirin 81 Mg Enteric Tablet PO 81 mg DAILY AMANDA Administration Chlordiazepoxide HCl 25 mg 12/06/24 12:00 12/08/24 17:16 Chlordiazepoxide (*Crx) 25 Mg Capsule PO 25 mg Q6HR AMANDA Administration Enoxaparin Sodium 40 mg 12/07/24 09:00 12/08/24 08:37 Enoxaparin 40 Mg/0.4 Ml Syringe SUB-Q 40 mg DAILY AMANDA Administration Escitalopram Oxalate 10 mg 12/06/24 09:00 Escitalopram Oxalate 10 Mg Tablet PO DAILY [facility]ENDING [facility] TO [facility] Folic Acid 1 mg 12/06/24 10:00 12/08/24 08:38 Folic Acid 1 Mg Tablet PO 1 mg DAILY AMANDA Administration Levothyroxine Sodium 75 mcg 12/06/24 06:30 12/08/24 05:44 Levothyroxine Sodium 75 Mcg Tablet PO 75 mcg DAILY@0630 [facility] TO [facility] Administration Lorazepam 2 mg 12/06/24 09:58 Lorazepam Inj (*Crx) 2 Mg/Ml Vial IV PUSH Q2H PRN CIWA>8, HR>100, or DBP>100 Metoprolol Tartrate 50 mg 12/06/24 09:00 12/08/24 08:38 Metoprolol Tartrate 50 Mg Tab PO 50 mg Q12HR AMANDA Administration Multivitamins Therapeutic 1 tablet 12/06/24 09:00 12/08/24 08:38 Multivitamins Therapeutic Tab (*Bkc) PO 1 tablet DAILY PENDING [facility] TO [facility] Administration Nicotine 1 patch 12/06/24 02:50 12/08/24 08:39 Nicotine (*Pbkc) 21 Mg Patch TRANSDERM Not Given DAILY PENDING SALE TO [facility] Ondansetron HCl 4 mg 12/06/24 00:01 Ondansetron Inj 4 Mg/2 Ml Vial IV PUSH Q4H PRN Nausea Pantoprazole Sodium 40 mg 12/06/24 09:00 12/08/24 08:38 Pantoprazole 40 Mg Tablet PO 40 mg QAM AMANDA Administration Thiamine HCl 100 mg 12/06/24 10:00 12/08/24 08:38 Thiamine Hcl 100 Mg Tablet PO 100 mg DAILY AMANDA Administration Radiology Results: ITS Impressions Head CT 12/05/24 23:23 Impression: No acute intracranial hemorrhage or suspicious mass effect. Elbow X-Ray 12/05/24 23:45 IMPRESSION: Degenerative disease, without acute fracture. Labs Labs: Laboratory Tests 12/08/24 05:06 12/08/24 05:06 Calcium 9.4 Phosphorus 3.0 Magnesium 1.8 Total Bilirubin 1.5 H AST 38 ALT 18 Alkaline Phosphatase 52 Total Protein 7.1 Albumin 4.3
--- NOTE | 2024-12-08 13:26 | PM.PNNEP ---
Progress Note: A&P Assessment and Plan (1) Hyponatremia: Code(s): E87.1 - Hypo-osmolality and hyponatremia Status: Acute Assessment and Plan: appears to have stabilized chronic issues as appears to have been present since at least 2016 (from review of records) baseline sodium seems to run ~ 126 - 132mmol/L related to several issues: alcohol abuse on SSRI (escitalopram) thyroid disease PPI use excessive free water intake (known history) lung disease/COPD evaluation (previous and current hospitalization) noted: TSH okay cortisol lowish - consider stim test (if sodium does not improve) SPEP/UPEP negative urine electrolytes prerenal urine > serum osmolality on this and last admission head CT negative s/p 3% saline in ER (due to #2) s/p normal saline IVFs discontinued to prevent overcorrection goal of therapy is a rate of change of 6 - 8mmol/L in 24 hours (this was achieved) continue fluid restriction consider salt tabs + lasix if sodium declines further he was apparently on salt tablets before... follow trend of repeat sodium levels (2) Hypokalemia: Code(s): E87.6 - Hypokalemia Status: Acute Assessment and Plan: suspect due to total body store depletion from diminished oral intake low magnesium on admission played a role as well replete as needed follow magnesium (3) Altered mental status: Code(s): R41.82 - Altered mental status, unspecified Status: Acute Assessment and Plan: improvement noted noted on admission to ER per family -- similar symptom when he had an episode of acute hyponatremia on previous [facility] admission mentation seems back to baseline at this time (4) Hypertension: Code(s): I10 - Essential (primary) hypertension Status: Chronic Assessment and Plan: reasonable control on metoprolol follow trend of hemodynamics (5) COPD (chronic obstructive pulmonary disease): Code(s): J44.9 - Chronic obstructive pulmonary disease, unspecified Status: Chronic Assessment and Plan: no evidence of exacerbation PRN nebulizer treatments (6) Alcohol abuse: Code(s): F10.10 - Alcohol abuse, uncomplicated Status: Acute Assessment and Plan: as noted by history drinks 1 pint of whiskey daily CIWA protocol in place Librium 25 mg p.o. q.6 hours on thiamine and folic acid Will continue to follow. Subjective Date/time seen: 12/08/24 13:26 Interval history: Follow-up for acute on chronic hyponatremia. Sodium remains relatively stable with current therapy/interventions; mentation appears stable if not at baseline; no apparent distress voiced at this time; no other issues/events overnight or earlier this morning. Exam Narrative: General: WD/WN male in NAD Heart: normal S1 and S2; no rub Lungs: clear to auscultation Abdomen: soft, nontender, nondistended, positive bowel sounds Extremities: no cyanosis or clubbing; no edema Skin: warm and intact Objective Data Vital Signs Vital Signs: Vital Signs Temp Pulse Resp BP Pulse Ox O2 Del Method 12/08/24 12:03 Room Air 12/08/24 10:57 Room Air 12/08/24 08:38 82 12/08/24 08:03 66 12/08/24 08:03 66 20 97 Room Air 12/08/24 06:22 97.3 F L 79 20 123/60 97 12/08/24 05:11 97.3 F L 79 20 123/60 97 12/08/24 04:00 58 L 12/08/24 04:00 119/83 12/08/24 00:00 62 12/08/24 00:00 119/83 12/07/24 23:29 97.3 F L 72 16 119/83 96 12/07/24 20:40 76 12/07/24 20:00 62 12/07/24 20:00 Room Air 12/07/24 20:00 150/98 H Intake/Output Intake/Output: Intake & Output 12/05/24 12/06/24 12/07/24 12/08/24 23:59 23:59 23:59 23:59 Intake Total 150 1196.2 860 240 Output Total 1460 1820 350 Balance 150 -263.8 -960 -110 Meds/Results Medications: Active Medications Generic Name Dose Route Start Last Admin Trade Name Freq PRN Reason Stop Dose Admin Acetaminophen 650 mg 12/06/24 00:01 12/06/24 11:50 Acetaminophen 325 Mg Tablet PO 650 mg Q4H PRN Administration Mild Pain (1-3) or Fever Albuterol/Ipratropium 3 ml 12/06/24 11:02 Ipratropium 0.5 Mg/Albuterol Sulfate 2.5 Mg Ampul.Neb 3 Ml INHALATION Q6HRT PRN Wheezing and respiratory distress Aspirin 81 mg 12/06/24 09:00 12/08/24 08:38 Aspirin 81 Mg Enteric Tablet PO 81 mg DAILY [facility] Administration Chlordiazepoxide HCl 25 mg 12/06/24 12:00 12/08/24 17:16 Chlordiazepoxide (*Crx) 25 Mg Capsule PO 25 mg Q6HR AMANDA Administration Enoxaparin Sodium 40 mg 12/07/24 09:00 12/08/24 08:37 Enoxaparin 40 Mg/0.4 Ml Syringe SUB-Q 40 mg DAILY [facility] Administration Escitalopram Oxalate 10 mg 12/06/24 09:00 Escitalopram Oxalate 10 Mg Tablet PO DAILY AMANDA Folic Acid 1 mg 12/06/24 10:00 12/08/24 08:38 Folic Acid 1 Mg Tablet PO 1 mg DAILY [facility] Administration Levothyroxine Sodium 75 mcg 12/06/24 06:30 12/08/24 05:44 Levothyroxine Sodium 75 Mcg Tablet PO 75 mcg DAILY@0630 [facility] Administration Lorazepam 2 mg 12/06/24 09:58 Lorazepam Inj (*Crx) 2 Mg/Ml Vial IV PUSH Q2H PRN CIWA>8, HR>100, or DBP>100 Metoprolol Tartrate 50 mg 12/06/24 09:00 12/08/24 08:38 Metoprolol Tartrate 50 Mg Tab PO 50 mg Q12HR [facility] Administration Multivitamins Therapeutic 1 tablet 12/06/24 09:00 12/08/24 08:38 Multivitamins Therapeutic Tab (*Bkc) PO 1 tablet DAILY [facility] Administration Nicotine 1 patch 12/06/24 02:50 12/08/24 08:39 Nicotine (*Pbkc) 21 Mg Patch TRANSDERM Not Given DAILY [facility] Ondansetron HCl 4 mg 12/06/24 00:01 Ondansetron Inj 4 Mg/2 Ml Vial IV PUSH Q4H PRN Nausea Pantoprazole Sodium 40 mg 12/06/24 09:00 12/08/24 08:38 Pantoprazole 40 Mg Tablet PO 40 mg QAM [facility] Administration Thiamine HCl 100 mg 12/06/24 10:00 12/08/24 08:38 Thiamine Hcl 100 Mg Tablet PO 100 mg DAILY [facility] Administration Radiology Results: ITS Impressions Head CT 12/05/24 23:23 Impression: No acute intracranial hemorrhage or suspicious mass effect. Elbow X-Ray 12/05/24 23:45 IMPRESSION: Degenerative disease, without acute fracture. Labs Labs: Laboratory Tests 12/08/24 05:06 12/08/24 05:06 Calcium 9.4 Phosphorus 3.0 Magnesium 1.8 Total Bilirubin 1.5 H AST 38 ALT 18 Alkaline Phosphatase 52 Total Protein 7.1 Albumin 4.3
[2024-12-08 15:09] LABS: Osmolality, Serum 252 mOsmol/kg (280-301)
--- NOTE | 2024-12-08 15:34 | P.PNIM_ITS ---
Progress Note: A&P Assessment and Plan (1) Acute hyponatremia: Code(s): E87.1 - Hypo-osmolality and hyponatremia Status: Acute Assessment and Plan: Presented with acute to infusion, altered mental status. Polydypsia, sodium levels of 119 -Asymptomatic HypoNa -TSH normal 3.9 -if necessary Cortisol will be measured -Possible due to polydipsia -Euvolemia -Goal 6-8 meq/l in 24 hr period -Urine Na pending -urine osmolarity pending -patient was given IV fluids in the ED -started on normal saline at 75 mL/hour per with Nephrology -fluid stopped As per Nephrology recommendation -sodium levels this morning 124 -mentation is improved significantly -appreciate Nephrology following the patient -continue BMPs (2) Acute confusion: Code(s): R41.0 - Disorientation, unspecified Status: Acute Assessment and Plan: Patient presented with altered mental status, acute confusion, polydipsia. According the family these were similar symptoms when he had an episode of acute hypokalemia the last time he was admitted to the [facility]. -12/06: This morning patient is awake, alert, oriented, sodium levels have improved (3) Alcohol abuse: Code(s): F10.10 - Alcohol abuse, uncomplicated Status: Acute Assessment and Plan: Patient drinks 1 pint of whiskey daily, -CIWA protocol has been ordered -Librium 25 mg p.o. q.6 hours schedule -thiamine and folic acid (4) COPD (chronic obstructive pulmonary disease): Code(s): J44.9 - Chronic obstructive pulmonary disease, unspecified Status: Chronic Assessment and Plan: History of COPD, will add p.r.n. bronchodilators (5) Hypothyroid: Code(s): E03.9 - Hypothyroidism, unspecified Status: Acute Assessment and Plan: Continue levothyroxine (6) Hypertension: Code(s): I10 - Essential (primary) hypertension Status: Chronic Assessment and Plan: Continue metoprolol Subjective Date/time seen: 12/08/24 15:34 Interval history: No acute events reported. Patient mother does not want to take him back due to social issues. Will discuss with care coordination Review of Systems Review of Systems: All systems reviewed & are unremarkable except as noted in HPI and below ROS unobtainable: Yes unobtainable due to mental status Exam Narrative: General: Pleasant gentleman in no acute distress HEENT:? Pupils equal and reactive, sclera is clear, moist oral mucosa Neck:? Supple Respiratory:? Clear to auscultation bilaterally, no wheezing, adequate air entry Cardiac:? S1-S2 normal, regular rate and rhythm Abdomen:? Soft, nontender, nondistended, normoactive bowel sound Extremities:? No edema, palpable pedal pulses Neuro:? Patient is awake, alert, oriented to place, person, was able to tell me his date of , nonfocal, answers to questions appropriately and follows simple commands in all extremities Skin:? No skin lesions noted, skin is warm and dry Psych:? Normal mentation and affect Objective Data Vital Signs Vital Signs: Vital Signs - 24 hr 12/07/24 16:00 12/07/24 16:00 12/07/24 20:00 Temperature 97.6 F Pulse Rate 61 77 Respiratory Rate 18 Blood Pressure 150/98 H 150/98 H Pulse Oximetry 100 Oxygen Delivery 12/07/24 20:00 12/07/24 20:00 12/07/24 20:40 Temperature Pulse Rate 62 76 Respiratory Rate Blood Pressure Pulse Oximetry Oxygen Delivery Room Air 12/07/24 23:29 12/08/24 00:00 12/08/24 00:00 Temperature 97.3 F L Pulse Rate 72 62 Respiratory Rate 16 Blood Pressure 119/83 119/83 Pulse Oximetry 96 Oxygen Delivery 12/08/24 04:00 12/08/24 04:00 12/08/24 05:11 Temperature 97.3 F L Pulse Rate 58 L 79 Respiratory Rate 20 Blood Pressure 119/83 123/60 Pulse Oximetry 97 Oxygen Delivery 12/08/24 06:22 12/08/24 08:03 12/08/24 08:03 Temperature 97.3 F L Pulse Rate 79 66 66 Respiratory Rate 20 20 Blood Pressure 123/60 Pulse Oximetry 97 97 Oxygen Delivery Room Air 12/08/24 08:38 12/08/24 10:57 12/08/24 12:03 Temperature Pulse Rate 82 Respiratory Rate Blood Pressure Pulse Oximetry Oxygen Delivery Room Air Room Air 12/08/24 12:03 Temperature Pulse Rate 76 Respiratory Rate Blood Pressure Pulse Oximetry Oxygen Delivery Intake/Output Intake/Output: Intake & Output 12/05/24 12/06/24 12/07/24 12/08/24 23:59 23:59 23:59 23:59 Intake Total 150 1196.2 860 240 Output Total 1460 1820 350 Balance 150 -263.8 -960 -110 Meds/Results Medications: Active Medications Generic Name Dose Route Start Last Admin Trade Name Freq PRN Reason Stop Dose Admin Acetaminophen 650 mg 12/06/24 00:01 12/06/24 11:50 Acetaminophen 325 Mg Tablet PO 650 mg Q4H PRN Administration Mild Pain (1-3) or Fever Albuterol/Ipratropium 3 ml 12/06/24 11:02 Ipratropium 0.5 Mg/Albuterol Sulfate 2.5 Mg Ampul.Neb 3 Ml INHALATION Q6HRT PRN Wheezing and respiratory distress Aspirin 81 mg 12/06/24 09:00 12/08/24 08:38 Aspirin 81 Mg Enteric Tablet PO 81 mg DAILY AMANDA Administration Chlordiazepoxide HCl 25 mg 12/06/24 12:00 12/08/24 11:43 Chlordiazepoxide (*Crx) 25 Mg Capsule PO 25 mg Q6HR AMANDA Administration Enoxaparin Sodium 40 mg 12/07/24 09:00 12/08/24 08:37 Enoxaparin 40 Mg/0.4 Ml Syringe SUB-Q 40 mg DAILY AMANDA Administration Escitalopram Oxalate 10 mg 12/06/24 09:00 Escitalopram Oxalate 10 Mg Tablet PO DAILY AMANDA Folic Acid 1 mg 12/06/24 10:00 12/08/24 08:38 Folic Acid 1 Mg Tablet PO 1 mg DAILY AMANDA Administration Levothyroxine Sodium 75 mcg 12/06/24 06:30 12/08/24 05:44 Levothyroxine Sodium 75 Mcg Tablet PO 75 mcg DAILY@0630 AMANDA Administration Lorazepam 2 mg 12/06/24 09:58 Lorazepam Inj (*Crx) 2 Mg/Ml Vial IV PUSH Q2H PRN CIWA>8, HR>100, or DBP>100 Metoprolol Tartrate 50 mg 12/06/24 09:00 12/08/24 08:38 Metoprolol Tartrate 50 Mg Tab PO 50 mg Q12HR AMANDA Administration Multivitamins Therapeutic 1 tablet 12/06/24 09:00 12/08/24 08:38 Multivitamins Therapeutic Tab (*Bkc) PO 1 tablet DAILY [facility] Administration Nicotine 1 patch 12/06/24 02:50 12/08/24 08:39 Nicotine (*Pbkc) 21 Mg Patch TRANSDERM Not Given DAILY AMANDA Ondansetron HCl 4 mg 12/06/24 00:01 Ondansetron Inj 4 Mg/2 Ml Vial IV PUSH Q4H PRN Nausea Pantoprazole Sodium 40 mg 12/06/24 09:00 12/08/24 08:38 Pantoprazole 40 Mg Tablet PO 40 mg QAM AMANDA Administration Thiamine HCl 100 mg 12/06/24 10:00 12/08/24 08:38 Thiamine Hcl 100 Mg Tablet PO 100 mg DAILY AMANDA Administration Radiology Results: ITS Impressions Head CT 12/05/24 23:23 Impression: No acute intracranial hemorrhage or suspicious mass effect. Elbow X-Ray 12/05/24 23:45 IMPRESSION: Degenerative disease, without acute fracture. Labs Labs: Laboratory Results - last 24 hr 12/05/24 12/05/24 12/07/24 22:14 22:52 17:04 WBC RBC Hgb Hct MCV MCH MCHC RDW Plt Count MPV Immature Gran % (Auto) Neut % (Auto) Lymph % (Auto) [place] % (Auto) Eos % (Auto) Baso % (Auto) Lymph # (Auto) [place] # (Auto) Eos # (Auto) Baso # (Auto) Abs Immat Gran (auto) Absolute Neuts (auto) Absolute Nucleated RBC Nucleated RBC % Sodium 126 L Potassium 3.3 L Chloride 92 L Carbon Dioxide 25 Anion Gap 9 BUN 12 Creatinine 0.77 Estim Creat Clear Calc 87 Estimated GFR > 60 Glucose 91 POC Capillary Glucose Serum Osmolality 252 L Calcium 9.0 Phosphorus Magnesium Total Bilirubin AST ALT Alkaline Phosphatase Total Protein Albumin Urine Osmolality 346 12/07/24 12/07/24 12/08/24 18:03 23:24 05:06 WBC 10.4 H RBC 4.87 Hgb 16.2 Hct 48.1 MCV 98.8 MCH 33.3 MCHC 33.7 RDW 12.5 Plt Count 303 MPV 8.8 Immature Gran % (Auto) 1.6 H Neut % (Auto) 66.1 Lymph % (Auto) 14.1 L [place] % (Auto) 12.6 H Eos % (Auto) 4.2 Baso % (Auto) 1.4 H Lymph # (Auto) 1.46 [place] # (Auto) 1.3 H Eos # (Auto) 0.4 H Baso # (Auto) 0.2 H Abs Immat Gran (auto) 0.17 H Absolute Neuts (auto) 6.9 H Absolute Nucleated RBC 0.000 Nucleated RBC % 0.0 Sodium 127 L Potassium 3.9 Chloride 94 L Carbon Dioxide 26 Anion Gap 7 BUN 13 Creatinine 0.87 Estim Creat Clear Calc 77 Estimated GFR > 60 Glucose 82 POC Capillary Glucose 171 H 96 Serum Osmolality Calcium 9.4 Phosphorus 3.0 Magnesium 1.8 Total Bilirubin 1.5 H AST 38 ALT 18 Alkaline Phosphatase 52 Total Protein 7.1 Albumin 4.3 Urine Osmolality 12/08/24 12/08/24 05:41 12:05 WBC RBC Hgb Hct MCV MCH MCHC RDW Plt Count MPV Immature Gran % (Auto) Neut % (Auto) Lymph % (Auto) [place] % (Auto) Eos % (Auto) Baso % (Auto) Lymph # (Auto) [place] # (Auto) Eos # (Auto) Baso # (Auto) Abs Immat Gran (auto) Absolute Neuts (auto) Absolute Nucleated RBC Nucleated RBC % Sodium Potassium Chloride Carbon Dioxide Anion Gap BUN Creatinine Estim Creat Clear Calc Estimated GFR Glucose POC Capillary Glucose 86 106 H Serum Osmolality Calcium Phosphorus Magnesium Total Bilirubin AST ALT Alkaline Phosphatase Total Protein Albumin Urine Osmolality Quality VTE Prophylaxis VTE prophylaxis: pharmacologic ordered Hospitalist MIPS Advance Care Plan I have confirmed that the patient's Advanced Care Plan is present, code status is documented, or surrogate decision maker is listed in patient medical record.: Yes Medication Reconciliation I have utilized all available resources to obtain, update and review the patients current medications (includes all prescriptions, OTC, herbals, cannabis, and nutritional supplements).: Yes
[2024-12-09] VITALS (14 sets, daily range): BP systolic 90–140; BP diastolic 55–88; PULSE 59–99; RESP 16–18; TEMP 36.2–37.1; O2SAT 97–100
[2024-12-09 04:49] LABS: Hematocrit 49.9 % (42.0-52.0); Hemoglobin 16.4 g/dL (14.0-18.0); Immature Granulocyte Percent A 1.3 % (0-0.5); Lymphocytes Absolute Auto 1.18 K/mm3 (0.9-3.2); Mean Corpuscular HGB Conc 32.9 g/dl (32-36); Mean Corpuscular Hemoglobin 32.7 pg (26-34); Mean Corpuscular Volume 99.6 fl (80-100); Nucleated Red Blood Cells Absolute Auto 0.000 K/mm3 (0.0-0.012); Nucleated Red Blood Cells Perc 0.0 % (0.0-0.2); Platelet Count Result 293 k/mm3 (150-375); Red Blood Count 5.01 M/mm3 (4.6-6.20); White Blood Count 9.3 K/mm3 (4.5-10.0)
[2024-12-09 05:22] LABS: Alanine Aminotransferase 19 U/L (6-50); Albumin Level 4.2 g/dL (3.5-5.1); Alkaline Phosphatase 50 U/L (38-126); Anion Gap 11 mmol/L (4-12); Aspartate Amino Transferase 34 U/L (17-59); Bilirubin,Total 1.4 mg/dL (0.2-1.3); Blood Urea Nitrogen 18 mg/dL (9-20); Calcium 9.4 mg/dL (8.4-10.2); Carbon Dioxide 25 mmol/L (22-30); Chloride 95 mmol/L (98-107); Estimated CRCL calculation 62 ml/min; Estimated Glomerular Filt Rate > 60; Glucose 94 mg/dL (65-110); Magnesium 1.6 mg/dL (1.6-2.3); Potassium 3.5 mmol/L (3.4-5.0); Sodium 131 mmol/L (137-145); Total Protein 7.2 g/dL (6.3-8.2)
[2024-12-09] MEDS: chlordiazePOXIDE (*CRX) 25 MG CAPSULE PO ×4 (06:30→23:20)
[2024-12-09] MEDS: LEVOTHYROXINE SODIUM 75 MCG TABLET PO (06:30)
[2024-12-09] MEDS: ASPIRIN 81 MG ENTERIC TABLET PO (09:34)
[2024-12-09] MEDS: THIAMINE HCL 100 MG TABLET PO (09:34)
[2024-12-09] MEDS: FOLIC ACID 1 MG TABLET PO (09:34)
[2024-12-09] MEDS: MULTIVITAMINS THERAPEUTIC TAB (*BKC) 1 TABLET PO (09:34)
[2024-12-09] MEDS: PANTOPRAZOLE 40 MG TABLET PO (09:35)
[2024-12-09] MEDS: ENOXAPARIN 40 MG/0.4 ML SYRINGE SUB-Q (09:35)
--- NOTE | 2024-12-09 10:41 | P.PNNP_ITS ---
Progress Note: A&P Assessment and Plan (1) Hyponatremia: Code(s): E87.1 - Hypo-osmolality and hyponatremia Status: Acute Assessment and Plan: * Hyponatremia longstanding but now recent exacerbation. * chronic issues as appears to have been present since at least 2016 (from review of records) * baseline sodium seems to run ~ 126 - 132mmol/L * related to several issues: * alcohol abuse * on SSRI (escitalopram) * thyroid disease * PPI use * excessive free water intake (known history) * lung disease/COPD * evaluation (previous and current hospitalization) noted: * TSH okay cortisol lowish -will go ahead with stim test since it is chronic. * SPEP/UPEP negative * urine electrolytes prerenal * urine > serum osmolality on this and last admission * head CT negative * s/p 3% saline in ER (due to #2) * s/p normal saline IVFs * discontinued to prevent overcorrection * Currently treatment is 1000cc fluid restriction. * Goal of therapy is a rate of change of 6 - 8mmol/L in 24 hours (this was achieved) * He is at his baseline sodium now. We could probably increase the fluids to 1500 as it is unlikely he can maintain a 1000cc fluid restriction going forward as an outpatient * follow trend of repeat sodium levels (2) Hypokalemia: Code(s): E87.6 - Hypokalemia Status: Acute Assessment and Plan: * Magnesium and potassium are okay today (3) Altered mental status: Code(s): R41.82 - Altered mental status, unspecified Status: Acute Assessment and Plan: * improvement noted * noted on admission to ER * per family -- similar symptom when he had an episode of acute hyponatremia on previous [facility] admission * mentation seems back to baseline at this time (4) Hypertension: Code(s): I10 - Essential (primary) hypertension Status: Chronic Assessment and Plan: * Blood pressure is a bit soft. * on metoprolol. Will reduce to 25 b.i.d. * follow trend of hemodynamics (5) COPD (chronic obstructive pulmonary disease): Code(s): J44.9 - Chronic obstructive pulmonary disease, unspecified Status: Chronic Assessment and Plan: * no evidence of exacerbation * PRN nebulizer treatments (6) Alcohol abuse: Code(s): F10.10 - Alcohol abuse, uncomplicated Status: Acute Assessment and Plan: * as noted by history * drinks 1 pint of whiskey daily * [facility] protocol in place * Librium 25 mg p.o. q.6 hours * on thiamine and folic acid Will continue to follow. Subjective Date/time seen: 12/09/24 10:41 Interval history: Patient is feeling better. He wants to get up in out of bed. Tolerating fluid restrict Exam Narrative: General: WD/WN male in NAD Heart: normal S1 and S2; no rub or gallop Lungs: clear to auscultation Abdomen: soft, nontender, nondistended, positive bowel sounds Extremities: no cyanosis or clubbing; no edema Skin: No rash Objective Data Vital Signs Vital Signs: Vital Signs - 24 hr 12/08/24 10:57 12/08/24 12:03 12/08/24 12:03 Temperature Pulse Rate 76 Respiratory Rate Blood Pressure Pulse Oximetry Oxygen Delivery Room Air Room Air 12/08/24 16:00 12/08/24 16:03 12/08/24 20:00 Temperature 97.3 F L Pulse Rate 70 71 Respiratory Rate 16 Blood Pressure 138/89 129/87 Pulse Oximetry 96 Oxygen Delivery 12/08/24 20:00 12/08/24 20:00 12/08/24 20:12 Temperature 97.6 F Pulse Rate 65 77 67 Respiratory Rate 16 16 Blood Pressure 129/87 Pulse Oximetry 96 96 Oxygen Delivery Room Air 12/08/24 20:13 12/08/24 23:43 12/09/24 00:00 Temperature Pulse Rate 65 59 L Respiratory Rate Blood Pressure 129/87 Pulse Oximetry Oxygen Delivery 12/09/24 04:00 12/09/24 04:00 12/09/24 05:59 Temperature 97.3 F L Pulse Rate 60 62 Respiratory Rate 18 Blood Pressure 129/87 100/55 L Pulse Oximetry 97 Oxygen Delivery 12/09/24 08:00 12/09/24 08:09 12/09/24 09:33 Temperature 98.4 F Pulse Rate 75 71 67 Respiratory Rate 16 Blood Pressure 90/63 L Pulse Oximetry 100 Oxygen Delivery 12/09/24 09:40 Temperature Pulse Rate Respiratory Rate Blood Pressure Pulse Oximetry Oxygen Delivery Room Air Intake/Output Intake/Output: Intake & Output 12/06/24 12/07/24 12/08/24 12/09/24 23:59 23:59 23:59 23:59 Intake Total 1196.2 860 600 170 Output Total 1460 1820 800 200 Balance -263.8 -960 -200 -30 Meds/Results Medications: Active Medications Generic Name Dose Route Start Last Admin Trade Name Freq PRN Reason Stop Dose Admin Acetaminophen 650 mg 12/06/24 00:01 12/06/24 11:50 Acetaminophen 325 Mg Tablet PO 650 mg Q4H PRN Administration Mild Pain (1-3) or Fever Albuterol/Ipratropium 3 ml 12/06/24 11:02 Ipratropium 0.5 Mg/Albuterol Sulfate 2.5 Mg Ampul.Neb 3 Ml INHALATION Q6HRT PRN Wheezing and respiratory distress Aspirin 81 mg 12/06/24 09:00 12/09/24 09:34 Aspirin 81 Mg Enteric Tablet PO 81 mg DAILY AMANDA Administration Chlordiazepoxide HCl 25 mg 12/06/24 12:00 12/09/24 06:30 Chlordiazepoxide (*Crx) 25 Mg Capsule PO 25 mg Q6HR AMANDA Administration Enoxaparin Sodium 40 mg 12/07/24 09:00 12/09/24 09:35 Enoxaparin 40 Mg/0.4 Ml Syringe SUB-Q 40 mg DAILY AMANDA Administration Escitalopram Oxalate 10 mg 12/06/24 09:00 Escitalopram Oxalate 10 Mg Tablet PO DAILY AMANDA Folic Acid 1 mg 12/06/24 10:00 12/09/24 09:34 Folic Acid 1 Mg Tablet PO 1 mg DAILY AMANDA Administration Levothyroxine Sodium 75 mcg 12/06/24 06:30 12/09/24 06:30 Levothyroxine Sodium 75 Mcg Tablet PO 75 mcg DAILY@0630 AMANDA Administration Lorazepam 2 mg 12/06/24 09:58 Lorazepam Inj (*Crx) 2 Mg/Ml Vial IV PUSH Q2H PRN CIWA>8, HR>100, or DBP>100 Metoprolol Tartrate 50 mg 12/06/24 09:00 12/09/24 09:33 Metoprolol Tartrate 50 Mg Tab PO Not Given Q12HR AMANDA Multivitamins Therapeutic 1 tablet 12/06/24 09:00 12/09/24 09:34 Multivitamins Therapeutic Tab (*Bkc) PO 1 tablet DAILY AMANDA Administration Nicotine 1 patch 12/06/24 02:50 12/09/24 09:36 Nicotine (*Pbkc) 21 Mg Patch TRANSDERM Not Given DAILY AMANDA Ondansetron HCl 4 mg 12/06/24 00:01 Ondansetron Inj 4 Mg/2 Ml Vial IV PUSH Q4H PRN Nausea Pantoprazole Sodium 40 mg 12/06/24 09:00 12/09/24 09:35 Pantoprazole 40 Mg Tablet PO 40 mg QAM AMANDA Administration Thiamine HCl 100 mg 12/06/24 10:00 12/09/24 09:34 Thiamine Hcl 100 Mg Tablet PO 100 mg DAILY AMANDA Administration Radiology Results: ITS Impressions Head CT 12/05/24 23:23 Impression: No acute intracranial hemorrhage or suspicious mass effect. Elbow X-Ray 12/05/24 23:45 IMPRESSION: Degenerative disease, without acute fracture. Labs Labs: Laboratory Results - last 24 hr 12/05/24 12/05/24 12/08/24 22:14 22:52 12:05 WBC RBC Hgb Hct MCV MCH MCHC RDW Plt Count MPV Immature Gran % (Auto) Neut % (Auto) Lymph % (Auto) [place] % (Auto) Eos % (Auto) Baso % (Auto) Lymph # (Auto) [place] # (Auto) Eos # (Auto) Baso # (Auto) Abs Immat Gran (auto) Absolute Neuts (auto) Absolute Nucleated RBC Nucleated RBC % Sodium Potassium Chloride Carbon Dioxide Anion Gap BUN Creatinine Estim Creat Clear Calc Estimated GFR Glucose POC Capillary Glucose 106 H Serum Osmolality 252 L Calcium Phosphorus Magnesium Total Bilirubin AST ALT Alkaline Phosphatase Total Protein Albumin Urine Osmolality 346 12/08/24 12/08/24 12/09/24 17:06 23:40 04:29 WBC 9.3 RBC 5.01 Hgb 16.4 Hct 49.9 MCV 99.6 MCH 32.7 MCHC 32.9 RDW 12.5 Plt Count 293 MPV 8.7 Immature Gran % (Auto) 1.3 H Neut % (Auto) 69.2 Lymph % (Auto) 12.8 L [place] % (Auto) 10.3 H Eos % (Auto) 5.1 H Baso % (Auto) 1.3 H Lymph # (Auto) 1.18 [place] # (Auto) 1.0 H Eos # (Auto) 0.5 H Baso # (Auto) 0.1 Abs Immat Gran (auto) 0.12 H Absolute Neuts (auto) 6.4 Absolute Nucleated RBC 0.000 Nucleated RBC % 0.0 Sodium 131 L Potassium 3.5 Chloride 95 L Carbon Dioxide 25 Anion Gap 11 BUN 18 Creatinine 1.11 Estim Creat Clear Calc 62 Estimated GFR > 60 Glucose 94 POC Capillary Glucose 91 99 Serum Osmolality Calcium 9.4 Phosphorus 3.8 Magnesium 1.6 Total Bilirubin 1.4 H AST 34 ALT 19 Alkaline Phosphatase 50 Total Protein 7.2 Albumin 4.2 Urine Osmolality 12/09/24 06:04 WBC RBC Hgb Hct MCV MCH MCHC RDW Plt Count MPV Immature Gran % (Auto) Neut % (Auto) Lymph % (Auto) [place] % (Auto) Eos % (Auto) Baso % (Auto) Lymph # (Auto) [place] # (Auto) Eos # (Auto) Baso # (Auto) Abs Immat Gran (auto) Absolute Neuts (auto) Absolute Nucleated RBC Nucleated RBC % Sodium Potassium Chloride Carbon Dioxide Anion Gap BUN Creatinine Estim Creat Clear Calc Estimated GFR Glucose POC Capillary Glucose 88 Serum Osmolality Calcium Phosphorus Magnesium Total Bilirubin AST ALT Alkaline Phosphatase Total Protein Albumin Urine Osmolality
[2024-12-09] MEDS: COSYNTROPIN 0.25 MG/ML VIAL IV PUSH (11:10)
--- NOTE | 2024-12-09 11:21 | P.DS_ITS ---
DS: Admitting Diagnosis Discharge Date 12/09/2024 Admitting Diagnosis Hyponatremia DS: Discharge Diagnosis Discharge Diagnosis (1) Acute hyponatremia: Code(s): E87.1 - Hypo-osmolality and hyponatremia Status: Acute Assessment and Plan: Presented with acute to infusion, altered mental status. Polydypsia, sodium levels of 119 -Asymptomatic HypoNa -TSH normal 3.9 -if necessary Cortisol will be measured -Possible due to polydipsia -Euvolemia -Goal 6-8 meq/l in 24 hr period -Urine Na pending -urine osmolarity pending -patient was given IV fluids in the ED -started on normal saline at 75 mL/hour per with Nephrology -fluid stopped As per Nephrology recommendation -sodium levels this morning 124 -mentation is improved significantly -appreciate Nephrology following the patient -continue BMPs (2) Acute confusion: Code(s): R41.0 - Disorientation, unspecified Status: Acute Assessment and Plan: Patient presented with altered mental status, acute confusion, polydipsia. According the family these were similar symptoms when he had an episode of acute hypokalemia the last time he was admitted to the [facility]. -12/06: This morning patient is awake, alert, oriented, sodium levels have improved (3) Alcohol abuse: Code(s): F10.10 - Alcohol abuse, uncomplicated Status: Acute Assessment and Plan: Patient drinks 1 pint of whiskey daily, -CIWA protocol has been ordered -Librium 25 mg p.o. q.6 hours schedule -thiamine and folic acid (4) COPD (chronic obstructive pulmonary disease): Code(s): J44.9 - Chronic obstructive pulmonary disease, unspecified Status: Chronic Assessment and Plan: History of COPD, will add p.r.n. bronchodilators (5) Hypothyroid: Code(s): E03.9 - Hypothyroidism, unspecified Status: Acute Assessment and Plan: Continue levothyroxine (6) Hypertension: Code(s): I10 - Essential (primary) hypertension Status: Chronic Assessment and Plan: Continue metoprolol DS: Summary Hospital Course Hospital Course: Emeka Velazco is a 64 year old male with past medical history of hypothyroidism, throat cancer status post radiation therapy, history of polydipsia, alcohol abuse, acute on chronic hyponatremia, hyperlipidemia, presented the ED on 12/05/2024 with complains of nausea, vomiting, confusion that started 24 hours prior to arrival in the ED. patient also complained of right arm injury will try and reach out from bottle and scar. Patient to Tylenol and ibuprofen for his right elbow injury. Patient has been drinking a lot of water due to having dry mouth chronically and also has a history of drinking a pint of whiskey per day. His family noted that he was severely confused, not acting himself and drinking a lot of water which is not usual for him. These symptoms according the family resemble the last time he was here at [facility] hyponatremia. Patient was not noted to be any acute physical respiratory distress in the ER. Hemodynamically was stable, O2 sats were good on room air. In the ER patient's WBC count was 13.8, hemoglobin 17.7, platelets 332. Sodium 119, potassium 3.0, chloride 85, CO2 26, BUN 16, creatinine 1.03, blood sugars 124, LFTs are within normal limits. UA was unremarkable. Urine drug screen was positive for cannabinoids, alcohol levels < 10, acetaminophen < 10. CT brain with no acute intracranial hemorrhage or suspicious mass effectRight elbow x-ray degenerative disease without acute fracture.Patient was transferred to the ICU for further management, nephrology was consulted Patient was later transfer from ICU on 12/06. In the ED patient received 3% normal saline and later 0.9 % normal saline drip was stopped by Nephrology. Patient's sodium has been stabilized. Patient lives with his mother. 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 Patient follows up with oncologist but last few years didnt follow up . Before the hospitalization patient injured his left arm by lifting 2L coke bottle and was pain medication including ibuprofen. Patient was drinking lot of water as well. He was so weak and his mother insisted to call 911. 12/09: Denies any chest pain, shortness of breath, abdominal pain, nausea, vomiting. Hemodynamically stable, afebrile, adequate urine output. Sodium levels 131 this morning. Nephrology agrees to discharge. Previously his mother reported she was not able to take him due to social issues but care coordination talk to her and she is willing to take him back. On the day of discharge, the patient was seen and examined. Vital signs were stable. Physical exam were stable and labs were reviewed at length. Discharge instructions, medications, and follow-up appointments were discussed with the patient at length and all day questions were answered. ER warnings were given. Status at Discharge Cognitive/behavioral status at discharge: Stable Time Spent with Patient Time attestation: Total time spent providing and/or coordinating discharge services: 45 minutes Exam Narrative: General: Pleasant gentleman in no acute distress HEENT:? Pupils equal and reactive, sclera is clear, moist oral mucosa Neck:? Supple Respiratory:? Clear to auscultation bilaterally, no wheezing, adequate air entry Cardiac:? S1-S2 normal, regular rate and rhythm Abdomen:? Soft, nontender, nondistended, normoactive bowel sound Extremities:? No edema, palpable pedal pulses Neuro:? Patient is awake, alert, oriented to place, person, was able to tell me his date of , nonfocal, answers to questions appropriately and follows simple commands in all extremities Skin:? No skin lesions noted, skin is warm and dry Psych:? Normal mentation and affect DS: Data Data Completed and Pending Labs on day of discharge: Labs from last 24 hours 12/09/24 12/09/24 12/08/24 06:04 04:29 23:40 WBC 9.3 RBC 5.01 Hgb 16.4 Hct 49.9 MCV 99.6 MCH 32.7 MCHC 32.9 RDW 12.5 Plt Count 293 MPV 8.7 Immature Gran % (Auto) 1.3 H Neut % (Auto) 69.2 Lymph % (Auto) 12.8 L [place] % (Auto) 10.3 H Eos % (Auto) 5.1 H Baso % (Auto) 1.3 H Lymph # (Auto) 1.18 [place] # (Auto) 1.0 H Eos # (Auto) 0.5 H Baso # (Auto) 0.1 Abs Immat Gran (auto) 0.12 H Absolute Neuts (auto) 6.4 Absolute Nucleated RBC 0.000 Nucleated RBC % 0.0 Sodium 131 L Potassium 3.5 Chloride 95 L Carbon Dioxide 25 Anion Gap 11 BUN 18 Creatinine 1.11 Estim Creat Clear Calc 62 Estimated GFR > 60 Glucose 94 POC Capillary Glucose 88 99 Serum Osmolality Calcium 9.4 Phosphorus 3.8 Magnesium 1.6 Total Bilirubin 1.4 H AST 34 ALT 19 Alkaline Phosphatase 50 Total Protein 7.2 Albumin 4.2 Cortisol Baseline Pending Urine Osmolality 0812/08/24 12/05/24 17:06 12:05 22:52 WBC RBC Hgb Hct MCV MCH MCHC RDW Plt Count MPV Immature Gran % (Auto) Neut % (Auto) Lymph % (Auto) [place] % (Auto) Eos % (Auto) Baso % (Auto) Lymph # (Auto) [place] # (Auto) Eos # (Auto) Baso # (Auto) Abs Immat Gran (auto) Absolute Neuts (auto) Absolute Nucleated RBC Nucleated RBC % Sodium Potassium Chloride Carbon Dioxide Anion Gap BUN Creatinine Estim Creat Clear Calc Estimated GFR Glucose POC Capillary Glucose 91 106 H Serum Osmolality Calcium Phosphorus Magnesium Total Bilirubin AST ALT Alkaline Phosphatase Total Protein Albumin Cortisol Baseline Urine Osmolality 346 12/05/24 22:14 WBC RBC Hgb Hct MCV MCH MCHC RDW Plt Count MPV Immature Gran % (Auto) Neut % (Auto) Lymph % (Auto) [place] % (Auto) Eos % (Auto) Baso % (Auto) Lymph # (Auto) [place] # (Auto) Eos # (Auto) Baso # (Auto) Abs Immat Gran (auto) Absolute Neuts (auto) Absolute Nucleated RBC Nucleated RBC % Sodium Potassium Chloride Carbon Dioxide Anion Gap BUN Creatinine Estim Creat Clear Calc Estimated GFR Glucose POC Capillary Glucose Serum Osmolality 252 L Calcium Phosphorus Magnesium Total Bilirubin AST ALT Alkaline Phosphatase Total Protein Albumin Cortisol Baseline Urine Osmolality Imaging Radiologist's impression: ITS Impressions Head CT 12/05/24 23:23 Impression: No acute intracranial hemorrhage or suspicious mass effect. Elbow X-Ray 12/05/24 23:45 IMPRESSION: Degenerative disease, without acute fracture. Discharge Plan Discharge Attending physician on discharge: Enrike Zazueta Consulting providers: Alma Acevedo; Toby Hair Discharging Clinician: Enrike Zazueta Anticipated Discharge Date/Time: 12/09/24 11:40 Patient Disposition: Home Activity: as tolerated Diet: regular and other - see discharge instructions Discharge Instructions: Do not drink excess fluid. Do not drink more than 1L in a day Check the sodium level in a week. Order CMP. Please discuss results with PCP or Nephrology Please follow-up with PCP, oncology and Nephrology In the event of dizziness other concerning symptoms please visit nearby ED Patient Instructions: Antibiotic Form, Heart Failure (DC), Hyponatremia (DC), Hinojosa Catheter Placement and Care (DC), Abuse of Alcohol (DC) Patient Language: French Stand Alone Forms: General Discharge Information Follow-up/Referrals: Godwin Rubin MD [Primary Care Provider] - Alma Acevedo MD [Physician] - (Sodium follow-up) Discharge Medications: New thiamine HCl (vitamin B1) [Vitamin B-1] 100 mg Tablet 100 mg PO DAILY Qty: 30 0RF folic acid 1 mg Tablet 1 mg PO DAILY Qty: 30 0RF Continued aspirin 81 mg tablet,delayed release (DR/EC) 81 mg PO DAILY multivitamin Tablet 1 tablet PO DAILY metoprolol tartrate 50 mg tablet 50 mg PO DAILY escitalopram oxalate 10 mg tablet 10 mg PO DAILY Qty: 90 1RF Rx Instructions: TAKE 1 TABLET BY MOUTH DAILY levothyroxine 75 mcg tablet See Rx Instructions .ROUTE .COMPLEX Qty: 90 1RF Dose Instruction: TAKE 1 TABLET BY MOUTH DAILY Rx Instructions: TAKE 1 TABLET BY MOUTH DAILY pantoprazole [Protonix] 40 mg tablet,delayed release (DR/EC) 40 mg PO QAM Qty: 90 2RF Other Ambulatory Orders: Comprehensive Metabolic Panel (Routine) Timeframe: 1 Week Location: Determined by Patient Ordered By: Enrike Zazueta Date of admission: 12/06/24 00:20 Primary Care Provider: Godwin Rubin Admitting Provider: Enrike Zauzeta Attending physician on admission: Enrike Zazueta Condition: Guarded Prognosis
[2024-12-09 13:14] LABS: Cortisol 60 Minute 40.00 ug/dL
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
--- NOTE | 2024-12-09 17:35 | P.PNIM_ITS ---
Progress Note: A&P Assessment and Plan (1) Acute hyponatremia: Code(s): E87.1 - Hypo-osmolality and hyponatremia Status: Acute Assessment and Plan: Presented with acute to infusion, altered mental status. Polydypsia, sodium levels of 119 -Asymptomatic HypoNa -TSH normal 3.9 -if necessary Cortisol will be measured -Possible due to polydipsia -Euvolemia -Goal 6-8 meq/l in 24 hr period -Urine Na pending -urine osmolarity pending -patient was given IV fluids in the ED -started on normal saline at 75 mL/hour per with Nephrology -fluid stopped As per Nephrology recommendation -sodium levels this morning 124 -mentation is improved significantly -appreciate Nephrology following the patient -continue BMPs (2) Acute confusion: Code(s): R41.0 - Disorientation, unspecified Status: Acute Assessment and Plan: Patient presented with altered mental status, acute confusion, polydipsia. According the family these were similar symptoms when he had an episode of acute hypokalemia the last time he was admitted to the [facility]. -12/06: This morning patient is awake, alert, oriented, sodium levels have improved (3) Alcohol abuse: Code(s): F10.10 - Alcohol abuse, uncomplicated Status: Acute Assessment and Plan: Patient drinks 1 pint of whiskey daily, -CIWA protocol has been ordered -Librium 25 mg p.o. q.6 hours schedule -thiamine and folic acid (4) COPD (chronic obstructive pulmonary disease): Code(s): J44.9 - Chronic obstructive pulmonary disease, unspecified Status: Chronic Assessment and Plan: History of COPD, will add p.r.n. bronchodilators (5) Hypothyroid: Code(s): E03.9 - Hypothyroidism, unspecified Status: Acute Assessment and Plan: Continue levothyroxine (6) Hypertension: Code(s): I10 - Essential (primary) hypertension Status: Chronic Assessment and Plan: Continue metoprolol (7) Suicidal thoughts: Code(s): R45.851 - Suicidal ideations Status: Acute Assessment and Plan: Patient was medically stable today to be discharged, but after placing the discharge order, the patient reported suicidal ideation. Requesting cyanide so that he can take his life. He denies harming others. Discussed with the Cylinder Steamer, who agrees to transfer the patient to the ICU as a medical patient. Consulted crisis team for suicidal ideation. Subjective Date/time seen: 12/09/24 17:35 Interval history: Patient was medically stable today to be discharged, but after placing the discharge order, the patient reported suicidal ideation. Requesting cyanide so that he can take his life. He denies harming others. Discussed with the Cylinder Steamer, who agrees to transfer the patient to the ICU as a medical patient. Consulted crisis team for suicidal ideation. Review of Systems Review of Systems: All systems reviewed & are unremarkable except as noted in HPI and below ROS unobtainable: Yes unobtainable due to mental status Exam Narrative: General: Pleasant gentleman in no acute distress HEENT:? Pupils equal and reactive, sclera is clear, moist oral mucosa Neck:? Supple Respiratory:? Clear to auscultation bilaterally, no wheezing, adequate air entry Cardiac:? S1-S2 normal, regular rate and rhythm Abdomen:? Soft, nontender, nondistended, normoactive bowel sound Extremities:? No edema, palpable pedal pulses Neuro:? Patient is awake, alert, oriented to place, person, was able to tell me his date of , nonfocal, answers to questions appropriately and follows simp le commands in all extremities Skin:? No skin lesions noted, skin is warm and dry Psych:? Normal mentation and affect Objective Data Vital Signs Vital Signs: Vital Signs - 24 hr 12/08/24 20:00 12/08/24 20:00 12/08/24 20:00 Temperature Pulse Rate 65 77 Respiratory Rate 16 Blood Pressure 129/87 Pulse Oximetry 96 Oxygen Delivery Room Air 12/08/24 20:12 12/08/24 20:13 12/08/24 23:43 Temperature 97.6 F Pulse Rate 67 65 Respiratory Rate 16 Blood Pressure 129/87 129/87 Pulse Oximetry 96 Oxygen Delivery 12/09/24 00:00 12/09/24 04:00 12/09/24 04:00 Temperature Pulse Rate 59 L 60 Respiratory Rate Blood Pressure 129/87 Pulse Oximetry Oxygen Delivery 12/09/24 05:59 12/09/24 08:00 12/09/24 08:09 Temperature 97.3 F L 98.4 F Pulse Rate 62 75 71 Respiratory Rate 18 16 Blood Pressure 100/55 L 90/63 L Pulse Oximetry 97 100 Oxygen Delivery 12/09/24 09:33 08/16/25 09:40 12/09/24 12:00 Temperature Pulse Rate 67 81 Respiratory Rate Blood Pressure Pulse Oximetry Oxygen Delivery Room Air 12/09/24 13:57 Temperature 97.1 F L Pulse Rate 72 Respiratory Rate 16 Blood Pressure 135/77 Pulse Oximetry 100 Oxygen Delivery Intake/Output Intake/Output: Intake & Output 12/06/24 12/07/24 12/08/24 12/09/24 23:59 23:59 23:59 23:59 Intake Total 1196.2 860 600 650 Output Total 1460 1820 800 200 Balance -263.8 -960 -200 450 Meds/Results Medications: Active Medications Generic Name Dose Route Start Last Admin Trade Name Freq PRN Reason Stop Dose Admin Acetaminophen 650 mg 12/06/24 00:01 12/06/24 11:50 Acetaminophen 325 Mg Tablet PO 650 mg Q4H PRN Administration Mild Pain (1-3) or Fever Albuterol/Ipratropium 3 ml 12/06/24 11:02 Ipratropium 0.5 Mg/Albuterol Sulfate 2.5 Mg Ampul.Neb 3 Ml INHALATION Q6HRT PRN Wheezing and respiratory distress Aspirin 81 mg 12/06/24 09:00 12/09/24 09:34 Aspirin 81 Mg Enteric Tablet PO 81 mg DAILY AMANDA Administration Chlordiazepoxide HCl 25 mg 12/06/24 12:00 12/09/24 11:10 Chlordiazepoxide (*Crx) 25 Mg Capsule PO 25 mg Q6HR AMANDA Administration Enoxaparin Sodium 40 mg 12/07/24 09:00 12/09/24 09:35 Enoxaparin 40 Mg/0.4 Ml Syringe SUB-Q 40 mg DAILY AMANDA Administration Escitalopram Oxalate 10 mg 12/06/24 09:00 Escitalopram Oxalate 10 Mg Tablet PO DAILY AMANDA Folic Acid 1 mg 12/06/24 10:00 12/09/24 09:34 Folic Acid 1 Mg Tablet PO 1 mg DAILY AMANDA Administration Levothyroxine Sodium 75 mcg 12/06/24 06:30 12/09/24 06:30 Levothyroxine Sodium 75 Mcg Tablet PO 75 mcg DAILY@0630 AMANDA Administration Lorazepam 2 mg 12/06/24 09:58 Lorazepam Inj (*Crx) 2 Mg/Ml Vial IV PUSH Q2H PRN CIWA>8, HR>100, or DBP>100 Metoprolol Tartrate 50 mg 12/06/24 09:00 12/09/24 09:33 Metoprolol Tartrate 50 Mg Tab PO Not Given Q12HR AMANDA Multivitamins Therapeutic 1 tablet 12/06/24 09:00 12/09/24 09:34 Multivitamins Therapeutic Tab (*Bkc) PO 1 tablet DAILY AMANDA Administration Nicotine 1 patch 12/06/24 02:50 12/09/24 09:36 Nicotine (*Pbkc) 21 Mg Patch TRANSDERM Not Given DAILY AMANDA Ondansetron HCl 4 mg 12/06/24 00:01 Ondansetron Inj 4 Mg/2 Ml Vial IV PUSH Q4H PRN Nausea Pantoprazole Sodium 40 mg 12/06/24 09:00 12/09/24 09:35 Pantoprazole 40 Mg Tablet PO 40 mg QAM AMANDA Administration Thiamine HCl 100 mg 12/06/24 10:00 12/09/24 09:34 Thiamine Hcl 100 Mg Tablet PO 100 mg DAILY AMANDA Administration Radiology Results: ITS Impressions Head CT 12/05/24 23:23 Impression: No acute intracranial hemorrhage or suspicious mass effect. Elbow X-Ray 12/05/24 23:45 IMPRESSION: Degenerative disease, without acute fracture. Labs Labs: Laboratory Results - last 24 hr 12/08/24 12/09/24 12/09/24 23:40 04:29 06:04 WBC 9.3 RBC 5.01 Hgb 16.4 Hct 49.9 MCV 99.6 MCH 32.7 MCHC 32.9 RDW 12.5 Plt Count 293 MPV 8.7 Immature Gran % (Auto) 1.3 H Neut % (Auto) 69.2 Lymph % (Auto) 12.8 L [place] % (Auto) 10.3 H Eos % (Auto) 5.1 H Baso % (Auto) 1.3 H Lymph # (Auto) 1.18 [place] # (Auto) 1.0 H Eos # (Auto) 0.5 H Baso # (Auto) 0.1 Abs Immat Gran (auto) 0.12 H Absolute Neuts (auto) 6.4 Absolute Nucleated RBC 0.000 Nucleated RBC % 0.0 Sodium 131 L Potassium 3.5 Chloride 95 L Carbon Dioxide 25 Anion Gap 11 BUN 18 Creatinine 1.11 Estim Creat Clear Calc 62 Estimated GFR > 60 Glucose 94 POC Capillary Glucose 99 88 Calcium 9.4 Phosphorus 3.8 Magnesium 1.6 Total Bilirubin 1.4 H AST 34 ALT 19 Alkaline Phosphatase 50 Total Protein 7.2 Albumin 4.2 Cortisol Baseline 15.60 Cortisol Resp 30 Min Cortisol Resp 60 Min 12/09/24 12/09/24 12/09/24 11:43 11:53 12:13 WBC RBC Hgb Hct MCV MCH MCHC RDW Plt Count MPV Immature Gran % (Auto) Neut % (Auto) Lymph % (Auto) [place] % (Auto) Eos % (Auto) Baso % (Auto) Lymph # (Auto) [place] # (Auto) Eos # (Auto) Baso # (Auto) Abs Immat Gran (auto) Absolute Neuts (auto) Absolute Nucleated RBC Nucleated RBC % Sodium Potassium Chloride Carbon Dioxide Anion Gap BUN Creatinine Estim Creat Clear Calc Estimated GFR Glucose POC Capillary Glucose 128 H Calcium Phosphorus Magnesium Total Bilirubin AST ALT Alkaline Phosphatase Total Protein Albumin Cortisol Baseline Cortisol Resp 30 Min 28.60 Cortisol Resp 60 Min 40.00 Quality VTE Prophylaxis VTE prophylaxis: pharmacologic ordered Hospitalist [facility] Advance Care Plan I have confirmed that the patient's Advanced Care Plan is present, code status is documented, or surrogate decision maker is listed in patient medical record.: Yes Medication Reconciliation I have utilized all available resources to obtain, update and review the patients current medications (includes all prescriptions, OTC, herbals, cannabis, and nutritional supplements).: Yes
[2024-12-09 19:17] LABS: Influenza A QL RT-PCR Negative (Negative); Influenza B QL RT-PCR Negative (Negative); RSV RNA, RT-PCR Negative (Negative); SARS-CoV-2 RNA PCR Negative (Negative)
[2024-12-09] MEDS: METOPROLOL TARTRATE 50 MG TAB PO (20:22)
--- NOTE | 2024-12-09 21:30 | PC.NURSE ---
This patient, Emeka Velazco, was received from [[facility] ] on 12/09/24 at 2000. Patient/family oriented to unit policies and routines
[2024-12-10] VITALS (9 sets, daily range): BP systolic 124–140; BP diastolic 62–88; PULSE 68–82; RESP 12–18; TEMP 36.4–36.7; O2SAT 91–99
[2024-12-10] MEDS: LEVOTHYROXINE SODIUM 75 MCG TABLET PO (06:13)
[2024-12-10] MEDS: chlordiazePOXIDE (*CRX) 25 MG CAPSULE PO ×3 (06:13→20:21)
[2024-12-10 07:26] LABS: Alanine Aminotransferase 18 U/L (6-50); Albumin Level 4.2 g/dL (3.5-5.1); Alkaline Phosphatase 47 U/L (38-126); Anion Gap 9 mmol/L (4-12); Aspartate Amino Transferase 36 U/L (17-59); Bilirubin,Total 1.5 mg/dL (0.2-1.3); Blood Urea Nitrogen 19 mg/dL (9-20); Calcium 9.3 mg/dL (8.4-10.2); Carbon Dioxide 26 mmol/L (22-30); Chloride 96 mmol/L (98-107); Estimated CRCL calculation 67 ml/min; Estimated Glomerular Filt Rate > 60; Glucose 102 mg/dL (65-110); Hematocrit 48.9 % (42.0-52.0); Hemoglobin 16.9 g/dL (14.0-18.0); Immature Granulocyte Percent A 0.9 % (0-0.5); Lymphocytes Absolute Auto 1.43 K/mm3 (0.9-3.2); Magnesium 1.6 mg/dL (1.6-2.3); Mean Corpuscular HGB Conc 34.6 g/dl (32-36); Mean Corpuscular Hemoglobin 33.5 pg (26-34); Mean Corpuscular Volume 96.8 fl (80-100); Nucleated Red Blood Cells Absolute Auto 0.000 K/mm3 (0.0-0.012); Nucleated Red Blood Cells Perc 0.0 % (0.0-0.2); Platelet Count Result 317 k/mm3 (150-375); Potassium 3.2 mmol/L (3.4-5.0); Red Blood Count 5.05 M/mm3 (4.6-6.20); Sodium 131 mmol/L (137-145); Total Protein 7.1 g/dL (6.3-8.2); White Blood Count 8.6 K/mm3 (4.5-10.0)
[2024-12-10] MEDS: FOLIC ACID 1 MG TABLET PO (08:57)
[2024-12-10] MEDS: ENOXAPARIN 40 MG/0.4 ML SYRINGE SUB-Q (08:57)
[2024-12-10] MEDS: ASPIRIN 81 MG ENTERIC TABLET PO (08:57)
[2024-12-10] MEDS: MULTIVITAMINS THERAPEUTIC TAB (*BKC) 1 TABLET PO (08:58)
[2024-12-10] MEDS: METOPROLOL TARTRATE 50 MG TAB PO ×2 (08:58→20:21)
[2024-12-10] MEDS: THIAMINE HCL 100 MG TABLET PO (08:58)
[2024-12-10] MEDS: PANTOPRAZOLE 40 MG TABLET PO (08:58)
--- NOTE | 2024-12-10 11:03 | P.PNNP_ITS ---
Progress Note: A&P Assessment and Plan (1) Hyponatremia: Code(s): E87.1 - Hypo-osmolality and hyponatremia Status: Acute Assessment and Plan: * Hyponatremia longstanding but now recent exacerbation. * chronic issues as appears to have been present since at least 2016 (from review of records) * baseline sodium seems to run ~ 126 - 132mmol/L * related to several issues: * alcohol abuse * on SSRI (escitalopram) * thyroid disease * PPI use * excessive free water intake (known history) * lung disease/COPD * evaluation (previous and current hospitalization) noted: * TSH okay cortisol lowish -will go ahead with stim test since it is chronic. * SPEP/UPEP negative * urine electrolytes prerenal * urine > serum osmolality on this and last admission * head CT negative * s/p 3% saline in ER (due to #2) * s/p normal saline IVFs * discontinued to prevent overcorrection * Currently treatment is 1500cc fluid restriction. * Sodium level stable. (2) Hypokalemia: Code(s): E87.6 - Hypokalemia Status: Acute Assessment and Plan: * Magnesium and potassium are okay today (3) Altered mental status: Code(s): R41.82 - Altered mental status, unspecified Status: Acute Assessment and Plan: * improvement noted * noted on admission to ER * per family -- similar symptom when he had an episode of acute hyponatremia on previous [facility] admission * Mentation seems at baseline. (4) Hypertension: Code(s): I10 - Essential (primary) hypertension Status: Chronic Assessment and Plan: * Blood pressure is a bit soft. * on metoprolol. Will reduce to 25 b.i.d. * follow trend of hemodynamics (5) COPD (chronic obstructive pulmonary disease): Code(s): J44.9 - Chronic obstructive pulmonary disease, unspecified Status: Chronic Assessment and Plan: * no evidence of exacerbation * PRN nebulizer treatments (6) Alcohol abuse: Code(s): F10.10 - Alcohol abuse, uncomplicated Status: Acute Assessment and Plan: * as noted by history * drinks 1 pint of whiskey daily * CIWA protocol in place * Librium 25 mg p.o. q.6 hours * on thiamine and folic acid Will continue to follow. Subjective Date/time seen: 12/10/24 11:03 Interval history: patient is alert. No chest pain or shortness of breath held over because of suicidal ideation yesterday afternoon. Exam Narrative: General: WD/WN male in NAD Heart: normal S1 and S2; no rub or gallop Lungs: clear to auscultation Abdomen: soft, nontender, nondistended, positive bowel sounds Extremities: no cyanosis or clubbing; no edema Skin: No rash Objective Data Vital Signs Vital Signs: Vital Signs - 24 hr 12/09/24 12:00 12/09/24 13:57 12/09/24 16:00 Temperature 97.1 F L Pulse Rate 81 72 99 Respiratory Rate 16 Blood Pressure 135/77 Pulse Oximetry 100 Oxygen Delivery 12/09/24 20:00 12/09/24 20:00 12/09/24 20:15 Temperature 98.7 F Pulse Rate 84 70 Respiratory Rate 16 16 Blood Pressure 140/88 140/88 Pulse Oximetry 99 99 Oxygen Delivery Room Air 12/09/24 20:22 12/09/24 20:35 12/09/24 23:27 Temperature Pulse Rate 84 Respiratory Rate Blood Pressure 140/88 Pulse Oximetry 99 Oxygen Delivery Room Air 12/09/24 23:27 12/10/24 04:00 12/10/24 08:00 Temperature Pulse Rate 76 76 Respiratory Rate 16 Blood Pressure 140/88 Pulse Oximetry 99 Oxygen Delivery Room Air 12/10/24 08:25 12/10/24 08:58 Temperature 97.5 F L Pulse Rate 75 79 Respiratory Rate 12 Blood Pressure 133/73 Pulse Oximetry 91 Oxygen Delivery Intake/Output Intake/Output: Intake & Output 12/07/24 12/08/24 12/09/24 12/10/24 23:59 23:59 23:59 23:59 Intake Total 860 600 650 440 Output Total 1820 800 500 300 Balance -960 -200 150 140 Meds/Results Medications: Active Medications Generic Name Dose Route Start Last Admin Trade Name Billy PRN Reason Stop Dose Admin Acetaminophen 650 mg 12/06/24 00:01 12/06/24 11:50 Acetaminophen 325 Mg Tablet PO 650 mg Q4H PRN Administration Mild Pain (1-3) or Fever Albuterol/Ipratropium 3 ml 12/06/24 11:02 Ipratropium 0.5 Mg/Albuterol Sulfate 2.5 Mg Ampul.Neb 3 Ml INHALATION Q6HRT PRN Wheezing and respiratory distress Aspirin 81 mg 12/06/24 09:00 12/10/24 08:57 Aspirin 81 Mg Enteric Tablet PO 81 mg DAILY AMANDA Administration Chlordiazepoxide HCl 25 mg 12/06/24 12:00 12/10/24 06:13 Chlordiazepoxide (*Crx) 25 Mg Capsule PO 25 mg Q6HR AMANDA Administration Enoxaparin Sodium 40 mg 12/07/24 09:00 12/10/24 08:57 Enoxaparin 40 Mg/0.4 Ml Syringe SUB-Q 40 mg DAILY AMANDA Administration Escitalopram Oxalate 10 mg 12/06/24 09:00 Escitalopram Oxalate 10 Mg Tablet PO DAILY AMANDA Folic Acid 1 mg 12/06/24 10:00 12/10/24 08:57 Folic Acid 1 Mg Tablet PO 1 mg DAILY AMANDA Administration Levothyroxine Sodium 75 mcg 12/06/24 06:30 12/10/24 06:13 Levothyroxine Sodium 75 Mcg Tablet PO 75 mcg DAILY@0630 AMANDA Administration Lorazepam 2 mg 12/06/24 09:58 Lorazepam Inj (*Crx) 2 Mg/Ml Vial IV PUSH Q2H PRN CIWA>8, HR>100, or DBP>100 Metoprolol Tartrate 50 mg 12/06/24 09:00 12/10/24 08:58 Metoprolol Tartrate 50 Mg Tab PO 50 mg Q12HR AMANDA Administration Multivitamins Therapeutic 1 tablet 12/06/24 09:00 12/10/24 08:58 Multivitamins Therapeutic Tab (*Bkc) PO 1 tablet DAILY COUNT INCLUDES THE [facility] Administration Nicotine 1 patch 12/06/24 02:50 12/10/24 09:02 Nicotine (*Pbkc) 21 Mg Patch TRANSDERM Not Given DAILY COUNT INCLUDES THE [facility] Ondansetron HCl 4 mg 12/06/24 00:01 Ondansetron Inj 4 Mg/2 Ml Vial IV PUSH Q4H PRN Nausea Pantoprazole Sodium 40 mg 12/06/24 09:00 12/10/24 08:58 Pantoprazole 40 Mg Tablet PO 40 mg QAM AMANDA Administration Thiamine HCl 100 mg 12/06/24 10:00 12/10/24 08:58 Thiamine Hcl 100 Mg Tablet PO 100 mg DAILY AMANDA Administration Radiology Results: ITS Impressions Head CT 12/05/24 23:23 Impression: No acute intracranial hemorrhage or suspicious mass effect. Elbow X-Ray 12/05/24 23:45 IMPRESSION: Degenerative disease, without acute fracture. Labs Labs: Laboratory Results - last 24 hr 12/09/24 12/09/24 12/09/24 04:29 11:43 11:53 WBC RBC Hgb Hct MCV MCH MCHC RDW Plt Count MPV Immature Gran % (Auto) Neut % (Auto) Lymph % (Auto) [place] % (Auto) Eos % (Auto) Baso % (Auto) Lymph # (Auto) [place] # (Auto) Eos # (Auto) Baso # (Auto) Abs Immat Gran (auto) Absolute Neuts (auto) Absolute Nucleated RBC Nucleated RBC % Sodium Potassium Chloride Carbon Dioxide Anion Gap BUN Creatinine Estim Creat Clear Calc Estimated GFR Glucose POC Capillary Glucose 128 H Calcium Phosphorus Magnesium Total Bilirubin AST ALT Alkaline Phosphatase Total Protein Albumin Cortisol Baseline 15.60 Cortisol Resp 30 Min 28.60 Cortisol Resp 60 Min Influenza A (RT-PCR) Influenza B (RT-PCR) RSV (RT-PCR) SARS-CoV-2 RNA (RT-PCR) 12/09/24 12/09/24 12/09/24 12:13 18:05 18:35 WBC RBC Hgb Hct MCV MCH MCHC RDW Plt Count MPV Immature Gran % (Auto) Neut % (Auto) Lymph % (Auto) [place] % (Auto) Eos % (Auto) Baso % (Auto) Lymph # (Auto) [place] # (Auto) Eos # (Auto) Baso # (Auto) Abs Immat Gran (auto) Absolute Neuts (auto) Absolute Nucleated RBC Nucleated RBC % Sodium Potassium Chloride Carbon Dioxide Anion Gap BUN Creatinine Estim Creat Clear Calc Estimated GFR Glucose POC Capillary Glucose 126 H Calcium Phosphorus Magnesium Total Bilirubin AST ALT Alkaline Phosphatase Total Protein Albumin Cortisol Baseline Cortisol Resp 30 Min Cortisol Resp 60 Min 40.00 Influenza A (RT-PCR) Negative Influenza B (RT-PCR) Negative RSV (RT-PCR) Negative SARS-CoV-2 RNA (RT-PCR) Negative 12/10/24 06:45 WBC 8.6 RBC 5.05 Hgb 16.9 Hct 48.9 MCV 96.8 MCH 33.5 MCHC 34.6 RDW 12.3 Plt Count 317 MPV 9.1 Immature Gran % (Auto) 0.9 H Neut % (Auto) 65.3 Lymph % (Auto) 16.7 L [place] % (Auto) 11.0 H Eos % (Auto) 4.9 H Baso % (Auto) 1.2 Lymph # (Auto) 1.43 [place] # (Auto) 0.9 H Eos # (Auto) 0.4 H Baso # (Auto) 0.1 Abs Immat Gran (auto) 0.08 H Absolute Neuts (auto) 5.6 Absolute Nucleated RBC 0.000 Nucleated RBC % 0.0 Sodium 131 L Potassium 3.2 L Chloride 96 L Carbon Dioxide 26 Anion Gap 9 BUN 19 Creatinine 1.02 Estim Creat Clear Calc 67 Estimated GFR > 60 Glucose 102 POC Capillary Glucose Calcium 9.3 Phosphorus 3.9 Magnesium 1.6 Total Bilirubin 1.5 H AST 36 ALT 18 Alkaline Phosphatase 47 Total Protein 7.1 Albumin 4.2 Cortisol Baseline Cortisol Resp 30 Min Cortisol Resp 60 Min Influenza A (RT-PCR) Influenza B (RT-PCR) RSV (RT-PCR) SARS-CoV-2 RNA (RT-PCR)
--- NOTE | 2024-12-10 16:39 | PM.IMPN ---
Progress Note: A&P Assessment and Plan (1) Acute hyponatremia: Code(s): E87.1 - Hypo-osmolality and hyponatremia Status: Acute Assessment and Plan: Presented with acute to infusion, altered mental status. Polydypsia, sodium levels of 119 -Asymptomatic HypoNa -TSH normal 3.9 -if necessary Cortisol will be measured -Possible due to polydipsia -Euvolemia -Goal 6-8 meq/l in 24 hr period -Urine Na pending -urine osmolarity pending -patient was given IV fluids in the ED -started on normal saline at 75 mL/hour per with Nephrology -fluid stopped As per Nephrology recommendation -sodium levels this morning 124 -mentation is improved significantly -appreciate Nephrology following the patient -continue BMPs (2) Acute confusion: Code(s): R41.0 - Disorientation, unspecified Status: Acute Assessment and Plan: Patient presented with altered mental status, acute confusion, polydipsia. According the family these were similar symptoms when he had an episode of acute hypokalemia the last time he was admitted to the [facility]. -12/06: This morning patient is awake, alert, oriented, sodium levels have improved (3) Alcohol abuse: Code(s): F10.10 - Alcohol abuse, uncomplicated Status: Acute Assessment and Plan: Patient drinks 1 pint of whiskey daily, -CIWA protocol has been ordered -Librium 25 mg p.o. q.6 hours schedule -thiamine and folic acid (4) COPD (chronic obstructive pulmonary disease): Code(s): J44.9 - Chronic obstructive pulmonary disease, unspecified Status: Chronic Assessment and Plan: History of COPD, will add p.r.n. bronchodilators (5) Hypothyroid: Code(s): E03.9 - Hypothyroidism, unspecified Status: Acute Assessment and Plan: Continue levothyroxine (6) Hypertension: Code(s): I10 - Essential (primary) hypertension Status: Chronic Assessment and Plan: Continue metoprolol (7) Suicidal thoughts: Code(s): R45.851 - Suicidal ideations Status: Acute Assessment and Plan: -Patient was medically stable on 12/05 to be discharged, but after placing the discharge order, the patient reported suicidal ideation. Requesting cyanide so that he can take his life. He denies harming others. Discussed with the District Traffic Chief, who agrees to transfer the patient to the ICU as a medical patient. -Consulted crisis team for suicidal ideation. -Pending transfer to psychiatry facility Subjective Date/time seen: 12/10/24 16:39 Interval history: Patient was evaluated along with his mother. Pending discharge to psychiatric facility. Review of Systems Review of Systems: All systems reviewed & are unremarkable except as noted in HPI and below ROS unobtainable: Yes unobtainable due to mental status Exam Narrative: General: Pleasant gentleman in no acute distress HEENT:? Pupils equal and reactive, sclera is clear, moist oral mucosa Neck:? Supple Respiratory:? Clear to auscultation bilaterally, no wheezing, adequate air entry Cardiac:? S1-S2 normal, regular rate and rhythm Abdomen:? Soft, nontender, nondistended, normoactive bowel sound Extremities:? No edema, palpable pedal pulses Neuro:? Patient is awake, alert, oriented to place, person, was able to tell me his date of , nonfocal, answers to questions appropriately and follows simple commands in all extremities Skin:? No skin lesions noted, skin is warm and dry Psych:? Normal mentation and affect Objective Data Vital Signs Vital Signs: Vital Signs - 24 hr 12/09/24 20:00 12/09/24 20:00 12/09/24 20:15 Temperature 98.7 F Pulse Rate 84 70 Respiratory Rate 16 16 Blood Pressure 140/88 140/88 Pulse Oximetry 99 99 Oxygen Delivery Room Air 12/09/24 20:22 12/09/24 20:35 12/09/24 23:27 Temperature Pulse Rate 84 Respiratory Rate Blood Pressure 140/88 Pulse Oximetry 99 Oxygen Delivery Room Air 12/09/24 23:27 12/10/24 04:00 12/10/24 08:00 Temperature Pulse Rate 76 76 Respiratory Rate 16 Blood Pressure 140/88 Pulse Oximetry 99 Oxygen Delivery Room Air 12/10/24 08:25 12/10/24 08:58 12/10/24 16:00 Temperature 97.5 F L Pulse Rate 75 79 82 Respiratory Rate 12 Blood Pressure 133/73 Pulse Oximetry 91 Oxygen Delivery Intake/Output Intake/Output: Intake & Output 12/07/24 12/08/24 12/09/24 12/10/24 23:59 23:59 23:59 23:59 Intake Total 860 600 650 662 Output Total 1820 800 500 300 Balance -960 -200 150 362 Meds/Results Medications: Active Medications Generic Name Dose Route Start Last Admin Trade Name Freq PRN Reason Stop Dose Admin Acetaminophen 650 mg 12/06/24 00:01 12/06/24 11:50 Acetaminophen 325 Mg Tablet PO 650 mg Q4H PRN Administration Mild Pain (1-3) or Fever Albuterol/Ipratropium 3 ml 12/06/24 11:02 Ipratropium 0.5 Mg/Albuterol Sulfate 2.5 Mg Ampul.Neb 3 Ml INHALATION Q6HRT PRN Wheezing and respiratory distress Aspirin 81 mg 12/06/24 09:00 12/10/24 08:57 Aspirin 81 Mg Enteric Tablet PO 81 mg DAILY AMANDA Administration Chlordiazepoxide HCl 25 mg 12/06/24 12:00 12/10/24 12:12 Chlordiazepoxide (*Crx) 25 Mg Capsule PO 25 mg Q6HR AMANDA Administration Enoxaparin Sodium 40 mg 12/07/24 09:00 12/10/24 08:57 Enoxaparin 40 Mg/0.4 Ml Syringe SUB-Q 40 mg DAILY AMANDA Administration Escitalopram Oxalate 10 mg 12/06/24 09:00 Escitalopram Oxalate 10 Mg Tablet PO DAILY AMANDA Folic Acid 1 mg 12/06/24 10:00 12/10/24 08:57 Folic Acid 1 Mg Tablet PO 1 mg DAILY AMANDA Administration Levothyroxine Sodium 75 mcg 12/06/24 06:30 12/10/24 06:13 Levothyroxine Sodium 75 Mcg Tablet PO 75 mcg DAILY@0630 AMANDA Administration Lorazepam 2 mg 12/06/24 09:58 Lorazepam Inj (*Crx) 2 Mg/Ml Vial IV PUSH Q2H PRN CIWA>8, HR>100, or DBP>100 Metoprolol Tartrate 50 mg 12/06/24 09:00 12/10/24 08:58 Metoprolol Tartrate 50 Mg Tab PO 50 mg Q12HR AMANDA Administration Multivitamins Therapeutic 1 tablet 12/06/24 09:00 12/10/24 08:58 Multivitamins Therapeutic Tab (*Bkc) PO 1 tablet DAILY AMANDA Administration Nicotine 1 patch 12/06/24 02:50 12/10/24 09:02 Nicotine (*Pbkc) 21 Mg Patch TRANSDERM Not Given DAILY [facility] Ondansetron HCl 4 mg 12/06/24 00:01 Ondansetron Inj 4 Mg/2 Ml Vial IV PUSH Q4H PRN Nausea Pantoprazole Sodium 40 mg 12/06/24 09:00 12/10/24 08:58 Pantoprazole 40 Mg Tablet PO 40 mg QAM AMANDA Administration Thiamine HCl 100 mg 12/06/24 10:00 12/10/24 08:58 Thiamine Hcl 100 Mg Tablet PO 100 mg DAILY AMANDA Administration Radiology Results: ITS Impressions Head CT 12/05/24 23:23 Impression: No acute intracranial hemorrhage or suspicious mass effect. Elbow X-Ray 12/05/24 23:45 IMPRESSION: Degenerative disease, without acute fracture. Labs Labs: Laboratory Results - last 24 hr 12/09/24 12/09/24 12/10/24 18:05 18:35 06:45 WBC 8.6 RBC 5.05 Hgb 16.9 Hct 48.9 MCV 96.8 MCH 33.5 MCHC 34.6 RDW 12.3 Plt Count 317 MPV 9.1 Immature Gran % (Auto) 0.9 H Neut % (Auto) 65.3 Lymph % (Auto) 16.7 L [place] % (Auto) 11.0 H Eos % (Auto) 4.9 H Baso % (Auto) 1.2 Lymph # (Auto) 1.43 [place] # (Auto) 0.9 H Eos # (Auto) 0.4 H Baso # (Auto) 0.1 Abs Immat Gran (auto) 0.08 H Absolute Neuts (auto) 5.6 Absolute Nucleated RBC 0.000 Nucleated RBC % 0.0 Sodium 131 L Potassium 3.2 L Chloride 96 L Carbon Dioxide 26 Anion Gap 9 BUN 19 Creatinine 1.02 Estim Creat Clear Calc 67 Estimated GFR > 60 Glucose 102 POC Capillary Glucose 126 H Calcium 9.3 Phosphorus 3.9 Magnesium 1.6 Total Bilirubin 1.5 H AST 36 ALT 18 Alkaline Phosphatase 47 Total Protein 7.1 Albumin 4.2 Influenza A (RT-PCR) Negative Influenza B (RT-PCR) Negative RSV (RT-PCR) Negative SARS-CoV-2 RNA (RT-PCR) Negative Quality VTE Prophylaxis VTE prophylaxis: pharmacologic ordered Hospitalist MIPS Advance Care Plan I have confirmed that the patient's Advanced Care Plan is present, code status is documented, or surrogate decision maker is listed in patient medical record.: Yes Medication Reconciliation I have utilized all available resources to obtain, update and review the patients current medications (includes all prescriptions, OTC, herbals, cannabis, and nutritional supplements).: Yes
[2024-12-11] VITALS (8 sets, daily range): BP systolic 102–132; BP diastolic 60–78; PULSE 80–111; RESP 16–20; TEMP 35.8–36.6; O2SAT 95–100
[2024-12-11] MEDS: chlordiazePOXIDE (*CRX) 25 MG CAPSULE PO ×4 (00:58→21:23)
[2024-12-11 03:38] LABS: Hematocrit 49.6 % (42.0-52.0); Hemoglobin 16.9 g/dL (14.0-18.0); Immature Granulocyte Percent A 0.8 % (0-0.5); Lymphocytes Absolute Auto 1.52 K/mm3 (0.9-3.2); Mean Corpuscular HGB Conc 34.1 g/dl (32-36); Mean Corpuscular Hemoglobin 33.1 pg (26-34); Mean Corpuscular Volume 97.3 fl (80-100); Nucleated Red Blood Cells Absolute Auto 0.000 K/mm3 (0.0-0.012); Nucleated Red Blood Cells Perc 0.0 % (0.0-0.2); Platelet Count Result 308 k/mm3 (150-375); Red Blood Count 5.10 M/mm3 (4.6-6.20); White Blood Count 8.5 K/mm3 (4.5-10.0)
[2024-12-11 04:34] LABS: Alanine Aminotransferase 21 U/L (6-50); Albumin Level 4.4 g/dL (3.5-5.1); Alkaline Phosphatase 53 U/L (38-126); Anion Gap 9 mmol/L (4-12); Aspartate Amino Transferase 42 U/L (17-59); Bilirubin,Total 1.3 mg/dL (0.2-1.3); Blood Urea Nitrogen 16 mg/dL (9-20); Calcium 9.4 mg/dL (8.4-10.2); Carbon Dioxide 25 mmol/L (22-30); Chloride 96 mmol/L (98-107); Estimated CRCL calculation 70 ml/min; Estimated Glomerular Filt Rate > 60; Glucose 104 mg/dL (65-110); Magnesium 1.4 mg/dL (1.6-2.3); Potassium 3.3 mmol/L (3.4-5.0); Sodium 130 mmol/L (137-145); Total Protein 7.4 g/dL (6.3-8.2)
[2024-12-11] MEDS: LEVOTHYROXINE SODIUM 75 MCG TABLET PO (05:19)
--- NOTE | 2024-12-11 09:00 | PM.IMPN ---
Progress Note: A&P Assessment and Plan (1) Acute hyponatremia: Code(s): E87.1 - Hypo-osmolality and hyponatremia Status: Acute Assessment and Plan: Presented with acute to infusion, altered mental status. Polydypsia, sodium levels of 119 Patient followed by Nephrology. Sodium has improved to 130-131 -mentation is improved significantly -appreciate Nephrology following the patient Monitor (2) Acute confusion: Code(s): R41.0 - Disorientation, unspecified Status: Acute Assessment and Plan: Resolved (3) Alcohol abuse: Code(s): F10.10 - Alcohol abuse, uncomplicated Status: Acute Assessment and Plan: Patient drinks 1 pint of whiskey daily, -CIWA protocol has been ordered -Librium but decrease the dose -contain thiamine and folic acid (4) COPD (chronic obstructive pulmonary disease): Code(s): J44.9 - Chronic obstructive pulmonary disease, unspecified Status: Chronic Assessment and Plan: History of COPD, continue p.r.n. bronchodilators (5) Hypothyroid: Code(s): E03.9 - Hypothyroidism, unspecified Status: Acute Assessment and Plan: Continue levothyroxine (6) Hypertension: Code(s): I10 - Essential (primary) hypertension Status: Chronic Assessment and Plan: Continue metoprolol (7) Electrolyte abnormality: Code(s): E87.8 - Other disorders of electrolyte and fluid balance, not elsewhere classified Status: Acute Assessment and Plan: Potassium and magnesium replacement ordered (8) Suicidal thoughts: Code(s): R45.851 - Suicidal ideations Status: Acute Assessment and Plan: Patient will be re-evaluated by crisis social sciences professor today. Plan DVT prophylaxis: Lovenox Stress ulcer prophylaxis: Not indicated Nutrition: Regular diet Code Status: Full code Remove Hinojosa catheter Subjective Date/time seen: 12/11/24 No significant change overnight. Patient awaits transition to inpatient psychiatric facility. No new complaints. Patient denies fever, chest pain, shortness of breath, cough, nausea vomiting, abdominal pain,, diarrhea, headache or constipation. All other systems were reviewed and were negative Review of Systems Review of Systems: All systems reviewed & are unremarkable except as noted in HPI and below Exam Narrative: General: Pleasant gentleman in no acute distress HEENT:? Pupils equal and reactive, sclera is clear, moist oral mucosa Neck:? Supple Respiratory:? Clear to auscultation bilaterally, no wheezing, adequate air entry Cardiac:? S1-S2 normal, regular rate and rhythm Abdomen:? Soft, nontender, nondistended, normoactive bowel sound Extremities:? No edema, palpable pedal pulses Neuro:? Patient is awake, alert, oriented to place, person, was able to tell me his date of , nonfocal, answers to questions appropriately and follows simple commands in all extremities Skin:? No skin lesions noted, skin is warm and dry Psych:? Normal mentation and affect Objective Data Vital Signs Vital Signs: Vital Signs - 24 hr 12/10/24 16:00 12/10/24 18:06 12/10/24 20:00 Temperature 36.7 C Pulse Rate 82 73 Respiratory Rate 16 Blood Pressure 128/86 124/62 Pulse Oximetry 99 Oxygen Delivery 12/10/24 20:00 12/10/24 20:00 12/10/24 20:21 Temperature 36.5 C Pulse Rate 76 76 68 Respiratory Rate 16 18 Blood Pressure 124/62 Pulse Oximetry 99 99 Oxygen Delivery Room Air 12/10/24 23:54 12/10/24 23:54 12/11/24 04:00 Temperature 36.5 C Pulse Rate 72 Respiratory Rate 18 Blood Pressure 132/72 132/72 132/72 Pulse Oximetry 99 Oxygen Delivery Intake/Output Intake/Output: Intake & Output 12/08/24 12/09/24 12/10/24 12/11/24 23:59 23:59 23:59 23:59 Intake Total 600 650 782 240 Output Total 800 500 650 400 Balance -200 150 132 -160 Meds/Results Medications: Active Medications Generic Name Dose Route Start Last Admin Trade Name Freq PRN Reason Stop Dose Admin Acetaminophen 650 mg 12/06/24 00:01 12/06/24 11:50 Acetaminophen 325 Mg Tablet PO 650 mg Q4H PRN Administration Mild Pain (1-3) or Fever Albuterol/Ipratropium 3 ml 12/06/24 11:02 Ipratropium 0.5 Mg/Albuterol Sulfate 2.5 Mg Ampul.Neb 3 Ml INHALATION Q6HRT PRN Wheezing and respiratory distress Aspirin 81 mg 12/06/24 09:00 12/10/24 08:57 Aspirin 81 Mg Enteric Tablet PO 81 mg DAILY AMANDA Administration Chlordiazepoxide HCl 25 mg 12/11/24 14:00 Chlordiazepoxide (*Crx) 25 Mg Capsule PO Q8HR REPLACED BY [facility] Enoxaparin Sodium 40 mg 12/07/24 09:00 12/10/24 08:57 Enoxaparin 40 Mg/0.4 Ml Syringe SUB-Q 40 mg DAILY AMANDA Administration Escitalopram Oxalate 10 mg 12/06/24 09:00 Escitalopram Oxalate 10 Mg Tablet PO DAILY AMANDA Folic Acid 1 mg 12/06/24 10:00 12/10/24 08:57 Folic Acid 1 Mg Tablet PO 1 mg DAILY AMADNA Administration Levothyroxine Sodium 75 mcg 12/06/24 06:30 12/11/24 05:19 Levothyroxine Sodium 75 Mcg Tablet PO 75 mcg DAILY@0630 REPLACED BY [facility] Administration Lorazepam 2 mg 12/06/24 09:58 Lorazepam Inj (*Crx) 2 Mg/Ml Vial IV PUSH Q2H PRN CIWA>8, HR>100, or DBP>100 Metoprolol Tartrate 50 mg 12/06/24 09:00 12/10/24 20:21 Metoprolol Tartrate 50 Mg Tab PO 50 mg Q12HR REPLACED BY [facility] Administration Multivitamins Therapeutic 1 tablet 12/06/24 09:00 12/10/24 08:58 Multivitamins Therapeutic Tab (*Bkc) PO 1 tablet DAILY REPLACED BY [facility] Administration Ondansetron HCl 4 mg 12/06/24 00:01 Ondansetron Inj 4 Mg/2 Ml Vial IV PUSH Q4H PRN Nausea Pantoprazole Sodium 40 mg 12/06/24 09:00 12/10/24 08:58 Pantoprazole 40 Mg Tablet PO 40 mg QAM REPLACED BY [facility] Administration Potassium Chloride 40 meq 12/11/24 08:00 Potassium Chloride 20 Meq Er Tablet PO 12/11/24 14:01 Q6H AMANDA Thiamine HCl 100 mg 12/06/24 10:00 12/10/24 08:58 Thiamine Hcl 100 Mg Tablet PO 100 mg DAILY AMANDA Administration Radiology Results: ITS Impressions Head CT 12/05/24 23:23 Impression: No acute intracranial hemorrhage or suspicious mass effect. Elbow X-Ray 12/05/24 23:45 IMPRESSION: Degenerative disease, without acute fracture. Labs Labs: Laboratory Results - last 24 hr 12/11/24 12/11/24 03:30 04:06 WBC 8.5 RBC 5.10 Hgb 16.9 Hct 49.6 MCV 97.3 MCH 33.1 MCHC 34.1 RDW 12.2 Plt Count 308 MPV 8.6 Immature Gran % (Auto) 0.8 H Neut % (Auto) 62.8 Lymph % (Auto) 18.0 L [place] % (Auto) 11.3 H Eos % (Auto) 5.9 H Baso % (Auto) 1.2 Lymph # (Auto) 1.52 [place] # (Auto) 1.0 H Eos # (Auto) 0.5 H Baso # (Auto) 0.1 Abs Immat Gran (auto) 0.07 H Absolute Neuts (auto) 5.3 Absolute Nucleated RBC 0.000 Nucleated RBC % 0.0 Sodium 130 L Potassium 3.3 L Chloride 96 L Carbon Dioxide 25 Anion Gap 9 BUN 16 Creatinine 0.98 Estim Creat Clear Calc 70 Estimated GFR > 60 Glucose 104 Calcium 9.4 Magnesium 1.4 L Total Bilirubin 1.3 AST 42 ALT 21 Alkaline Phosphatase 53 Total Protein 7.4 Albumin 4.4 Quality VTE Prophylaxis VTE prophylaxis: pharmacologic ordered
--- NOTE | 2024-12-11 09:36 | PM.PNNEP ---
Progress Note: A&P Assessment and Plan (1) Hyponatremia: Code(s): E87.1 - Hypo-osmolality and hyponatremia Status: Acute Assessment and Plan: appears to have stabilized chronic issues as appears to have been present since at least 2016 (from review of records) baseline sodium seems to run ~ 126 - 132mmol/L related to several issues: alcohol abuse on SSRI (escitalopram) thyroid disease PPI use excessive free water intake (known history) lung disease/COPD evaluation (previous and current hospitalization) noted: TSH okay cortisol lowish - stim test negative SPEP/UPEP negative urine electrolytes prerenal urine > serum osmolality on this and last admission head CT negative s/p 3% saline in ER (due to #2) s/p normal saline IVFs discontinued to prevent overcorrection goal of therapy is a rate of change of 6 - 8mmol/L in 24 hours (this was achieved) continue fluid restriction (1500cc) consider salt tabs + lasix if sodium declines further he has apparently been on salt tablets before... follow trend of repeat sodium levels (2) Hypokalemia: Code(s): E87.6 - Hypokalemia Status: Acute Assessment and Plan: suspect due to total body store depletion from diminished oral intake issues with low magnesium played a role as well these issues (hypokalemia + hypomagnesemia) have been present before replete as needed follow magnesium (3) Altered mental status: Code(s): R41.82 - Altered mental status, unspecified Status: Acute Assessment and Plan: improvement noted noted on admission to ER per family -- similar symptom when he had an episode of acute hyponatremia on previous [facility] admission mentation seems back to baseline at this time (4) Hypertension: Code(s): I10 - Essential (primary) hypertension Status: Chronic Assessment and Plan: reasonable control on metoprolol follow trend of hemodynamics (5) COPD (chronic obstructive pulmonary disease): Code(s): J44.9 - Chronic obstructive pulmonary disease, unspecified Status: Chronic Assessment and Plan: no evidence of exacerbation PRN nebulizer treatments (6) Alcohol abuse: Code(s): F10.10 - Alcohol abuse, uncomplicated Status: Acute Assessment and Plan: as noted by history drinks 1 pint of whiskey daily CIWA protocol in place Librium 25 mg p.o. q.6 hours on thiamine and folic acid Nothing much else to add -- will continue to follow from a distance. Subjective Date/time seen: 12/11/24 09:36 Interval history: Follow-up for acute on chronic hyponatremia. Chart reviewed since last seeen -- moved to ICU for closer monitoring for apparent suicidal ideation although the patient denies this issue; sodium remains relatively stable with current therapy/interventions; mentation appears stable if not at baseline; no apparent distress voiced at this time. Exam Narrative: General: WD/WN male in NAD Heart: normal S1 and S2; no rub Lungs: clear to auscultation Abdomen: soft, nontender, nondistended, positive bowel sounds Extremities: no cyanosis or clubbing; no edema Skin: no rash Objective Data Vital Signs Vital Signs: Vital Signs Temp Pulse Resp BP Pulse Ox O2 Del Method 12/11/24 08:00 96.5 F L 90 16 118/75 100 12/11/24 04:00 132/72 12/10/24 23:54 97.7 F 72 18 132/72 99 12/10/24 23:54 132/72 12/10/24 20:21 68 12/10/24 20:00 97.7 F 76 18 124/62 99 12/10/24 20:00 76 16 99 Room Air 12/10/24 20:00 124/62 12/10/24 18:06 98.1 F 73 16 128/86 99 12/10/24 16:00 82 Intake/Output Intake/Output: Intake & Output 12/08/24 12/09/24 12/10/24 12/11/24 23:59 23:59 23:59 23:59 Intake Total 600 650 782 240 Output Total 800 500 650 600 Balance -200 150 132 -360 Meds/Results Medications: Active Medications Generic Name Dose Route Start Last Admin Trade Name Freq PRN Reason Stop Dose Admin Acetaminophen 650 mg 12/06/24 00:01 12/06/24 11:50 Acetaminophen 325 Mg Tablet PO 650 mg Q4H PRN Administration Mild Pain (1-3) or Fever Albuterol/Ipratropium 3 ml 12/06/24 11:02 Ipratropium 0.5 Mg/Albuterol Sulfate 2.5 Mg Ampul.Neb 3 Ml INHALATION Q6HRT PRN Wheezing and respiratory distress Aspirin 81 mg 12/06/24 09:00 12/11/24 09:54 Aspirin 81 Mg Enteric Tablet PO 81 mg DAILY [facility] Administration Chlordiazepoxide HCl 25 mg 12/11/24 14:00 Chlordiazepoxide (*Crx) 25 Mg Capsule PO Q8HR [facility] Enoxaparin Sodium 40 mg 12/07/24 09:00 12/11/24 09:55 Enoxaparin 40 Mg/0.4 Ml Syringe SUB-Q Not Given DAILY [facility] Escitalopram Oxalate 10 mg 12/06/24 09:00 Escitalopram Oxalate 10 Mg Tablet PO DAILY [facility] Folic Acid 1 mg 12/06/24 10:00 12/11/24 09:54 Folic Acid 1 Mg Tablet PO 1 mg DAILY [facility] Administration Levothyroxine Sodium 75 mcg 12/06/24 06:30 12/11/24 05:19 Levothyroxine Sodium 75 Mcg Tablet PO 75 mcg DAILY@0630 [facility] Administration Lorazepam 2 mg 12/06/24 09:58 Lorazepam Inj (*Crx) 2 Mg/Ml Vial IV PUSH Q2H PRN CIWA>8, HR>100, or DBP>100 Metoprolol Tartrate 50 mg 12/06/24 09:00 12/11/24 09:54 Metoprolol Tartrate 50 Mg Tab PO 50 mg Q12HR [facility] Administration Multivitamins Therapeutic 1 tablet 12/06/24 09:00 12/11/24 09:54 Multivitamins Therapeutic Tab (*Bkc) PO 1 tablet DAILY [facility] Administration Ondansetron HCl 4 mg 12/06/24 00:01 Ondansetron Inj 4 Mg/2 Ml Vial IV PUSH Q4H PRN Nausea Pantoprazole Sodium 40 mg 12/06/24 09:00 12/11/24 09:54 Pantoprazole 40 Mg Tablet PO 40 mg QAM [facility] Administration Potassium Chloride 40 meq 12/11/24 08:00 12/11/24 09:55 Potassium Chloride 20 Meq Er Tablet PO 12/11/24 14:01 40 meq Q6H [facility] Administration Thiamine HCl 100 mg 12/06/24 10:00 12/11/24 09:54 Thiamine Hcl 100 Mg Tablet PO 100 mg DAILY [facility] Administration Radiology Results: ITS Impressions Head CT 12/05/24 23:23 Impression: No acute intracranial hemorrhage or suspicious mass effect. Elbow X-Ray 12/05/24 23:45 IMPRESSION: Degenerative disease, without acute fracture. Labs Labs: Laboratory Tests 12/11/24 03:30 12/11/24 04:06 Calcium 9.4 Magnesium 1.4 L Total Bilirubin 1.3 AST 42 ALT 21 Alkaline Phosphatase 53 Total Protein 7.4 Albumin 4.4
--- NOTE | 2024-12-11 09:36 | P.PNNP_ITS ---
Progress Note: A&P Assessment and Plan (1) Hyponatremia: Code(s): E87.1 - Hypo-osmolality and hyponatremia Status: Acute Assessment and Plan: * appears to have stabilized * chronic issues as appears to have been present since at least 2016 (from review of records) * baseline sodium seems to run ~ 126 - 132mmol/L * related to several issues: * alcohol abuse * on SSRI (escitalopram) * thyroid disease * PPI use * excessive free water intake (known history) * lung disease/COPD * evaluation (previous and current hospitalization) noted: * TSH okay * cortisol lowish - stim test negative * SPEP/UPEP negative * urine electrolytes prerenal * urine > serum osmolality on this and last admission * head CT negative * s/p 3% saline in ER (due to #2) * s/p normal saline IVFs * discontinued to prevent overcorrection * goal of therapy is a rate of change of 6 - 8mmol/L in 24 hours (this was achieved) * continue fluid restriction (1500cc) * consider salt tabs + lasix if sodium declines further * he has apparently been on salt tablets before... * follow trend of repeat sodium levels (2) Hypokalemia: Code(s): E87.6 - Hypokalemia Status: Acute Assessment and Plan: * suspect due to total body store depletion from diminished oral intake * issues with low magnesium played a role as well * these issues (hypokalemia + hypomagnesemia) have been present before * replete as needed * follow magnesium (3) Altered mental status: Code(s): R41.82 - Altered mental status, unspecified Status: Acute Assessment and Plan: * improvement noted * noted on admission to ER * per family -- similar symptom when he had an episode of acute hyponatremia on previous [facility] admission * mentation seems back to baseline at this time (4) Hypertension: Code(s): I10 - Essential (primary) hypertension Status: Chronic Assessment and Plan: * reasonable control * on metoprolol * follow trend of hemodynamics (5) COPD (chronic obstructive pulmonary disease): Code(s): J44.9 - Chronic obstructive pulmonary disease, unspecified Status: Chronic Assessment and Plan: * no evidence of exacerbation * PRN nebulizer treatments (6) Alcohol abuse: Code(s): F10.10 - Alcohol abuse, uncomplicated Status: Acute Assessment and Plan: * as noted by history * drinks 1 pint of whiskey daily * CIWA protocol in place * Librium 25 mg p.o. q.6 hours * on thiamine and folic acid Nothing much else to add -- will continue to follow from a distance. L Subjective Date/time seen: 12/11/24 09:36 Interval history: Follow-up for acute on chronic hyponatremia. Chart reviewed since last seeen -- moved to ICU for closer monitoring for apparent suicidal ideation although the patient denies this issue; sodium remains relatively stable with current therapy/interventions; mentation appears stable if not at baseline; no apparent distress voiced at this time. Exam 2 Narrative: General: WD/WN male in NAD Heart: normal S1 and S2; no rub Lungs: clear to auscultation Abdomen: soft, nontender, nondistended, positive bowel sounds Extremities: no cyanosis or clubbing; no edema Skin: no rash Objective Data Vital Signs Vital Signs: Vital Signs Temp Pulse Resp BP Pulse Ox O2 Del Method 12/11/24 08:00 96.5 F L 90 16 118/75 100 12/11/24 04:00 132/72 12/10/24 23:54 97.7 F 72 18 132/72 99 12/10/24 23:54 132/72 12/10/24 20:21 68 12/10/24 20:00 97.7 F 76 18 124/62 99 12/10/24 20:00 76 16 99 Room Air 12/10/24 20:00 124/62 12/10/24 18:06 98.1 F 73 16 128/86 99 12/10/24 16:00 82 Intake/Output Intake/Output: Intake & Output 12/08/24 12/09/24 12/10/24 12/11/24 23:59 23:59 23:59 23:59 Intake Total 600 650 782 240 Output Total 800 500 650 600 Balance -200 150 132 -360 Meds/Results Medications: Active Medications Generic Name Dose Route Start Last Admin Trade Name Freq PRN Reason Stop Dose Admin Acetaminophen 650 mg 12/06/24 00:01 12/06/24 11:50 Acetaminophen 325 Mg Tablet PO 650 mg Q4H PRN Administration Mild Pain (1-3) or Fever Albuterol/Ipratropium 3 ml 12/06/24 11:02 Ipratropium 0.5 Mg/Albuterol Sulfate 2.5 Mg Ampul.Neb 3 Ml INHALATION Q6HRT PRN Wheezing and respiratory distress Aspirin 81 mg 12/06/24 09:00 12/11/24 09:54 Aspirin 81 Mg Enteric Tablet PO 81 mg DAILY [facility] Administration Chlordiazepoxide HCl 25 mg 12/11/24 14:00 Chlordiazepoxide (*Crx) 25 Mg Capsule PO Q8HR [facility] [place] Enoxaparin Sodium 40 mg 12/07/24 09:00 12/11/24 09:55 Enoxaparin 40 Mg/0.4 Ml Syringe SUB-Q Not Given DAILY [facility] Escitalopram Oxalate 10 mg 12/06/24 09:00 Escitalopram Oxalate 10 Mg Tablet PO DAILY [facility] [place] Folic Acid 1 mg 12/06/24 10:00 12/11/24 09:54 Folic Acid 1 Mg Tablet PO 1 mg DAILY [facility] Administration Levothyroxine Sodium 75 mcg 12/06/24 06:30 12/11/24 05:19 Levothyroxine Sodium 75 Mcg Tablet PO 75 mcg DAILY@0630 [facility] [place] Administration Lorazepam 2 mg 12/06/24 09:58 Lorazepam Inj (*Crx) 2 Mg/Ml Vial IV PUSH Q2H PRN CIWA>8, HR>100, or DBP>100 Metoprolol Tartrate 50 mg 12/06/24 09:00 12/11/24 09:54 Metoprolol Tartrate 50 Mg Tab PO 50 mg Q12HR [facility] Administration Multivitamins Therapeutic 1 tablet 12/06/24 09:00 12/11/24 09:54 Multivitamins Therapeutic Tab (*Bkc) PO 1 tablet DAILY [facility] [place] Administration Ondansetron HCl 4 mg 12/06/24 00:01 Ondansetron Inj 4 Mg/2 Ml Vial IV PUSH Q4H PRN Nausea Pantoprazole Sodium 40 mg 12/06/24 09:00 12/11/24 09:54 Pantoprazole 40 Mg Tablet PO 40 mg QAM [facility] Administration Potassium Chloride 40 meq 12/11/24 08:00 12/11/24 09:55 Potassium Chloride 20 Meq Er Tablet PO 12/11/24 14:01 40 meq Q6H [facility] Administration Thiamine HCl 100 mg 12/06/24 10:00 12/11/24 09:54 Thiamine Hcl 100 Mg Tablet PO 100 mg DAILY [facility] Administration Radiology Results: ITS Impressions Head CT 12/05/24 23:23 Impression: No acute intracranial hemorrhage or suspicious mass effect. Elbow X-Ray 12/05/24 23:45 IMPRESSION: Degenerative disease, without acute fracture. Labs Labs: Laboratory Tests 12/11/24 03:30 12/11/24 04:06 Calcium 9.4 Magnesium 1.4 L Total Bilirubin 1.3 AST 42 ALT 21 Alkaline Phosphatase 53 Total Protein 7.4 Albumin 4.4
[2024-12-11] MEDS: THIAMINE HCL 100 MG TABLET PO (09:54)
[2024-12-11] MEDS: METOPROLOL TARTRATE 50 MG TAB PO ×2 (09:54→21:23)
[2024-12-11] MEDS: PANTOPRAZOLE 40 MG TABLET PO (09:54)
[2024-12-11] MEDS: ASPIRIN 81 MG ENTERIC TABLET PO (09:54)
[2024-12-11] MEDS: MULTIVITAMINS THERAPEUTIC TAB (*BKC) 1 TABLET PO (09:54)
[2024-12-11] MEDS: FOLIC ACID 1 MG TABLET PO (09:54)
[2024-12-11] MEDS: POTASSIUM CHLORIDE 20 MEQ ER TABLET 40 MEQ PO ×2 (09:55→14:44)
--- NOTE | 2024-12-11 09:57 | P.PNCROSS_ITS ---
Event Note Event Note Event Note: Met with patient again along with crisis home health care social worker. She reassessed patient this morning. Patient denies any suicidal homicidal ideation. He states he never said anything about hurting himself or anyone else including his mother and this is news to him as someone told him that he said those things. He states that he has a good relationship with mother. He admitted that he does drink alcohol but denies smoking. He states that he has good wound and is not planning to hurt himself or anyone else. He is going to go home and discharge and will stay with his mother. He states that he has never been diagnosed with depression. He states that he does not have any weapon at home and does not have any friend who has a gun. After assessment it was deemed the patient did not appear to be 3rd to himself or anyone else. Will discontinue suicide precautions. And planned for discharge once medical issues are resolved
--- NOTE | 2024-12-11 18:55 | PC.NURSE ---
This patient, Emeka Velazco, was transferred to [[id number] ] on 12/11/24 at 1855. Personal belongings sent with patient. Report given to [VICTORINO Dent @ [phone] ]. Appropriate documentation sent with patient.
[2024-12-12 05:45] LABS: Hematocrit 49.9 % (42.0-52.0); Hemoglobin 16.9 g/dL (14.0-18.0); Immature Granulocyte Percent A 1.0 % (0-0.5); Lymphocytes Absolute Auto 1.49 K/mm3 (0.9-3.2); Mean Corpuscular HGB Conc 33.9 g/dl (32-36); Mean Corpuscular Hemoglobin 33.7 pg (26-34); Mean Corpuscular Volume 99.6 fl (80-100); Nucleated Red Blood Cells Absolute Auto 0.000 K/mm3 (0.0-0.012); Nucleated Red Blood Cells Perc 0.0 % (0.0-0.2); Platelet Count Result 303 k/mm3 (150-375); Red Blood Count 5.01 M/mm3 (4.6-6.20); White Blood Count 7.0 K/mm3 (4.5-10.0)
[2024-12-12 06:00] VITALS: BP 109/54; PULSE 85; RESP 20; TEMP 36.1; O2SAT 100
[2024-12-12 06:12] LABS: Alanine Aminotransferase 21 U/L (6-50); Albumin Level 4.2 g/dL (3.5-5.1); Alkaline Phosphatase 44 U/L (38-126); Anion Gap 10 mmol/L (4-12); Aspartate Amino Transferase 32 U/L (17-59); Bilirubin,Total 1.0 mg/dL (0.2-1.3); Blood Urea Nitrogen 24 mg/dL (9-20); Calcium 9.6 mg/dL (8.4-10.2); Carbon Dioxide 24 mmol/L (22-30); Chloride 99 mmol/L (98-107); Estimated CRCL calculation 38 ml/min; Estimated Glomerular Filt Rate 37; Glucose 96 mg/dL (65-110); Magnesium 1.5 mg/dL (1.6-2.3); Potassium 4.4 mmol/L (3.4-5.0); Sodium 133 mmol/L (137-145); Total Protein 7.2 g/dL (6.3-8.2)
[2024-12-12] MEDS: LEVOTHYROXINE SODIUM 75 MCG TABLET PO (06:30)
[2024-12-12] MEDS: chlordiazePOXIDE (*CRX) 25 MG CAPSULE PO (06:30)
[2024-12-12 10:04] VITALS: BP 97/66; PULSE 75
[2024-12-12] MEDS: PANTOPRAZOLE 40 MG TABLET PO (10:04)
[2024-12-12] MEDS: THIAMINE HCL 100 MG TABLET PO (10:04)
[2024-12-12] MEDS: FOLIC ACID 1 MG TABLET PO (10:04)
[2024-12-12] MEDS: MULTIVITAMINS THERAPEUTIC TAB (*BKC) 1 TABLET PO (10:04)
[2024-12-12] MEDS: ASPIRIN 81 MG ENTERIC TABLET PO (10:04)
[2024-12-12] MEDS: ENOXAPARIN 40 MG/0.4 ML SYRINGE SUB-Q (10:06)
[2024-12-12 14:00] VITALS: BP 112/65; PULSE 85; RESP 16; TEMP 36.4; O2SAT 91
--- NOTE | 2024-12-12 14:58 | PM.IMPN ---
Progress Note: A&P Assessment and Plan (1) Acute hyponatremia: Code(s): E87.1 - Hypo-osmolality and hyponatremia Status: Acute Assessment and Plan: Presented with acute to infusion, altered mental status. Polydypsia, sodium levels of 119 Patient followed by Nephrology. Sodium has improved to 130-131 -mentation is improved significantly -appreciate Nephrology following the patient Monitor (2) Acute confusion: Code(s): R41.0 - Disorientation, unspecified Status: Acute Assessment and Plan: Resolved (3) Alcohol abuse: Code(s): F10.10 - Alcohol abuse, uncomplicated Status: Acute Assessment and Plan: Patient drinks 1 pint of whiskey daily, -CIWA protocol has been ordered -Librium decreased to 10 from 25 -contain thiamine and folic acid (4) COPD (chronic obstructive pulmonary disease): Code(s): J44.9 - Chronic obstructive pulmonary disease, unspecified Status: Chronic Assessment and Plan: History of COPD, continue p.r.n. bronchodilators (5) Hypothyroid: Code(s): E03.9 - Hypothyroidism, unspecified Status: Acute Assessment and Plan: Continue levothyroxine (6) Hypertension: Code(s): I10 - Essential (primary) hypertension Status: Chronic Assessment and Plan: Continue metoprolol (7) Electrolyte abnormality: Code(s): E87.8 - Other disorders of electrolyte and fluid balance, not elsewhere classified Status: Acute Assessment and Plan: Potassium and magnesium replacement ordered (8) Suicidal thoughts: Code(s): R45.851 - Suicidal ideations Status: Acute Assessment and Plan: Patient will be re-evaluated by crisis social science research assistant today. Plan NAHOMY Cr 1.98, from normal Started on IVF and monitor Hypomagnesemia Mg 1.5 today monitor DVT prophylaxis: Lovenox Stress ulcer prophylaxis: Not indicated Nutrition: Regular diet Code Status: Full code Remove Hinojosa catheter Subjective Date/time seen: 12/12/24 14:58 Interval history: Patient comfortable at bedside however Cr bumped to 1.86 today will monitor one more day Review of Systems Review of Systems: All systems reviewed & are unremarkable except as noted in HPI and below ROS unobtainable: Yes unobtainable due to mental status Exam Narrative: General: Pleasant gentleman in no acute distress HEENT:? Pupils equal and reactive, sclera is clear, moist oral mucosa Neck:? Supple Respiratory:? Clear to auscultation bilaterally, no wheezing, adequate air entry Cardiac:? S1-S2 normal, regular rate and rhythm Abdomen:? Soft, nontender, nondistended, normoactive bowel sound Extremities:? No edema, palpable pedal pulses Neuro:? Patient is awake, alert, oriented to place, person, was able to tell me his date of , nonfocal, answers to questions appropriately and follows simple commands in all extremities Skin:? No skin lesions noted, skin is warm and dry Psych:? Normal mentation and affect Objective Data Vital Signs Vital Signs: Vital Signs - 24 hr 12/11/24 16:34 12/11/24 20:00 12/11/24 21:23 Temperature 97.9 F Pulse Rate 80 111 H 111 H Respiratory Rate 16 16 Blood Pressure 102/60 Pulse Oximetry 95 95 Oxygen Delivery Room Air 12/11/24 22:30 12/12/24 06:00 12/12/24 10:00 Temperature 97.8 F 97.0 F L Pulse Rate 96 85 Respiratory Rate 20 20 Blood Pressure 126/78 109/54 L Pulse Oximetry 100 100 Oxygen Delivery Room Air 12/12/24 10:04 Temperature Pulse Rate 75 Respiratory Rate Blood Pressure 97/66 L Pulse Oximetry Oxygen Delivery Intake/Output Intake/Output: Intake & Output 12/09/24 12/10/24 12/11/24 12/12/24 23:59 23:59 23:59 23:59 Intake Total 650 782 630 320 Output Total 500 650 600 0 Balance 150 132 30 320 Meds/Results Medications: Active Medications Generic Name Dose Route Start Last Admin Trade Name Zachq PRN Reason Stop Dose Admin Acetaminophen 650 mg 12/06/24 00:01 12/06/24 11:50 Acetaminophen 325 Mg Tablet PO 650 mg Q4H PRN Administration Mild Pain (1-3) or Fever Albuterol/Ipratropium 3 ml 12/06/24 11:02 Ipratropium 0.5 Mg/Albuterol Sulfate 2.5 Mg Ampul.Neb 3 Ml INHALATION Q6HRT PRN Wheezing and respiratory distress Aspirin 81 mg 12/06/24 09:00 12/12/24 10:04 Aspirin 81 Mg Enteric Tablet PO 81 mg DAILY [facility] Administration Chlordiazepoxide HCl 10 mg 12/12/24 22:00 Chlordiazepoxide (*Crx) 10 Mg Capsule PO Q8HR [facility] Enoxaparin Sodium 40 mg 12/07/24 09:00 12/12/24 10:06 Enoxaparin 40 Mg/0.4 Ml Syringe SUB-Q 40 mg DAILY [facility] Administration Escitalopram Oxalate 10 mg 12/06/24 09:00 Escitalopram Oxalate 10 Mg Tablet PO On Hold: 12/06/24 09:00 DAILY [facility] Folic Acid 1 mg 12/06/24 10:00 12/12/24 10:04 Folic Acid 1 Mg Tablet PO 1 mg DAILY [facility] Administration Sodium Chloride 1,000 mls @ 100 mls/hr 12/12/24 14:50 Normal Saline Iv IV CONT .Q10H [facility] Levothyroxine Sodium 75 mcg 12/06/24 06:30 12/12/24 06:30 Levothyroxine Sodium 75 Mcg Tablet PO 75 mcg DAILY@0630 [facility] Administration Lorazepam 2 mg 12/06/24 09:58 Lorazepam Inj (*Crx) 2 Mg/Ml Vial IV PUSH Q2H PRN CIWA>8, HR>100, or DBP>100 Metoprolol Tartrate 50 mg 12/06/24 09:00 12/12/24 10:12 Metoprolol Tartrate 50 Mg Tab PO Not Given Q12HR [facility] Multivitamins Therapeutic 1 tablet 12/06/24 09:00 12/12/24 10:04 Multivitamins Therapeutic Tab (*Bkc) PO 1 tablet DAILY [facility] Administration Ondansetron HCl 4 mg 12/06/24 00:01 Ondansetron Inj 4 Mg/2 Ml Vial IV PUSH Q4H PRN Nausea Pantoprazole Sodium 40 mg 12/06/24 09:00 12/12/24 10:04 Pantoprazole 40 Mg Tablet PO 40 mg QAM [facility] Administration Thiamine HCl 100 mg 12/06/24 10:00 12/12/24 10:04 Thiamine Hcl 100 Mg Tablet PO 100 mg DAILY [facility] Administration Radiology Results: ITS Impressions Head CT 12/05/24 23:23 Impression: No acute intracranial hemorrhage or suspicious mass effect. Elbow X-Ray 12/05/24 23:45 IMPRESSION: Degenerative disease, without acute fracture. Labs Labs: Laboratory Results - last 24 hr 12/12/24 05:30 WBC 7.0 RBC 5.01 Hgb 16.9 Hct 49.9 MCV 99.6 MCH 33.7 MCHC 33.9 RDW 12.4 Plt Count 303 MPV 9.0 Immature Gran % (Auto) 1.0 H Neut % (Auto) 61.1 Lymph % (Auto) 21.2 Roosevelt % (Auto) 9.4 H Eos % (Auto) 5.5 H Baso % (Auto) 1.8 H Lymph # (Auto) 1.49 Roosevelt # (Auto) 0.7 H Eos # (Auto) 0.4 H Baso # (Auto) 0.1 Abs Immat Gran (auto) 0.07 H Absolute Neuts (auto) 4.3 Absolute Nucleated RBC 0.000 Nucleated RBC % 0.0 Sodium 133 L Potassium 4.4 Chloride 99 Carbon Dioxide 24 Anion Gap 10 BUN 24 H Creatinine 1.86 H Estim Creat Clear Calc 38 Estimated GFR 37 L Glucose 96 Calcium 9.6 Magnesium 1.5 L Total Bilirubin 1.0 AST 32 ALT 21 Alkaline Phosphatase 44 Total Protein 7.2 Albumin 4.2 Quality VTE Prophylaxis VTE prophylaxis: pharmacologic ordered
--- NOTE | 2024-12-12 16:12 | PC.NURSE ---
RN called Hospitalist [facility] cell phone at [phone] and no answer. RN called hospitalist office at 1601 and no answer. RN called hospitalist [facility] cell phone at [phone] and no answer. Patient mother is upset that patient is needing an IV and stating hospitalist [facility] told her that patient would be discharging today. RN called to update hospitalist, but answer or returned call at this time. Patient has not voided all night or day. RN bladder scanned patient and scan showed 286 mL. RN also wanted to update hospitalist on this finding, but no answer.
[2024-12-12] MEDS: MAGNESIUM SULF 2 GM/WATER 50ML 2 GM/50 ML BAG IVPB (16:58)
[2024-12-12] MEDS: SODIUM CHLORIDE 0.9% IV 1,000 ML 100 ML IV CONT (16:58)
[2024-12-12 21:09] VITALS: PULSE 85; RESP 20; O2SAT 96
[2024-12-12 21:41] VITALS: PULSE 83
[2024-12-12] MEDS: METOPROLOL TARTRATE 50 MG TAB PO (21:41)
[2024-12-12] MEDS: chlordiazePOXIDE (*CRX) 10 MG CAPSULE PO (21:41)
[2024-12-12 22:00] VITALS: BP 133/49; PULSE 83; RESP 18; TEMP 36.4; O2SAT 96
[2024-12-13 05:12] LABS: Hematocrit 45.7 % (42.0-52.0); Hemoglobin 15.5 g/dL (14.0-18.0); Immature Granulocyte Percent A 0.9 % (0-0.5); Lymphocytes Absolute Auto 1.46 K/mm3 (0.9-3.2); Mean Corpuscular HGB Conc 33.9 g/dl (32-36); Mean Corpuscular Hemoglobin 33.3 pg (26-34); Mean Corpuscular Volume 98.1 fl (80-100); Nucleated Red Blood Cells Absolute Auto 0.000 K/mm3 (0.0-0.012); Nucleated Red Blood Cells Perc 0.0 % (0.0-0.2); Platelet Count Result 296 k/mm3 (150-375); Red Blood Count 4.66 M/mm3 (4.6-6.20); White Blood Count 6.3 K/mm3 (4.5-10.0)
[2024-12-13 05:23] LABS: Alanine Aminotransferase 19 U/L (6-50); Albumin Level 4.1 g/dL (3.5-5.1); Alkaline Phosphatase 50 U/L (38-126); Anion Gap 12 mmol/L (4-12); Aspartate Amino Transferase 29 U/L (17-59); Bilirubin,Total 1.1 mg/dL (0.2-1.3); Blood Urea Nitrogen 24 mg/dL (9-20); Calcium 9.4 mg/dL (8.4-10.2); Carbon Dioxide 18 mmol/L (22-30); Chloride 102 mmol/L (98-107); Estimated CRCL calculation 53 ml/min; Estimated Glomerular Filt Rate 56; Glucose 98 mg/dL (65-110); Magnesium 1.9 mg/dL (1.6-2.3); Potassium 3.5 mmol/L (3.4-5.0); Sodium 132 mmol/L (137-145); Total Protein 6.8 g/dL (6.3-8.2)
[2024-12-13] MEDS: chlordiazePOXIDE (*CRX) 10 MG CAPSULE PO (05:47)
[2024-12-13] MEDS: LEVOTHYROXINE SODIUM 75 MCG TABLET PO (05:47)
[2024-12-13 06:00] VITALS: BP 128/74; PULSE 65; RESP 18; TEMP 36.1; O2SAT 98
[2024-12-13 09:18] VITALS: PULSE 93
[2024-12-13] MEDS: MULTIVITAMINS THERAPEUTIC TAB (*BKC) 1 TABLET PO (09:18)
[2024-12-13] MEDS: METOPROLOL TARTRATE 50 MG TAB PO (09:18)
[2024-12-13] MEDS: TAMSULOSIN HCL 0.4 MG CAPSULE PO (09:18)
[2024-12-13] MEDS: ENOXAPARIN 40 MG/0.4 ML SYRINGE SUB-Q (09:18)
[2024-12-13] MEDS: THIAMINE HCL 100 MG TABLET PO (09:21)
[2024-12-13] MEDS: FOLIC ACID 1 MG TABLET PO (09:21)
[2024-12-13] MEDS: PANTOPRAZOLE 40 MG TABLET PO (09:21)
[2024-12-13] MEDS: ASPIRIN 81 MG ENTERIC TABLET PO (09:21)
[2024-12-13 11:01] LABS: Anion Gap 10 mmol/L (4-12); Blood Urea Nitrogen 23 mg/dL (9-20); Calcium 9.5 mg/dL (8.4-10.2); Carbon Dioxide 25 mmol/L (22-30); Chloride 100 mmol/L (98-107); Estimated CRCL calculation 56 ml/min; Estimated Glomerular Filt Rate 59; Glucose 99 mg/dL (65-110); Potassium 4.0 mmol/L (3.4-5.0); Sodium 135 mmol/L (137-145)
--- NOTE | 2024-12-13 12:22 | P.DS_ITS ---
DS: Admitting Diagnosis Discharge Date 12/13/2024 Admitting Diagnosis altered mental status, symptomatic hyponatremia DS: Discharge Diagnosis Discharge Diagnosis (1) Alcohol abuse: Code(s): F10.10 - Alcohol abuse, uncomplicated Status: Acute DS: Summary Hospital Course Hospital Course: 1.?Hyponatremia (E87.1) ? Acute on Chronic * Acute exacerbation of chronic hyponatremia, symptomatic with altered mental status. 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 * Sodium 119 mmol/L on arrival, improved to 122 after 150 mL 3% saline bolus in ED. * S/P IV Normal saline then fluid restriction * Baseline sodium typically 126?132 mmol/L. * Fluid restriction to 1500 mL/day recommended. Serum sodium stable at 136 discussed with sister who noted she will monitor him for alcohol abuse 2.?Hypokalemia and Hypomagnesemia * Potassium 3.0 and Mg 1.5 * today K 4.0 and Mg 1.9 replaced and resolved 3.?Acquired Hypothyroidism (E03.9) * Chronic, stable on levothyroxine. * TSH within normal limits during admission. * Continue home medications 4.?COPD (J44.9) * Chronic, no evidence of acute exacerbation during admission. * PRN bronchodilators as needed. 5.?History of Tobacco Abuse (Z87.891) * Nicotine patch ordered during admission. 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 * Chronic dry mouth contributing to primary polydipsia and recurrent hyponatremia. 7.?Alcohol Abuse (F10.10) * Drinks approximately 1 pint of whiskey daily. * Contributor to chronic hyponatremia and nutritional deficiencies. * Managed with [place] protocol, Librium, thiamine, and folic acid during admission. 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 * Continue Thiamine and folic acid 8.?Altered Mental Status (R41.82) / Acute Confusion (R41.0) * Presented with confusion and altered mental status, resolved with correction of hyponatremia. * Mental status returned to baseline prior to discharge. 9.?Electrolyte Abnormality (E87.8) * Hypomagnesemia on admission, repleted as needed. * Continue to monitor electrolytes. 10.?Suicidal Ideation (R43.877) * Initial concern for suicidal ideation; crisis addiction social worker evaluation completed. * Patient denied any suicidal or homicidal ideation, no evidence of acute psychiatric risk. * Suicide precautions discontinued; cleared for discharge from a psychiatric standpoint. 11.?Acute Kidney Injury (N17.9) * Transient rise in creatinine (peak 1.98), likely multifactorial (volume status, electrolyte disturbances). * Improved with supportive care and IV fluids. * Monitor renal function as outpatient. * resolved and creatinien 1.23 today Discharge Medications: * Continue home medications as tolerated (levothyroxine, metoprolol, etc.) * Potassium and magnesium supplements as needed * Nicotine patch if still indicated * Thiamine and folic acid if ongoing alcohol use Discharge Instructions: * Strict fluid restriction (1500 mL/day) * Avoid excessive free water intake * Adhere to medication regimen * Follow up with primary care, nephrology, and consider addiction counseling * Return to ED for recurrent confusion, weakness, or other concerning symptoms Follow-Up: * Primary care within 1 week * Nephrology follow-up as scheduled * Outpatient addiction counseling as appropriate Code Status:?Full code Time Spent with Patient Time attestation: Total time spent providing and/or coordinating discharge services: DS: Data Data Completed and Pending Labs on day of discharge: Labs from last 24 hours 12/13/24 12/13/24 10:19 04:59 WBC 6.3 RBC 4.66 Hgb 15.5 Hct 45.7 MCV 98.1 MCH 33.3 MCHC 33.9 RDW 12.3 Plt Count 296 MPV 9.3 Immature Gran % (Auto) 0.9 H Neut % (Auto) 57.7 Lymph % (Auto) 23.0 [place] % (Auto) 11.8 H Eos % (Auto) 4.9 H Baso % (Auto) 1.7 H Lymph # (Auto) 1.46 [place] # (Auto) 0.8 H Eos # (Auto) 0.3 Baso # (Auto) 0.1 Abs Immat Gran (auto) 0.06 H Absolute Neuts (auto) 3.7 Absolute Nucleated RBC 0.000 Nucleated RBC % 0.0 Sodium 135 L 132 L Potassium 4.0 3.5 Chloride 100 102 Carbon Dioxide 25 18 L Anion Gap 10 12 BUN 23 H 24 H Creatinine 1.23 1.30 Estim Creat Clear Calc 56 53 Estimated GFR 59 56 L Glucose 99 98 Calcium 9.5 9.4 Magnesium 1.9 Total Bilirubin 1.1 AST 29 ALT 19 Alkaline Phosphatase 50 Total Protein 6.8 Albumin 4.1 Discharge Plan Discharge Attending physician on discharge: Enrike Zazueta Consulting providers: Alma Acevedo; Toby Hair Discharging Clinician: Enrike Zazueta Anticipated Discharge Date/Time: 12/09/24 11:40 Patient Disposition: Home Activity: as tolerated Diet: regular and other - see discharge instructions Discharge Instructions: Do not drink excess fluid. Do not drink more than 1L in a day Check the sodium level in a week. Order CMP. Please discuss results with PCP or Nephrology Please follow-up with PCP, oncology and Nephrology In the event of dizziness other concerning symptoms please visit nearby ED Patient Instructions: Heart Failure (DC), Hyponatremia (DC), Hinojosa Catheter Placement and Care (DC), Abuse of Alcohol (DC) Patient Language: Hungarian Stand Alone Forms: General Discharge Information Follow-up/Referrals: Godwin Rubin MD [Primary Care Provider, Family Practice] Alma Acevedo MD [Physician, Nephrology] Referral Note: Sodium follow-up Discharge Medications: New thiamine HCl (vitamin B1) [Vitamin B-1] 100 mg Tablet 100 mg PO DAILY Qty: 30 0RF folic acid 1 mg Tablet 1 mg PO DAILY Qty: 30 0RF chlordiazepoxide HCl 5 mg capsule 5 mg PO BID 2 Days Qty: 4 0RF Continued aspirin 81 mg tablet,delayed release (DR/EC) 81 mg PO DAILY multivitamin Tablet 1 tablet PO DAILY metoprolol tartrate 50 mg tablet 50 mg PO DAILY escitalopram oxalate 10 mg tablet 10 mg PO DAILY Qty: 90 1RF Rx Instructions: TAKE 1 TABLET BY MOUTH DAILY levothyroxine 75 mcg tablet See Rx Instructions .ROUTE .COMPLEX Qty: 90 1RF Dose Instruction: TAKE 1 TABLET BY MOUTH DAILY Rx Instructions: TAKE 1 TABLET BY MOUTH DAILY pantoprazole [Protonix] 40 mg tablet,delayed release (DR/EC) 40 mg PO QAM Qty: 90 2RF Other Ambulatory Orders: Comprehensive Metabolic Panel (Routine) Timeframe: 1 Week Location: Determined by Patient Ordered By: Enrike Zazueta Date of admission: 12/06/24 00:20 Primary Care Provider: Godwin Rubin Admitting Provider: Enrike Zazueta Attending physician on admission: Enrike Zazueta Condition: Stable
--- NOTE | 2024-12-13 12:22 | PM.DS ---
DS: Admitting Diagnosis Discharge Date 12/13/2024 Admitting Diagnosis altered mental status, symptomatic hyponatremia DS: Discharge Diagnosis Discharge Diagnosis (1) Alcohol abuse: Code(s): F10.10 - Alcohol abuse, uncomplicated Status: Acute DS: Summary Hospital Course Hospital Course: 1.?Hyponatremia (E87.1) ? Acute on Chronic Acute exacerbation of chronic hyponatremia, symptomatic with altered mental status. 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 Sodium 119 mmol/L on arrival, improved to 122 after 150 mL 3% saline bolus in ED. S/P IV Normal saline then fluid restriction Baseline sodium typically 126?132 mmol/L. Fluid restriction to 1500 mL/day recommended. Serum sodium stable at 136 discussed with sister who noted she will monitor him for alcohol abuse 2.?Hypokalemia and Hypomagnesemia Potassium 3.0 and Mg 1.5 today K 4.0 and Mg 1.9 replaced and resolved 3.?Acquired Hypothyroidism (E03.9) Chronic, stable on levothyroxine. TSH within normal limits during admission. Continue home medications 4.?COPD (J44.9) Chronic, no evidence of acute exacerbation during admission. PRN bronchodilators as needed. 5.?History of Tobacco Abuse (Z87.891) Nicotine patch ordered during admission. Pet Sitting on smoking cessation. 6.?History of Oral Surgery (Z98.890) S/P facial surgery in 2010 for head and neck cancer. Chronic dry mouth contributing to primary polydipsia and recurrent hyponatremia. 7.?Alcohol Abuse (F10.10) Drinks approximately 1 pint of whiskey daily. Contributor to chronic hyponatremia and nutritional deficiencies. Managed with [facility] protocol, Librium, thiamine, and folic acid during admission. Pet Sitting on alcohol cessation and refer to outpatient resources. Continue Thiamine and folic acid 8.?Altered Mental Status (R41.82) / Acute Confusion (R41.0) Presented with confusion and altered mental status, resolved with correction of hyponatremia. Mental status returned to baseline prior to discharge. 9.?Electrolyte Abnormality (E87.8) Hypomagnesemia on admission, repleted as needed. Continue to monitor electrolytes. 10.?Suicidal Ideation (R45.851) Initial concern for suicidal ideation; crisis social media executive evaluation completed. Patient denied any suicidal or homicidal ideation, no evidence of acute psychiatric risk. Suicide precautions discontinued; cleared for discharge from a psychiatric standpoint. 11.?Acute Kidney Injury (N17.9) Transient rise in creatinine (peak 1.98), likely multifactorial (volume status, electrolyte disturbances). Improved with supportive care and IV fluids. Monitor renal function as outpatient. resolved and creatinien 1.23 today Discharge Medications: Continue home medications as tolerated (levothyroxine, metoprolol, etc.) Potassium and magnesium supplements as needed Nicotine patch if still indicated Thiamine and folic acid if ongoing alcohol use Discharge Instructions: Strict fluid restriction (1500 mL/day) Avoid excessive free water intake Adhere to medication regimen Follow up with primary care, nephrology, and consider addiction counseling Return to ED for recurrent confusion, weakness, or other concerning symptoms Follow-Up: Primary care within 1 week Nephrology follow-up as scheduled Outpatient addiction counseling as appropriate Code Status:?Full code Time Spent with Patient Time attestation: Total time spent providing and/or coordinating discharge services: DS: Data Data Completed and Pending Labs on day of discharge: Labs from last 24 hours 12/13/24 12/13/24 10:19 04:59 WBC 6.3 RBC 4.66 Hgb 15.5 Hct 45.7 MCV 98.1 MCH 33.3 MCHC 33.9 RDW 12.3 Plt Count 296 MPV 9.3 Immature Gran % (Auto) 0.9 H Neut % (Auto) 57.7 Lymph % (Auto) 23.0 [place] % (Auto) 11.8 H Eos % (Auto) 4.9 H Baso % (Auto) 1.7 H Lymph # (Auto) 1.46 [place] # (Auto) 0.8 H Eos # (Auto) 0.3 Baso # (Auto) 0.1 Abs Immat Gran (auto) 0.06 H Absolute Neuts (auto) 3.7 Absolute Nucleated RBC 0.000 Nucleated RBC % 0.0 Sodium 135 L 132 L Potassium 4.0 3.5 Chloride 100 102 Carbon Dioxide 25 18 L Anion Gap 10 12 BUN 23 H 24 H Creatinine 1.23 1.30 Estim Creat Clear Calc 56 53 Estimated GFR 59 56 L Glucose 99 98 Calcium 9.5 9.4 Magnesium 1.9 Total Bilirubin 1.1 AST 29 ALT 19 Alkaline Phosphatase 50 Total Protein 6.8 Albumin 4.1 Discharge Plan Discharge Attending physician on discharge: Enrike Zazueta Consulting providers: Alma Acevedo; Toby Hair Discharging Clinician: Enrike Zazueta Anticipated Discharge Date/Time: 12/09/24 11:40 Patient Disposition: Home Activity: as tolerated Diet: regular and other - see discharge instructions Discharge Instructions: Do not drink excess fluid. Do not drink more than 1L in a day Check the sodium level in a week. Order CMP. Please discuss results with PCP or Nephrology Please follow-up with PCP, oncology and Nephrology In the event of dizziness other concerning symptoms please visit nearby ED Patient Instructions: Heart Failure (DC), Hyponatremia (DC), Hinojosa Catheter Placement and Care (DC), Abuse of Alcohol (DC) Patient Language: Barbadian Stand Alone Forms: General Discharge Information Follow-up/Referrals: Godwin Rubin MD [Primary Care Provider, [facility]] Alma Acevedo MD [Physician, Nephrology] Referral Note: Sodium follow-up Discharge Medications: New thiamine HCl (vitamin B1) [Vitamin B-1] 100 mg Tablet 100 mg PO DAILY Qty: 30 0RF folic acid 1 mg Tablet 1 mg PO DAILY Qty: 30 0RF chlordiazepoxide HCl 5 mg capsule 5 mg PO BID 2 Days Qty: 4 0RF Continued aspirin 81 mg tablet,delayed release (DR/EC) 81 mg PO DAILY multivitamin Tablet 1 tablet PO DAILY metoprolol tartrate 50 mg tablet 50 mg PO DAILY escitalopram oxalate 10 mg tablet 10 mg PO DAILY Qty: 90 1RF Rx Instructions: TAKE 1 TABLET BY MOUTH DAILY levothyroxine 75 mcg tablet See Rx Instructions .ROUTE .COMPLEX Qty: 90 1RF Dose Instruction: TAKE 1 TABLET BY MOUTH DAILY Rx Instructions: TAKE 1 TABLET BY MOUTH DAILY pantoprazole [Protonix] 40 mg tablet,delayed release (DR/EC) 40 mg PO QAM Qty: 90 2RF Other Ambulatory Orders: Comprehensive Metabolic Panel (Routine) Timeframe: 1 Week Location: Determined by Patient Ordered By: Enrike Zazueta Date of admission: 12/06/24 00:20 Primary Care Provider: Godwin Rubin Admitting Provider: Enrike Zazueta Attending physician on admission: Enrike Zazueta Condition: Stable
--- NOTE | 2024-12-13 13:15 | PCOTNOTE ---
Patient supposed to be discharged this date. Patient has made comments today, requiring crisis team to evaluate. Patient not seen for OT treatment session.
--- NOTE | 2024-12-13 13:41 | PC.NURSE ---
Jared Chairez was assisting the patient in patient's room when patient stated Do you have a pen or pencil? I would like to stab myself to with it, but then patient told MD Mohamud that he only wanted the pen or pencil to write a letter in his blood to the wire weaving loom setter. VICTORINO Lopez and VICTORINO Dominique walked into the room to begin discharge again with patient when patient stated let me just go home and shoot her and pointed at mom. However, mom continously is telling VICTORINO Lopez to disregard him and don't listen to him. Patient keeps making zip noises and zipping his mouth shut anytime asked a question. Patient repeatedly makes suicidal/homicidal remarks. RN paused discharge and contacted MD Mohamud, warehouse stocker, and charge nurse.
== END 2024-12-13 14:45 | disposition home or self-care (01) | DRG 641 ==
LOC: ANHED 22:25 → ANHICU 12-06 00:25 → ANHIMU 12-06 22:47 → ANH2MED 12-07 14:29 → ANHICU 12-09 19:37 → ANH3MED 12-11 18:55
PROVIDERS: Internal Medicine Nephrology; Nurse Practitioner; Physician Assistant; Admitting Provider General Practice; Emergency Provider Student in an Organized Health Care Education/Training Program; PCP Family Medicine; Visit Provider Internal Medicine
DX: E87.1 Hypo-osmolality and hyponatremia (principal); R45.851 Suicidal ideations; N17.9 Acute kidney failure, unspecified; I10 Essential (primary) hypertension; J44.9 Chronic obstructive pulmonary disease, unspecified; E87.6 Hypokalemia; E83.42 Hypomagnesemia; E03.9 Hypothyroidism, unspecified; E78.00 Pure hypercholesterolemia, unspecified; R63.1 Polydipsia; R68.2 Dry mouth, unspecified; F10.10 Alcohol abuse, uncomplicated; Z20.822 Contact with and (suspected) exposure to COVID-19; Z87.891 Personal history of nicotine dependence; Z79.82 Long term (current) use of aspirin; Z85.818 Personal history of malignant neoplasm of other sites of lip, oral cavity, and pharynx
CPT/HCPCS: 36415; 70450; 73070; 80048; 80053; 80143; 80307; 81001; 82077; 82436; 82533; 82570; 82948; 83690; 83735; 83930; 83935; 84100; 84295; 84300; 84443; 85025; 87637; 87641; 96374; 96375; 96376; 97110; 97162; 97166; 97530; 97535; 99285; A9270; J0834; J1650; J2060; J2405; J3475; J3480; J7030; J7040; J7131